=== PATIENT | male | born 1945 | race Caucasian/White ===

== ENCOUNTER 2016-09-08 17:02 | Inpatient (IN) ==
[2016-09-08] MEDS ORDERED: Ipratropium/Albuterol Neb 3 ML IH ONE (17:36)
[2016-09-08 17:53] LABS: Basophils # 0.1 K/mcL (0.0-0.2); Basophils % 0.6 %; Eosinophils # 0.9 K/mcL (0.0-0.6); Hematocrit 50.1 % (37.5-50.1); Hemoglobin 16.5 g/dL (12.9-16.9); Immature Granulocytes % 0.3 % (0-4); Lymphocytes # 1.6 K/mcL (0.6-4.6); Lymphocytes % 18.1 %; Mean Corpuscular HGB Conc 32.9 g/dL (31.6-35.5); Mean Corpuscular Hemoglobin 29.1 pg (28.0-33.3); Mean Corpuscular Volume 88.4 fL (83.0-100.0); Mean Platelet Volume 8.8 fL (9.4-12.4); Monocytes # 0.7 K/mcL (0.0-1.3); Monocytes % 8.3 %; Neutrophils # 5.6 K/mcL (1.6-8.9); Platelet Count 279 K/mcL (140-400); Red Blood Count 5.67 M/mcL (4.19-5.50); Red Cell Distribution Width 13.8 % (11.5-14.5); Segmented Neutrophils % 62.7 %
[2016-09-08 18:07] LABS: BUN/Creatinine Ratio 14 (6-26); Blood Urea Nitrogen 15 mg/dL (8-26); Calcium 9.8 mg/dL (8.6-10.8); Carbon Dioxide 28 mEq/L (19-29); Chloride 102 mEq/L (98-109); Glucose 92 mg/dL (70-99); Osmolality,Calculated 288 (280-300); Potassium 4.5 mEq/L (3.5-4.5); Sodium 139 mEq/L (136-145); eGFR For African Americans > 60 (> 60); eGFR For Non-African Americans > 60 (> 60)
--- NOTE | 2016-09-08 18:11 | Emergency Department Note ---
Disposition Clinical Impression: Lung disease, SOB (shortness of breath), Abnormal chest x-ray, Necrotizing pneumonia, Elevated blood pressure reading Disposition: Admitted As Inpatient Condition: Fair SOB HPI - General Chief Complaint: ED Shortness of Breath/Dyspnea Stated Complaint: ROSA Time Seen by Provider: 09/08/16 17:35 Source: patient Limitations: no limitations - History of Present Illness 71 mL male comes in with chief complaint of shortness of breath. Patient states he has had shortness of breath for the last 3-4 years. However in the last week this has worsened to the point where he cannot go from point a to point b. patient says he has a chronic productive clear sputum. Patient says he uses cigarettes but has recently quit. Patient does not have any past medical history, does not follow up with PCP. At presentation he is hypertensive with systolic of 200. Patient says he uses antiallergy medication for sinusitis. He denies fevers, chills. He denies chest pain, abdominal pain. He denies syncope. - Related Data Allergies Allergy/AdvReac Type Severity Reaction Status Date / Time Penicillins [PCN] AdvReac Hives Verified 09/08/16 17:11 Review of Systems: Constitutional: Denies fever, chills HEENT: Denies headache, vision changes, neck pain, sore throat, rhinorrhea, reports sinusitis Heart: Denies chest pain palpitations Lungs: Reports shortness of breath and productive cough Abdomen: Denies abdominal pain nausea vomiting diarrhea Extremities: Denies swelling, pain Neuro: Denies numbness, and tingling Past Medical History - Past Medical History Medical history: Reports: no medical history Psychiatric history: Reports: no psych history - Social History Smoking Status: Former smoker Smokeless Tobacco Status: No Alcohol use: Reports: rarely Drug use: Reports: none Physical Exam General: Alert and oriented to place time and situation. Without distress HEENT: Head atraumatic, normocephalic, EOMI, PERRLA, neck nontender to palpation , absent Lymphadenopathy, Moist Mucous Membranes, Heart: Regular rate and rhythm with no murmur Lungs: Diffuse wheezing upper and lower lobes bilaterally Abdomen: Soft nontender, nondistended positive bowel sounds Extremities: Absent pedal edema, Neuro: Cranial nerves II through XII intact, sensation equal bilaterally, strength upper and lower extremity 5/5, alert oriented 3 Vascular: Pedal and radialpulses 2 out of 4 - General Limitations: no limitations General appearance: alert Course Course Narrative: CBC, BMP, troponin, EKG, chest x-ray were done. - Reevaluation(s) Reevaluation #1: CBC and BMP did not show any abnormalities. Troponin was within normal limits. Chest showed right upper lobe consolidation however this was unclear if it was mass, pneumonia. Patient denies any previous surgeries to the chest area. QuantiFERON cold was ordered. CT chest with contrast ordered. Time: 18:47 Reevaluation #2: Patient was trasferred to Dr. Kohli. Time: 19:03 Vital Signs Temperature 98.2 F 09/08/16 17:07 Pulse Rate 90 09/08/16 17:07 Respiratory Rate 22 09/08/16 17:07 Blood Pressure 200/103 09/08/16 17:07 O2 Sat by Pulse Oximetry 94 09/08/16 17:07 Temperature 98.2 F 09/08/16 17:07 Pulse Rate 79 09/08/16 20:00 Respiratory Rate 18 09/08/16 21:20 Blood Pressure 168/99 09/08/16 21:20 O2 Sat by Pulse Oximetry 93 09/08/16 20:00 Oxygen Delivery Oxygen Delivery Room Air Shortness of Breath/Dyspnea - Medical Records Medical records reviewed: Yes I reviewed the patient's medical records. - Lab Data Lab results reviewed: Yes I reviewed the patient's lab results. Result diagrams: 09/08/16 17:46 09/08/16 17:46 Lab Results 09/08/16 09/08/16 09/08/16 Range/Units 17:46 17:46 17:46 WBC 9.0 (4.3-11.1) K/mcL RBC 5.67 H (4.19-5.50) M/mcL Hgb 16.5 (12.9-16.9) g/dL Hct 50.1 (37.5-50.1) % MCV 88.4 (83.0-100.0) fL MCH 29.1 (28.0-33.3) pg MCHC 32.9 (31.6-35.5) g/dL RDW 13.8 (11.5-14.5) % Plt Count 279 (140-400) K/mcL MPV 8.8 L (9.4-12.4) fL Immature Gran % 0.3 (0-4) % Seg Neutrophils % 62.7 % Lymphocytes % 18.1 % Monocytes % 8.3 % Eosinophils % 10.0 % Basophils % 0.6 % Neutrophils # 5.6 (1.6-8.9) K/mcL Lymphocytes # 1.6 (0.6-4.6) K/mcL Monocytes # 0.7 (0.0-1.3) K/mcL Eosinophils # 0.9 H (0.0-0.6) K/mcL Basophils # 0.1 (0.0-0.2) K/mcL Sodium 139 (136-145) mEq/L Potassium 4.5 (3.5-4.5) mEq/L Chloride 102 (98-109) mEq/L Carbon Dioxide 28 (19-29) mEq/L BUN 15 (8-26) mg/dL Creatinine 1.07 (0.72-1.25) mg/dL Est GFR ( Amer) > 60 (> 60) Est GFR (Non-Af Amer) > 60 (> 60) BUN/Creatinine Ratio 14 (6-26) Glucose 92 (70-99) mg/dL Calculated Osmolality 288 (280-300) Lactic Acid (0.5-2.2) mmol/L Calcium 9.8 (8.6-10.8) mg/dL Troponin I 0.01 (0-0.03) ng/mL B-Natriuretic Peptide (0-100) pg/mL 09/08/16 09/08/16 Range/Units 17:46 20:53 WBC (4.3-11.1) K/mcL RBC (4.19-5.50) M/mcL Hgb (12.9-16.9) g/dL Hct (37.5-50.1) % MCV (83.0-100.0) fL MCH (28.0-33.3) pg MCHC (31.6-35.5) g/dL RDW (11.5-14.5) % Plt Count (140-400) K/mcL MPV (9.4-12.4) fL Immature Gran % (0-4) % Seg Neutrophils % % Lymphocytes % % Monocytes % % Eosinophils % % Basophils % % Neutrophils # (1.6-8.9) K/mcL Lymphocytes # (0.6-4.6) K/mcL Monocytes # (0.0-1.3) K/mcL Eosinophils # (0.0-0.6) K/mcL Basophils # (0.0-0.2) K/mcL Sodium (136-145) mEq/L Potassium (3.5-4.5) mEq/L Chloride (98-109) mEq/L Carbon Dioxide (19-29) mEq/L BUN (8-26) mg/dL Creatinine (0.72-1.25) mg/dL Est GFR ( Amer) (> 60) Est GFR (Non-Af Amer) (> 60) BUN/Creatinine Ratio (6-26) Glucose (70-99) mg/dL Calculated Osmolality (280-300) Lactic Acid 0.9 (0.5-2.2) mmol/L Calcium (8.6-10.8) mg/dL Troponin I (0-0.03) ng/mL B-Natriuretic Peptide 45 (0-100) pg/mL - Radiology Data Radiology results reviewed: Yes I reviewed the patient's radiology results. - EKG Data EKG attestation: Yes I reviewed and interpreted this EKG. EKG results narrative: Sinus rate 88, with no st-twave changes, poor r-wave progression, Qwaves in leas V2-6. Normal sinus rhythm. Attestation Statement - Attestation Attestation: I examined this patient and my medical decision-making was reviewed with the PROCESS ENGINEER/PA/Advanced Practice Nurse/Resident Physician. I agree with the documented findings, disposition and treatment plan as described except to the extent set forth below.
--- NOTE | 2016-09-08 19:11 | Emergency Department Note ---
Disposition Clinical Impression: Lung disease, SOB (shortness of breath), Abnormal chest x-ray, Necrotizing pneumonia, Elevated blood pressure reading Disposition: Transfer Other Condition: Fair General Adult HPI - General Chief complaint: ED Shortness of Breath/Dyspnea Stated complaint: ROSA Time Seen by Provider: 09/08/16 17:35 Source: patient Limitations: no limitations - History of Present Illness HPI Narrative: Please see prior providers notes for complete history and physical. This is a continuation of prior providers documentation. Pain Scale: 0 - Related Data Allergies Allergy/AdvReac Type Severity Reaction Status Date / Time Penicillins [PCN] AdvReac Hives Verified 09/08/16 17:11 Past Medical History - Past Medical History Medical history: Reports: no medical history Psychiatric history: Reports: no psych history - Social History Smoking Status: Former smoker Smokeless Tobacco Status: No Alcohol use: Reports: rarely Drug use: Reports: none Physical Exam - General Limitations: no limitations General appearance: alert, in no apparent distress - Head Head exam: atraumatic, normal inspection - Eye Eye exam: Present: normal appearance, EOMI - ENT ENT exam: normal exam, mucous membranes moist - Neck Neck exam: Present: normal inspection, trachea midline - Chest Chest inspection: Present: normal inspection, symmetric chest wall rise - Respiratory Respiratory exam: Present: wheezes (faint expiratory wheeze), prolonged expiratory phase. Absent: respiratory distress - Cardiovascular Cardiovascular exam: Present: regular rate, normal rhythm - Abdominal Exam Abdominal exam: Present: soft, Non-Tender - Extremities Exam Extremities exam: Present: normal inspection. Absent: pedal edema - Neurological Exam Neurological exam: Present: alert - Skin Skin exam: Present: warm, dry, intact, normal color Course Course Narrative: Patient seen and examined. History confirmed by the patient bedside. Dyspnea at rest and with exertion over the past 4-5 days. Baseline cough. No fevers. No chest pain. Patient states he does not see a provider on a regular basis. Patient does have a smoking history. Awaiting CT of the chest. - Reevaluation(s) Reevaluation #1: No further needs at this time for the patient. Time: 19:13 Reevaluation #2: Patient was updated on plan of care. All questions were asked. Time: 20:18 Vital Signs Temperature 98.2 F 09/08/16 17:07 Pulse Rate 90 09/08/16 17:07 Respiratory Rate 22 09/08/16 17:07 Blood Pressure 200/103 09/08/16 17:07 O2 Sat by Pulse Oximetry 94 09/08/16 17:07 Temperature 98.2 F 09/08/16 17:07 Pulse Rate 79 09/08/16 20:00 Respiratory Rate 16 09/08/16 20:00 Blood Pressure 153/111 09/08/16 20:00 O2 Sat by Pulse Oximetry 93 09/08/16 20:00 Oxygen Delivery Oxygen Delivery Room Air Medical Decision Making - MDM Narrative Medical decision making narrative: 71-year-old male with a significant smoking history presents for evaluation of dyspnea. Noticed dyspnea over the past 1-2 years that is worsened acutely in the past 5 days. Dyspnea at rest as well as exertion. Patient states he is not able to perform his activities of daily living without stopping to catch his breath. Denies any chest pain. Notes a clear productive sputum which is unchanged from his baseline. Denies any fevers. Denies being immunocompromise. Periods of an incarceration. No night sweats. No recent travel. Patient was evaluated with labs and initial chest x-rays as well as aerosols. Patient's aerosols seem to improve his breathing. Patient's chest x- ray was suggestive of possible right upper lobe infiltrate or cavitary lesion. In order to further characterize the lesion the patient had a CT of the chest with contrast. Shows abscess versus necrotizing pneumonia. Patient started on triple antibiotics. Blood cultures. We will discussed with the hospitalist for admission and further disposition. Patient was accepted by the hospitalist. Patient was started on Levaquin, vancomycin as well as clindamycin due to concerns of possible abscess necrotizing pneumonia. - Lab Data Lab results reviewed: Yes I reviewed the patient's lab results. Result diagrams: 09/08/16 17:46 09/08/16 17:46 Lab Results 09/08/16 09/08/16 09/08/16 Range/Units 17:46 17:46 17:46 WBC 9.0 (4.3-11.1) K/mcL RBC 5.67 H (4.19-5.50) M/mcL Hgb 16.5 (12.9-16.9) g/dL Hct 50.1 (37.5-50.1) % MCV 88.4 (83.0-100.0) fL MCH 29.1 (28.0-33.3) pg MCHC 32.9 (31.6-35.5) g/dL RDW 13.8 (11.5-14.5) % Plt Count 279 (140-400) K/mcL MPV 8.8 L (9.4-12.4) fL Immature Gran % 0.3 (0-4) % Seg Neutrophils % 62.7 % Lymphocytes % 18.1 % Monocytes % 8.3 % Eosinophils % 10.0 % Basophils % 0.6 % Neutrophils # 5.6 (1.6-8.9) K/mcL Lymphocytes # 1.6 (0.6-4.6) K/mcL Monocytes # 0.7 (0.0-1.3) K/mcL Eosinophils # 0.9 H (0.0-0.6) K/mcL Basophils # 0.1 (0.0-0.2) K/mcL Sodium 139 (136-145) mEq/L Potassium 4.5 (3.5-4.5) mEq/L Chloride 102 (98-109) mEq/L Carbon Dioxide 28 (19-29) mEq/L BUN 15 (8-26) mg/dL Creatinine 1.07 (0.72-1.25) mg/dL Est GFR ( Amer) > 60 (> 60) Est GFR (Non-Af Amer) > 60 (> 60) BUN/Creatinine Ratio 14 (6-26) Glucose 92 (70-99) mg/dL Calculated Osmolality 288 (280-300) Lactic Acid (0.5-2.2) mmol/L Calcium 9.8 (8.6-10.8) mg/dL Troponin I 0.01 (0-0.03) ng/mL B-Natriuretic Peptide (0-100) pg/mL 09/08/16 09/08/16 Range/Units 17:46 20:53 WBC (4.3-11.1) K/mcL RBC (4.19-5.50) M/mcL Hgb (12.9-16.9) g/dL Hct (37.5-50.1) % MCV (83.0-100.0) fL MCH (28.0-33.3) pg MCHC (31.6-35.5) g/dL RDW (11.5-14.5) % Plt Count (140-400) K/mcL MPV (9.4-12.4) fL Immature Gran % (0-4) % Seg Neutrophils % % Lymphocytes % % Monocytes % % Eosinophils % % Basophils % % Neutrophils # (1.6-8.9) K/mcL Lymphocytes # (0.6-4.6) K/mcL Monocytes # (0.0-1.3) K/mcL Eosinophils # (0.0-0.6) K/mcL Basophils # (0.0-0.2) K/mcL Sodium (136-145) mEq/L Potassium (3.5-4.5) mEq/L Chloride (98-109) mEq/L Carbon Dioxide (19-29) mEq/L BUN (8-26) mg/dL Creatinine (0.72-1.25) mg/dL Est GFR ( Amer) (> 60) Est GFR (Non-Af Amer) (> 60) BUN/Creatinine Ratio (6-26) Glucose (70-99) mg/dL Calculated Osmolality (280-300) Lactic Acid 0.9 (0.5-2.2) mmol/L Calcium (8.6-10.8) mg/dL Troponin I (0-0.03) ng/mL B-Natriuretic Peptide 45 (0-100) pg/mL - Radiology Data Radiology results reviewed: Yes I reviewed the patient's radiology results. Chest X-Ray 09/08/16 17:35 IMPRESSION: Volume loss to right lung to include superior deviation of right hilum along with opacities to right upper lung zone as well as rightward deviation of trachea. Findings are suggestive for prior intervention such as partial pneumonectomy. Correlate clinically. It would be difficult to exclude superimposed acute process such as right upper lobe pneumonia. Other underlying pathology, to include neoplastic pathology, cannot be excluded. No priors to assess for change. If there are any outside prior studies these would be of use. D/ / 09/08/2016 18:20:59 Piter Wang MD / andrew Interpreting Provider: Piter Wang MD Chest CT 09/08/16 18:40 IMPRESSION: 1. Severe bilateral emphysematous changes with consolidative changes within the posterior aspect of the right upper lobe with central region of low attenuation measuring 2.1 x 3.3 x 2.1 cm concerning central necrosis/abscess and necrotizing pneumonia. Follow-up to resolution recommended after appropriate clinical therapy. D/ / Nghia Schwartz MD / Nghia Schwartz MD Interpreting Provider: Nghia Schwartz MD aleesa - [facility] Situation: Demographics Background: Presenting Complaint, Relevant PMH, Meds, & Allergies Assessment: Vital Signs, Course and respsone to treatment, Patient/Family Expectation, Pertinant Lab Results Recommendation: Barrier(s) to disposition, Recommendation based on pending studies, treatments, or consults [facility] Report Given to: Dr. John Bey Repor Time: 20:47 Attestation Statement - Attestation Attestation: I examined this patient and my medical decision-making was reviewed with the [employer] SUPERINTENDENT/PA/Advanced Practice Nurse/Resident Physician. I agree with the documented findings, disposition and treatment plan as described except to the extent set forth below. 71-year-old male presents ED because of cough and dyspnea. Symptoms have been evolving for the past week and escalated today. Low-grade fever. No chills or rigors. No focal chest pain. No vomiting or diarrhea. No joint pain. No known ill exposures. No recent long distance travel. Elderly male slight slightly tachypneic. On arrival wheezes noted. Chest is with focal rhonchi on the right lateral lung josé with biphasic wheezes throughout the right lung. Left lung is fairly clear. Cardiac exam regular abdomen soft nondistended nontender. Extremity is warm and dry without rash or asymmetric edema. Chest x-ray with marketed changes in the right upper lung field she just above infiltrate. CT of the chest suggest necrotizing pneumonia. He did improve with sequential aerosols but will require aggressive IV antibiotics and further workup. He is given IV Levaquin, vancomycin and clindamycin. He is admitted to the hospitalist service. The high probability of a clinically significant, sudden or life threatening deterioration of the [cardiopulmonary] system(s) required my full and direct attention, intervention and personal management. The aggregate critical care time was [35] minutes. This time is in addition to time spent performing reported procedures but includes the following: [x] Data Review and interpretation [x] Patient assessment and monitoring of vital signs [x] Documentation [x] Medication orders and management
[2016-09-08] MEDS ORDERED: Levofloxacin 750 MG/150 ML 750 MG/150 ML BAG IVPB ONE (19:29)
[2016-09-08] MEDS ORDERED: Piperacillin/Tazobactam 4.5 GM in D5% in Water (Mini-Bag+) 100 ML IVPB ONE (19:42)
[2016-09-08] MEDS ORDERED: Vancomycin 1,250 MG in D5% in Water 250 ML IVPB ONE (19:43)
[2016-09-08] MEDS ORDERED: 0.9 % Sodium Chloride 1,000 ML IVC ONE (19:44)
[2016-09-08] MEDS ORDERED: Clindamycin 600 MG/50 ML 600 MG/50 ML IV.SOLN IVPB ONE (20:46)
[2016-09-08] MEDS ORDERED: Naloxone 0.4 MG/ML INJ IVP PRN (21:58)
[2016-09-08] MEDS ORDERED: methylPREDNISolone 125 MG/2 ML VIAL IVP ONE (22:00)
[2016-09-08] MEDS ORDERED: Ipratropium/Albuterol Neb 3 ML IH PRN (22:00)
--- NOTE | 2016-09-08 22:09 | Internal Med History&Physical ---
Date of Encounter: 09/08/16 Time of Encounter: 22:05 Assessment and Plan (1) Acute exacerbation of chronic obstructive airways disease Current visit: Yes Status: Acute Acute exacerbation of COPD: Treat with Solu-Medrol, levofloxacin, duo-nebs and mucinex. (2) Abnormal chest x-ray Current visit: Yes Status: Acute Abnormal chest x-ray and CT scan of the chest. CT chest reported: Severe bilateral emphysematous changes with consolidative changes within the posterior aspect of the right upper lobe with central region of low attenuation. Clinically he does not seem to have pneumonia. His clinical presentation seem to be related to acute exacerbation of COPD. Will request pulmonary consult for further workup and management. (3) Hypertension Current visit: Yes Status: Acute Started on amlodipine. Monitor BP. Qualifiers: Hypertension type: essential hypertension Qualified Code(s): I10 - Essential (primary) hypertension (4) DVT prophylaxis Current visit: Yes Status: Acute subq heparin Internal Medicine - H&P: HPI Chief complaint: Shortness of breath Admitted From: Emergency Dept Plans for Post Hospital Care: Home History of present illness: Mr. Hidalgo is a 71 year old male, who denies significant past medical history presents with 4-5 day history of acute worsening of shortness of breath. He noticed some shortness of breath for about 1-2 years, with acute worsening in the last 4-5 days. He reports shortness of breath at rest and on minimal exertion. He has cough with some white sputum. He denies chest pain, fever, chills, nausea, vomiting, palpitations, abdominal pain, dysuria, hematuria, bowel problems. He was evaluated in the emergency department and was treated with the bronchodilators. Chest x-ray was abnormal and hence a CT scan of the chest was done which reported Severe bilateral emphysematous changes with consolidative changes within the posterior aspect of the right upper lobe with central region of low attenuation. He was given clindamycin, vancomycin, Zosyn and levofloxacin in the ER. He is admitted to the hospitalist service for further management. Pt has 40 year h/o smoking. He denies occupation exposure to dust Past Med Surg Social Fam HX - Past Medical History Medical history: no medical history Psychiatric history: no psych history - Past Surgical History Surgical History: no surgical history - Social History Smoking Status: Former smoker Smokeless Tobacco Status: No Alcohol use: rarely Drug use: none - Family History Father History Unknown: Yes Age at : 69 Cause of : heart Hx Family Cardiac Disorders: Yes Hx Family Respiratory Disorders: Yes Hx Family Cancer: No Hx Family GI Disorders: No Hx Family Genitourinary Disorders: No Hx Family Endocrine Disorder: Yes Hx Family Musculoskeletal Disorders: No Hx Family Neuromuscular Disorders: No Internal Medicine - H&P: Meds Allergies Penicillins [PCN] Adverse Reaction (Verified 09/08/16 17:11) Hives All Systems PM: A 10-system review of systems was performed and is negative for pertinent findings except as documented above in the HPI. - Constitutional Vitals: Temp Pulse Resp BP Pulse Ox 98.2 F 79 18 168/99 93 09/08/16 17:07 09/08/16 20:00 09/08/16 21:20 09/08/16 21:20 09/08/16 20:00 Exam: General: Short of breath at rest at the time of my evaluation. Using pursed lips HEENT: Oral mucosa is moist. No conjunctival palor or scleral icterus Neck: No obvious neck swellings Lungs: B/L extensive wheezing present Cardiac: Regular rate and rhythm. No significant murmurs Abdomen: Soft, non tender. Bowel sounds present Genitourinary: No benavides catheter Neurological: Alert and oriented. No gross localizing deficits Psych: Not aggressive or agitated Extremities: no significant leg edema Skin: No generalized rash Internal Med - H&P Results - Labs CBC & Chem 7: 09/08/16 17:46 09/08/16 17:46 - EKG Data -: EKG Interpreted by Myself EKG shows normal: sinus rhythm - EKG Data EKG comments: 09/08/16 23:06 ?RBBB - Impressions ITS Impressions Chest X-Ray 09/08/16 17:35 IMPRESSION: Volume loss to right lung to include superior deviation of right hilum along with opacities to right upper lung zone as well as rightward deviation of trachea. Findings are suggestive for prior intervention such as partial pneumonectomy. Correlate clinically. It would be difficult to exclude superimposed acute process such as right upper lobe pneumonia. Other underlying pathology, to include neoplastic pathology, cannot be excluded. No priors to assess for change. If there are any outside prior studies these would be of use. D/ / 09/08/2016 18:20:59 Piter Wang MD / andrew Interpreting Provider: Piter Wang MD Chest CT 09/08/16 18:40 IMPRESSION: 1. Severe bilateral emphysematous changes with consolidative changes within the posterior aspect of the right upper lobe with central region of low attenuation measuring 2.1 x 3.3 x 2.1 cm concerning central necrosis/abscess and necrotizing pneumonia. Follow-up to resolution recommended after appropriate clinical therapy. D/ / Nghia Schwartz MD / Nghia Schwartz MD Interpreting Provider: Nghia Schwartz MD
[2016-09-08] MEDS: Ipratropium/Albuterol Neb 3 ML IH SCH (22:16)
[2016-09-08] MEDS: Levofloxacin 500 MG/100 ML 500 MG/100 ML BAG IVPB SCH (22:59)
[2016-09-09] MEDS: amLODIPine 5 MG TABLET PO SCH ×2 (01:30→09:14)
[2016-09-09] MEDS: Ipratropium/Albuterol Neb 3 ML IH SCH ×4 (04:49→22:15)
[2016-09-09] MEDS: MethylPREDNISolone 40 MG/ML VIAL IVP SCH ×4 (06:28→23:05)
[2016-09-09] MEDS: *HR* Heparin 5,000 UNIT/ML VIAL SQ SCH ×3 (06:30→23:05)
--- NOTE | 2016-09-09 08:20 | Internal Med Progress Note ---
Date of Encounter: 09/09/16 Time of Encounter: 08:20 - Assessment and plan (1) Acute exacerbation of chronic obstructive airways disease Current Visit: Yes Status: Acute Assessment and plan: 71/male No PCP Retired [address] [facility] [employer]. Started smoking at the age of 16, 1 pack a day, stopped smoking 3 weeks back. Worsening shortness of breath for 4-5 days. Associated with wheezing and cough. Came to the emergency room for evaluation as patient could not walk from bed to bathroom. He Has a daughter who lives in [place]. Evaluated by emergency room and concern was raised regarding possible lung abscess. Patient is afebrile, saturation on room air 98%, is not tachypneic/tachycardic. White blood cell count normal, no band cells, renal function normal. Patient has a bilateral polyphonic wheeze. Assessment: Likely COPD exacerbation unlikely lung abscess Plan: We will continue IV levofloxacin 750 mg once a day We will continue IV steroids 40 mg every 8 hours We will continue bronchodilators every 4 hours Close observation. Will discuss case with pulmonary. (2) Hypertension Current Visit: Yes Status: Acute Assessment and plan: Patient was started on amlodipine. We will continue to observe the blood pressure. Qualifiers: Hypertension type: essential hypertension Qualified Code(s): I10 - Essential (primary) hypertension (3) DVT prophylaxis Current Visit: Yes Status: Acute Assessment and plan: Heparin. Medical decision making: This patient has a [id number]-[id number] risk of worsening in spite of being on appropriate antibiotics in view of underlying lung disease. - Subjective Interval history: Seen and examined. Chart is reviewed. Patient is comfortably lying in the bed. Patient stood up and sat on the chair next to the bed. Patient denies any chest pain, shortness of breath, abdominal pain, vomiting and diarrhea. - Constitutional Vitals: Temp Pulse Resp BP Pulse Ox 98.2 F 85 16 141/84 98 09/09/16 06:57 09/09/16 06:57 09/09/16 06:57 09/09/16 06:57 09/09/16 06:57 General appearance: Present: A&O X 3, pleasant, no acute distress, answers questions appropriately - Head Head exam: Present: atraumatic, normocephalic - Eye Eye exam: Present: PERRL, conjuntiva pink, sclera anicteric Pupils: Present: PERRL - Neck Neck exam general surgery: Present: supple, trachea midline. Absent: lymphadenopathy - Respiratory Respiratory exam: Present: CTAB. Absent: accessory muscle use, rales, rhonchi, wheezes - Cardiovascular Cardiovascular exam: Present: RRR, +S1, +S2. Absent: diastolic murmur, gallop, rubs, systolic murmur - GI/Abdominal GI/Abdominal exam: Present: normal bowel sounds, soft, no peritoneal signs. Absent: distended, tenderness - Extremities Exam Extremities exam: Present: warm, radial pulses palpable and symetrical. Absent : calf tenderness, cyanotic, pedal edema - Neurological Exam Neurological exam: Present: CN II-XII intact, oriented X3, no focal deficits. Absent: pronater drift, facial droop, speech deficit - Skin Skin exam: Present: dry, intact Internal Medicine: Result - Labs CBC & Chem 7: 09/08/16 17:46 09/08/16 17:46 Consult Discharge Plan - Plan Referrals: NO,PCP [Primary Care Provider] -
[2016-09-09] MEDS: Famotidine 20 MG TABLET PO SCH ×2 (09:13→20:56)
[2016-09-09] MEDS: Lactobacillus 1 EACH CAP.SPRINK PO SCH ×2 (09:13→20:56)
--- NOTE | 2016-09-09 15:01 | Pulmonology Consult Note ---
Date of Encounter: 09/09/16 Time of Encounter: 14:59 Assessment and Plan (1) Abnormal chest CT Current Visit: Yes Status: Acute As previously noted, the abnormal CT scan findings of the chest are likely due to fibrocystic disease of the lung which given the findings of calcified lymph nodes may be the stigmata of prior histoplasmosis. The patient may also have focal bronchiectasis accompanying fibrocystic disease changes and given the area of low attenuation within the parenchymal infiltrate within the right upper lobe, this suggests necrosis. This finding may be due to infection ( although the patient does not have any specific symptoms highly suggestive of infection) or less likely malignancy. Nonetheless, the patient is an active smoker and does have other findings suggestive of emphysema/COPD and thus I think it prudent that he undergo bronchoscopy with attention to the right upper lobe for further evaluation. I think it would be prudent to provide antibiotic therapy however Levaquin should be sufficient pending results of bronchoscopy. The patient obviously does have emphysema/COPD I believe he is symptomatic from the same and therefore he would benefit from use of bronchodilator therapy for short-term long-term management and perhaps would also benefit from a short course of systemic steroids. I reviewed the situation with the patient and the primary service. He has agreed to bronchoscopy which can be performed at the discretion of the pulmonary rounding service next week. Mekhi Claudia [phone] Code(s): R93.8 - Abnormal findings on diagnostic imaging of other specified body structures SNOMED Code(s): 291611122 History of Present Illness Consult date: 09/09/16 Chief complaint: Abnormal chest CT scan History of present illness: This is a pleasant 71-year-old male active cigarette smoker of at least 40-pack- year intensive who undoubtedly has underlying COPD who was admitted to the hospital with complaints of rather abrupt worsening of mild chronic breathlessness. He denied concurrent difficulty with chest pain, purulent sputum expectoration, hemoptysis. Given his complaints, imaging study of the chest was obtained which revealed several abnormalities and hence pulmonary consultation requested. 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 He does not recall prior respiratory infections he has either a child or young adult. Retrospectively, he does admit to rather progressive mild breathlessness and mild activity limitation over the past several years. Past Med Surg Social Fam HX - Past Medical History Medical history: no medical history Psychiatric history: no psych history - Past Surgical History Surgical History: no surgical history - Social History Smoking Status: Former smoker Smokeless Tobacco Status: No Alcohol use: rarely Drug use: none - Family History Father History Unknown: Yes Age at : 69 Cause of : heart Hx Family Cardiac Disorders: Yes Hx Family Respiratory Disorders: Yes Hx Family Cancer: No Hx Family GI Disorders: No Hx Family Genitourinary Disorders: No Hx Family Endocrine Disorder: Yes Hx Family Musculoskeletal Disorders: No Hx Family Neuromuscular Disorders: No Medications and Allergies Allergies Penicillins [PCN] Adverse Reaction (Verified 09/08/16 17:11) Hives All Systems: A 10-system review of systems was performed and is negative for pertinent findings except as documented above in the HPI. - Constitutional Constitutional: other (Patient denies weight loss, night sweats, fevers or chills furthermore, he denies anorexia) - Respiratory Respiratory: as per HPI Physical Examination Vital Signs: Vital Signs, Last 4 Hours Temp Pulse Resp BP Pulse Ox 09/09/16 11:32 98.3 F 91 16 154/90 97 General appearance: no acute distress, other (Patient appears his stated age) Eyes: nonicteric ENT: oropharynx moist Neck: supple Inspection: other (Mild kyphosis) Auscultation: bilateral: diminished breath sounds (Clear lung josé to auscultation) Cardiovascular: regular rate and rhythm Gastrointestinal: normoactive bowel sounds, non-distended Extremities: no cyanosis, no edema, no clubbing normal mental status, non-focal exam mood appropriate Results - Laboratory Findings CBC and BMP: 09/08/16 17:46 09/08/16 17:46 Abnormal lab findings: Abnormal lab results RBC 5.67 M/mcL (4.19-5.50) H 09/08/16 17:46 MPV 8.8 fL (9.4-12.4) L 09/08/16 17:46 Eosinophils # 0.9 K/mcL (0.0-0.6) H 09/08/16 17:46 - Diagnostic Findings CT scan - chest: other (Chest CT scan reviewed notable for fibrocystic disease with hilar retraction within the right upper lung zone calcified pretracheal lymph nodes and right hilar lymph nodes emphysematous changes within the left lung particularly left upper lung zone. In addition, within the posterior segment of the right upper lobe, there is parenchymal infiltrate and suggestion within the parenchyma of low attenuation area suggestive of necrosis.) - Clinical Findings Intake & Output: Intake & Output 09/08/16 09/09/16 09/09/16 23:59 07:59 15:59 Intake Total 100 / 100 480 / 480 Balance 100 / 100 480 / 480 Weight 81.1 kg Consult Discharge Plan - Plan Referrals: NO,PCP [Primary Care Provider] -
--- NOTE | 2016-09-09 17:55 | Electrocardiograph Report ---
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
[2016-09-09] MEDS: Levofloxacin 500 MG/100 ML 500 MG/100 ML BAG IVPB SCH (23:05)
[2016-09-10] MEDS: Ipratropium/Albuterol Neb 3 ML IH SCH ×4 (03:32→22:35)
[2016-09-10] MEDS: *HR* Heparin 5,000 UNIT/ML VIAL SQ SCH ×3 (05:14→22:29)
--- NOTE | 2016-09-10 06:55 | Pulmonology Progress Note ---
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 Patient will benefit from maintenance inhaler regimien such as LAMA at time of discharge. He can be transitioned to enteral steroids to complete a 5 Day burst (e.g prednisone 40mg daily) (3) DVT prophylaxis Current Visit: Yes Status: Acute cont chemical DVT prophylaxis. Unlikely that RLE pain is VTE related given patient has been recieiving prophylaxis. Will defer to primary to for further evaluation including RLE u/s if felt indicated. (4) Necrotizing pneumonia Current Visit: Yes Status: Acute I suspect that given physical exam findings this is not truly "necrotizing" PNA as much as chronic infection superimposed on chronic lung disease. -Plan for bronch today. -Patient to remain NPO -Cont Levaquin. -Cultures pending Subjective Principal diagnosis: Pneumonia Interval history: From a respiratory standpoint, patient denies any changes. He does report that his right leg "buckled" while he was walking precipitated by intense pain. It has been sore since. Objective PUL Vital signs: Last Vital Signs Temp 97.7 F 09/10/16 06:43 Pulse 93 09/10/16 06:43 Resp 15 09/10/16 06:43 BP 135/82 09/10/16 06:43 Pulse Ox 95 09/10/16 06:43 General appearance: no acute distress Auscultation: right: diminished breath sounds (right upper lung field), bilateral: clear (no wheezes) Cardiovascular: regular rate and rhythm Extremities: no edema, no clubbing Musculoskeletal: other (right leg without swelling or erythema mild tenderness to palpation over gastronemius ) Results - Laboratory Findings CBC and BMP: 09/08/16 17:46 09/08/16 17:46 Abnormal lab findings: Abnormal lab results RBC 5.67 M/mcL (4.19-5.50) H 09/08/16 17:46 MPV 8.8 fL (9.4-12.4) L 09/08/16 17:46 Eosinophils # 0.9 K/mcL (0.0-0.6) H 09/08/16 17:46 - Diagnostic Findings Chest x-ray: report reviewed, image reviewed CT scan - chest: report reviewed, image reviewed - Clinical Findings Intake & Output: Intake & Output 09/09/16 09/09/16 09/10/16 15:59 23:59 07:59 Intake Total 720 / 720 0 / 0 Output Total 0 / 0 Balance 720 / 720 0 / 0 Weight 82.1 kg Consult Discharge Plan - Plan Referrals: NO,PCP [Primary Care Provider] -
[2016-09-10] MEDS: MethylPREDNISolone 40 MG/ML VIAL IVP SCH ×2 (09:22→18:12)
[2016-09-10] MEDS: amLODIPine 5 MG TABLET PO SCH (09:22)
[2016-09-10] MEDS: Lactobacillus 1 EACH CAP.SPRINK PO SCH ×2 (09:22→22:24)
[2016-09-10] MEDS: Famotidine 20 MG TABLET PO SCH ×2 (09:22→22:24)
[2016-09-10] MEDS ORDERED: Tetracaine/Benzocaine/Butamben 200MG/SPRAY (100SPY/BOT) MM ONE (15:25)
[2016-09-10] MEDS ORDERED: *HR* EPINEPHrine 1 MG/10 ML SYRINGE INTRATRACH PRN (15:25)
--- NOTE | 2016-09-10 15:27 | Pre-Sedation Evaluation ---
Pre-sedation evaluation - Pre-sedation checklist Date of procedure: 09/10/16 Procedure: Bronchoscopy Recent Vitals: Last Vital Signs Temp 97.7 F 09/10/16 11:49 Pulse 94 09/10/16 11:49 Resp 15 09/10/16 11:49 BP 146/87 09/10/16 11:49 Pulse Ox 94 09/10/16 11:49 H&P (including ROS) documented in medical record: Yes Previous reaction to sedatives/anesthetics: No Dietary Status: NPO after Midnight Airway Assessment: Patient can open mouth completely, TMJ function normal Dentition: No loose teeth or bridges Possible difficult airway: No ASA Classification *see protocol: CLASS III-Severe systemic disease Plan of Care: Pt appropriate candidate for procedure/moderate/conscious sedation , Risks/benefits of procedure/sedation discussed w/ patient/family
[2016-09-10] MEDS ORDERED: 0.9 % Sodium Chloride 1,000 ML IVC SCH (15:30)
[2016-09-10] MEDS ORDERED: *HR* Midazolam HCl 5 MG/5 ML VIAL IVP ONE (15:31)
[2016-09-10] MEDS ORDERED: *HR* FentaNYL (PF) 100 MCG/2 ML VIAL ONE (15:32)
[2016-09-10] MEDS ORDERED: Lidocaine Viscous Oral Soln 15 ML SOLUTION ONE (15:35)
[2016-09-10] MEDS: *HR* Midazolam HCl 5 MG/5 ML VIAL IVP PRN ×4 (16:13→16:19)
--- NOTE | 2016-09-10 16:13 | Internal Med Progress Note ---
Date of Encounter: 09/10/16 Time of Encounter: 16:11 - Assessment and plan (1) Acute exacerbation of chronic obstructive airways disease Current Visit: Yes Status: Acute Assessment and plan: 71/male No PCP Retired [address] [facility] [employer]. Started smoking at the age of 16, 1 pack a day, stopped smoking 3 weeks back. Worsening shortness of breath for 4-5 days. Associated with wheezing and cough. Came to the emergency room for evaluation as patient could not walk from bed to bathroom. He Has a daughter who lives in [place]. Evaluated by emergency room and concern was raised regarding possible lung abscess. Patient is afebrile, saturation on room air 98%, is not tachypneic/tachycardic. White blood cell count normal, no band cells, renal function normal. Patient has a bilateral polyphonic wheeze. Assessment: Likely COPD exacerbation unlikely lung abscess Plan: We will continue IV levofloxacin 750 mg once a day We will continue IV steroids 40 mg every 8 hours We will continue bronchodilators every 4 hours Close observation. Will discuss case with pulmonary. 05/17/2016 Day 2: Levofloxacin. Noted that patient is scheduled for bronchoscopy today. We will wait for pulmonary recommendation. (2) Hypertension Current Visit: Yes Status: Acute Assessment and plan: Patient was started on amlodipine. We will continue to observe the blood pressure. Qualifiers: Hypertension type: essential hypertension Qualified Code(s): I10 - Essential (primary) hypertension (3) DVT prophylaxis Current Visit: Yes Status: Acute Assessment and plan: Heparin. Medical decision making: This patient has a [id number]-oy-vebkqyog risk of worsening in spite of being on appropriate antibiotics in view of underlying lung disease. - Subjective Interval history: Seen and examined. Chart is reviewed. Patient is comfortably lying in the bed. Patient stood up and sat on the chair next to the bed. Patient denies any chest pain, shortness of breath, abdominal pain, vomiting and diarrhea. 05/17/2016 Seen and examined. Chart reviewed. Patient comfortably lying in bed. Patient is scheduled for bronchoscopy today. She denies shortness of breath, hemoptysis, dizziness or diarrhea. - Constitutional Vitals: Temp Pulse Resp BP Pulse Ox 98.0 F 101 20 150/87 97 09/10/16 15:50 09/10/16 16:10 09/10/16 16:10 09/10/16 16:10 09/10/16 16:10 General appearance: Present: A&O X 3, pleasant, no acute distress, answers questions appropriately - Head Head exam: Present: atraumatic, normocephalic - Eye Eye exam: Present: PERRL, conjuntiva pink, sclera anicteric Pupils: Present: PERRL - Neck Neck exam general surgery: Present: supple, trachea midline. Absent: lymphadenopathy - Respiratory Respiratory exam: Present: CTAB. Absent: accessory muscle use, rales, rhonchi, wheezes - Cardiovascular Cardiovascular exam: Present: RRR, +S1, +S2. Absent: diastolic murmur, gallop, rubs, systolic murmur - GI/Abdominal GI/Abdominal exam: Present: normal bowel sounds, soft, no peritoneal signs. Absent: distended, tenderness - Extremities Exam Extremities exam: Present: warm, radial pulses palpable and symetrical. Absent : calf tenderness, cyanotic, pedal edema - Neurological Exam Neurological exam: Present: CN II-XII intact, oriented X3, no focal deficits. Absent: pronater drift, facial droop, speech deficit - Skin Skin exam: Present: dry, intact Internal Medicine: Result - Labs CBC & Chem 7: 09/08/16 17:46 09/08/16 17:46 Consult Discharge Plan - Plan Referrals: NO,PCP [Primary Care Provider] -
[2016-09-10] MEDS: *HR* FentaNYL (PF) 100 MCG/2 ML VIAL IVP PRN ×3 (16:14→16:19)
[2016-09-10 19:48] LABS: Appearance of Body Fluid Clear (Clear); Source of Body Fluid RUL BAL; Volume of Body Fluid 25 mL
[2016-09-10] MEDS: Levofloxacin 750 MG/150 ML 750 MG/150 ML BAG IVPB SCH (22:29)
[2016-09-11] MEDS: MethylPREDNISolone 40 MG/ML VIAL IVP SCH ×2 (01:13→08:10)
[2016-09-11] MEDS: Ipratropium/Albuterol Neb 3 ML IH SCH ×3 (04:40→15:59)
[2016-09-11] MEDS: *HR* Heparin 5,000 UNIT/ML VIAL SQ SCH (04:57)
[2016-09-11 07:26] VITALS: BP 154/91
[2016-09-11] MEDS: amLODIPine 5 MG TABLET PO SCH (08:11)
[2016-09-11] MEDS: Levofloxacin 750 MG/150 ML 750 MG/150 ML BAG IVPB SCH (08:11)
[2016-09-11] MEDS: Lactobacillus 1 EACH CAP.SPRINK PO SCH (08:11)
[2016-09-11] MEDS: Famotidine 20 MG TABLET PO SCH (08:11)
--- NOTE | 2016-09-11 08:38 | Pulmonology Progress Note ---
Date of Encounter: 09/11/16 Time of Encounter: 08:38 Assessment and Plan (1) Abnormal chest CT Status: Acute Patient has is evidence of fibrocavitary disease with likely acute/chronic infection. And COPD exacerbation underwent bronchoscopy with BAL and protected brushings along with cytological brushings preliminary results are nondiagnostic we will wait on final microbiological sensitivities. Would treat for 7 days for a commute acquired pneumonia with Levaquin Would consider discharging patient on at least short acting beta agonist and likely more appropriately long acting muscarinic agent such as Spiriva 18 g daily I will follow-up on the patient's cultures to see if there is any evidence of atypical/fungal infection He should also follow-up in the pulmonary clinic within a month with repeat CT scan at that time> (2) Acute exacerbation of chronic obstructive airways disease Status: Acute He can be transitioned to enteral steroids to complete a 5 Day burst (e.g prednisone 40mg daily) (3) DVT prophylaxis Status: Acute cont chemical DVT prophylaxis. Unlikely that RLE pain is VTE related given patient has been recieiving prophylaxis. Will defer to primary to for further evaluation including RLE u/s if felt indicated. (4) Necrotizing pneumonia Status: Acute I suspect that given physical exam findings this is not truly "necrotizing" PNA as much as chronic infection superimposed on chronic lung disease. Subjective Principal diagnosis: Pneumonia Interval history: Patient did well overnight no untoward effects post bronchoscopy says he is feeling fine breathing has improved markedly Objective PUL Vital signs: Last Vital Signs Temp 97.8 F 09/11/16 07:23 Pulse 96 09/11/16 07:23 Resp 17 09/11/16 07:23 BP 154/91 09/11/16 07:23 Pulse Ox 5 09/11/16 07:23 General appearance: no acute distress ENT: oropharynx moist Auscultation: bilateral: diminished breath sounds Cardiovascular: regular rate and rhythm Gastrointestinal: normoactive bowel sounds normal mental status, non-focal exam Results - Laboratory Findings CBC and BMP: 09/08/16 17:46 09/08/16 17:46 Abnormal lab findings: Abnormal lab results RBC 5.67 M/mcL (4.19-5.50) H 09/08/16 17:46 MPV 8.8 fL (9.4-12.4) L 09/08/16 17:46 Eosinophils # 0.9 K/mcL (0.0-0.6) H 09/08/16 17:46 - Microbiology Findings Microbiology Findings: Microbiology, Last 48 Hours 09/10/16 17:23 Respiratory Culture - Preliminary Right Upper Lobe Lung No growth. 09/10/16 17:23 Respiratory Culture - Preliminary Right Upper Lobe Lung No growth. 09/10/16 17:23 Gram Stain - Preliminary Right Upper Lobe Lung - Clinical Findings Intake & Output: Intake & Output 09/10/16 09/11/16 09/11/16 23:59 07:59 15:59 Intake Total 150 / 150 0 / 0 Output Total 0 / 0 Balance 150 / 150 0 / 0 Weight 81.1 kg Consult Discharge Plan - Plan Instructions: Prednisone (By mouth), Amlodipine (By mouth), Levofloxacin (By mouth), Tiotropium (By breathing), Chronic Obstructive Pulmonary Disease (DC), Chronic Hypertension (DC), Pneumonia (DC) Referrals: Terry Botello MD [Partnered Physician] - Marce Andres CNP [Advanced Practice Nurse] - 09/14/16 9:00 am (please bring your ID, insurance card, med list and if you can not make this appointment please give a 24 hour notice. ) Prescriptions: Amlodipine [Norvasc] 5 mg PO DAILY #30 tablet Levofloxacin 500 mg PO DAILY #2 tablet PredniSONE [Prednisone] 40 mg PO DAILY #2 tablet Tiotropium [Spiriva] 18 mcg IH 0700 #30 capsule
--- NOTE | 2016-09-11 16:25 | Discharge Summary ---
Date of Encounter: 09/11/16 Time of Encounter: 16:20 - Discharge Diagnosis (1) Acute exacerbation of chronic obstructive airways disease Priority: Primary Status: Acute (2) Hypertension Priority: Secondary Status: Acute Qualifiers: Hypertension type: essential hypertension Qualified Code(s): I10 - Essential (primary) hypertension (3) DVT prophylaxis Priority: Secondary Status: Acute - Discharge Medications Prescriptions: Amlodipine [Norvasc] 5 mg PO DAILY #30 tablet Levofloxacin 500 mg PO DAILY #2 tablet PredniSONE [Prednisone] 40 mg PO DAILY #2 tablet Tiotropium [Spiriva] 18 mcg IH 0700 #30 capsule Home Medications: Amlodipine [Norvasc] 5 mg PO DAILY #30 tablet 09/11/16 [Rx] Aspirin 325 mg PO DAILY 09/11/16 [History] Levofloxacin 500 mg PO DAILY #2 tablet 09/11/16 [Rx] Multivit,Th Iron,Other Min [Thera-M] 1 tab PO DAILY 09/11/16 [History] PredniSONE [Prednisone] 40 mg PO DAILY #2 tablet 09/11/16 [Rx] Tiotropium [Spiriva] 18 mcg IH 0700 #30 capsule 09/11/16 [Rx] Allergies/Adverse Reactions: Allergies Penicillins [PCN] Allergy (Verified 09/09/16 16:33) Hives Procedures/tests Complete & Pending: Procedures Performed prior 72 hours Category Date Time Status Venous Doppler [EV venous imaging LE RT] Routine Y 09/11/16 09:53 Ordered Date of admission: 09/08/16 21:38 Primary care physician: PCP NO Consults: 09/08/16 22:03 Consult to Pulmonology [CONS] Routine Consulting Provider: [facility] Reason for Consult: Ab niormal CT chest - ?mass versus necrotizing pneumonia Call Completed: No Discharging clinician: Javier Rubio - Patient Status Disposition: Home, Self-Care Condition: Fair Functional capacity at discharge: independent ambulation Overall status at discharge: patient is progressing back to baseline - Discharge Instructions Instructions: Chronic Obstructive Pulmonary Disease (DC), Chronic Hypertension (DC), Pneumonia (DC) Follow Up With: Marce Andres DEMOGRAPHIC ANALYST [Advanced Practice Nurse] - 09/14/16 9:00 am (please bring your ID, insurance card, med list and if you can not make this appointment please give a 24 hour notice. ) Terry Botello MD [Partnered Physician] - - Diet and Activity Activity: increase activity as tolerated Diet: low fat, low cholesterol, low salt diet Interval History: Mr. Hidalgo is a 71 year old male, who denies significant past medical history presents with 4-5 day history of acute worsening of shortness of breath. He noticed some shortness of breath for about 1-2 years, with acute worsening in the last 4-5 days. He reports shortness of breath at rest and on minimal exertion. He has cough with some white sputum. He denies chest pain, fever, chills, nausea, vomiting, palpitations, abdominal pain, dysuria, hematuria, bowel problems. He was evaluated in the emergency department and was treated with the bronchodilators. Chest x-ray was abnormal and hence a CT scan of the chest was done which reported Severe bilateral emphysematous changes with consolidative changes within the posterior aspect of the right upper lobe with central region of low attenuation. He was given clindamycin, vancomycin, Zosyn and levofloxacin in the ER. He is admitted to the hospitalist service for further management. Pt has 40 year h/o smoking. He denies occupation exposure to dust Hospital course: Patient was hospitalized. Pulmonology was consulted. Pulmonary recommended bronchoscopy. Patient does not have any necrotizing pneumonia/lung abscess/ piogenic pneumonia. Patient was treated as a exacerbation of COPD. Patient underwent bronchoscopy. Patient will follow with pulmonology for further treatment plan. Plan Patient is keen to go home today. Patient can go home today. Patient will follow-up with the primary care provider. Patient will follow-up with the pulmonology. At the time of discharge all QUESTIONS were answered - Time Spent with Patient Total time spent providing and/or coordinating discharge services: - Constitutional Vitals: Temp Pulse Resp BP Pulse Ox 97.8 F 96 14 154/91 99 09/11/16 07:23 09/11/16 07:23 09/11/16 15:59 09/11/16 07:23 09/11/16 15:59 General appearance: Present: A&O X 3, pleasant, no acute distress, answers questions appropriately - Head Head exam: Present: atraumatic, normocephalic - Eye Eye exam: Present: PERRL, conjuntiva pink, sclera anicteric Pupils: Present: PERRL - Neck Neck exam general surgery: Present: supple, trachea midline. Absent: lymphadenopathy - Respiratory Respiratory exam: Present: CTAB. Absent: accessory muscle use, rales, rhonchi, wheezes - Cardiovascular Cardiovascular exam: Present: RRR, +S1, +S2. Absent: diastolic murmur, gallop, rubs, systolic murmur - GI/Abdominal GI/Abdominal exam: Present: normal bowel sounds, soft, no peritoneal signs. Absent: distended, tenderness - Extremities Exam Extremities exam: Present: warm, radial pulses palpable and symetrical. Absent : calf tenderness, cyanotic, pedal edema - Neurological Exam Neurological exam: Present: CN II-XII intact, oriented X3, no focal deficits. Absent: pronater drift, facial droop, speech deficit - Skin Skin exam: Present: dry, intact
[2016-09-11 17:28] LABS: QuantiFERON Mitogen minus NIL >10.00 IU/mL; QuantiFERON-TB minus NIL 0.01 IU/mL (0.00-0.34)
[2016-09-12 14:28] LABS: QuantiFERON NIL 0.16 IU/mL; QuantiFERON-TB Gold In-Tube NEGATIVE (Negative)
--- NOTE | 2016-09-13 17:01 | Venous Imaging Report ---
LE Venous Duplex Patient Name:Isaac Hidalgo Order Number:[id number] Procedure Date:09/11/2016 Date:8Age:71 yrs Gender:Male Location:[facility] Room #: 2NE21 Front Desk Officer:Joy Fernandez RDCS Referring MD:Javier Rubio MD market sales manager:None Reading MD:Jin Garcia MD Primary Indications:Swelling of limb Secondary Indications: Risk Factors Yes/No Anticoagulants Yes Impressions: Right lower extremity: normal superficial and deep exam. Recommendations: Preliminary given to Sampson RAYMUNDO. Findings Venous Duplex Results: Right: Venous imaging of the lower extremity reveals full patency and normal vessel compressibility of the right distal iliac, right common femoral, right superficial femoral, right popliteal, right posterior tibial, right peroneal, right great saphenous and right lesser saphenous. Doppler signals in the evaluated veins were normal. Prior Study: No prior study available for comparison. Lower Extremity Venous Duplex Side Vein Compress Spontaneous Flow Augment Diameter (cm) Depth (cm) Right Distal Iliac Normal Yes Phasic Yes Right Common Femoral Normal Yes Phasic Yes Right Superficial Femoral Normal Yes Phasic Yes Right Popliteal Normal Yes Phasic Yes Right Posterior Tibial Normal Yes Phasic Yes Right Peroneal Normal Yes Phasic Yes Right Great Saphenous Normal Yes Phasic Yes Right Lesser Saphenous Normal Yes Phasic Yes Updated by Jin Garcia MD on 09/13/2016 4:57:57 PM electronically signed on 09/13/2016 4:58:10 PM with status of Final
[2016-09-14 07:48] LABS: Aspergillus Ab by CF <1:8 (<1:8); Blastomyces Ab by CF <1:8 (<1:8); Coccidioides Ab by CF <1:2 (<1:2)
== END 2016-09-11 17:06 | disposition home or self-care (01) | DRG 191 ==
LOC: EMEROO 17:02 → 2NENU 17:02
PROVIDERS: ADMIT Internal Medicine; ATTEND Internal Medicine

== ENCOUNTER 2017-04-10 19:21 | Observation (INO) ==
[2017-04-10 21:23] LABS: Basophils # 0.1 K/mcL (0.0-0.2); Basophils % 0.9 %; Eosinophils # 0.7 K/mcL (0.0-0.6); Eosinophils % 9.3 %; Hematocrit 45.4 % (37.5-50.1); Hemoglobin 15.4 g/dL (12.9-16.9); Immature Granulocytes % 0.3 % (0-4); Lymphocytes # 1.9 K/mcL (0.6-4.6); Lymphocytes % 24.6 %; Mean Corpuscular HGB Conc 33.9 g/dL (31.6-35.5); Mean Corpuscular Hemoglobin 31.4 pg (28.0-33.3); Mean Corpuscular Volume 92.5 fL (83.0-100.0); Mean Platelet Volume 8.4 fL (9.4-12.4); Monocytes # 0.6 K/mcL (0.0-1.3); Monocytes % 7.4 %; Neutrophils # 4.5 K/mcL (1.6-8.9); Platelet Count 297 K/mcL (140-400); Red Blood Count 4.91 M/mcL (4.19-5.50); Red Cell Distribution Width 13.8 % (11.5-14.5); Segmented Neutrophils % 57.5 %
[2017-04-10] MEDS ORDERED: Ipratropium/Albuterol Neb 3 ML IH ONE (21:39)
[2017-04-10] MEDS ORDERED: predniSONE 20 MG TABLET PO ONE (21:50)
--- NOTE | 2017-04-10 21:53 | Emergency Department Note ---
Disposition Clinical Impression: Acute exacerbation of chronic obstructive airways disease Disposition: Admitted As Inpatient Condition: Undetermined Time of Disposition: 23:35 SOB HPI - General Chief Complaint: ED Shortness of Breath/Dyspnea Stated Complaint: states yesi and has copd Time Seen by Provider: 04/10/17 21:15 Source: patient, family Mode of arrival: ambulatory Limitations: no limitations Nursing Notes Reviewed: Yes Vital Signs Reviewed: Yes - History of Present Illness 71-year-old male with history of COPD on no oxygen at home arrives [facility] emergency department with increasing need for albuterol inhaler and shortness of breath over the course the past 8 days with acutely worsening over the past 3. The patient states that he has had multiple workups in the past for what is being worried as a lung cancer. The patient denies any other complaints at this time including unilateral leg swelling, fevers, chills. The patient's significant other does know to have an upper respiratory infection he thinks he may be getting that. The patient denies any other complaints at this time is resting comfortably in the room with an O2 saturation of 97% on room air. No tachycardia or hypotension noted as well. Patient is resting comfortably in bed at this time. Pt Subjective Complaint: shortness of breath Onset (ago): day(s) (3) Context: recent illness Severity: mild Consistency/Duration: constant Improves with: nothing Worsens with: nothing Known history of: COPD Associated symptoms: Reports: wheezing Treatment prior to arrival: bronchodilator Cough present: No Sputum production: No - Related Data Home oxygen amount: none Home Medications Medication Instructions Recorded Confirmed Aspirin 325 mg PO DAILY 09/11/16 04/11/17 Multivit,Th Iron,Other Min 1 tab PO DAILY 09/11/16 04/11/17 [Thera-M] Hydrochlorothiazide [Microzide] 12.5 mg PO DAILY 04/11/17 04/11/17 Previous Rx's Medication Instructions Recorded predniSONE [Prednisone] 40 mg PO DAILY #2 tablet 09/11/16 Allergies Allergy/AdvReac Type Severity Reaction Status Date / Time Penicillins [PCN] Allergy Hives Verified 04/10/17 19:26 All systems ED: reviewed and negative except as stated. Constitutional: Denies: fever, chills, weakness ENT ED: Reports: congestion Cardiovascular: Denies: chest pain Respiratory: Reports: dyspnea, wheezes Gastrointestinal: Denies: abdominal pain Genitourinary: Denies: urgency, dysuria Musculoskeletal: Denies: back pain, neck pain, arthralgia, myalgia Integumentary: Denies: rash Neurological: Denies: headache, numbness Past Medical History - Past Medical History Attestation: Yes The following information was validated with the patient. Source: patient Medical history: Reports: COPD, hypertension Surgical history: Reports: no surgical history Psychiatric history: Reports: no psych history - Social History Smoking Status: Former smoker Smokeless Tobacco Status: No Alcohol use: Reports: rarely Drug use: Reports: none Physical Exam - General Limitations: no limitations General appearance: alert, in no apparent distress - Head Head exam: atraumatic, normocephalic, normal inspection - Eye Eye exam: Present: normal appearance, PERRL, EOMI - ENT ENT exam: normal exam, normal oropharynx, mucous membranes moist - Neck Neck exam: Present: normal inspection, full ROM, trachea midline - Chest Chest inspection: Present: normal inspection, symmetric chest wall rise - Respiratory Respiratory exam: Present: wheezes. Absent: respiratory distress, accessory muscle use, prolonged expiratory phase - Cardiovascular Cardiovascular exam: Present: regular rate, normal rhythm, normal heart sounds - Abdominal Exam Abdominal exam: Present: soft, Non-Tender. Absent: tenderness, distention, guarding, rebound, rigidity - Extremities Exam Extremities exam: Present: normal inspection, full ROM. Absent: tenderness, pedal edema Course Vital Signs Temperature 97.9 F 04/10/17 19:23 Pulse Rate 91 04/10/17 19:23 Respiratory Rate 18 04/10/17 19:23 Blood Pressure 166/85 04/10/17 19:23 O2 Sat by Pulse Oximetry 95 04/10/17 19:23 Temperature 98.6 F 04/11/17 02:45 Pulse Rate 64 04/11/17 02:45 Respiratory Rate 15 04/11/17 03:59 Blood Pressure 176/82 04/11/17 02:45 O2 Sat by Pulse Oximetry 92 04/11/17 03:59 Oxygen Delivery Oxygen Delivery Room Air Shortness of Breath/Dyspnea - MDM Narrative Medical decision making narrative: Patient's workup here in the emergency department to mistreats findings consistent with COPD exacerbation. After reanalysis the patient stated he was feeling much better but he ambulated in the room and became very short of breath. It was at that time we decided to perform a ambulation test here in the emergency department. On portable pulse oximetry the patient desaturated to 86% and was very short of breath and symptomatic. The patient ambulated back to the room and continued to remain very short of breath in the room. At this time I do not feel comfortable discharging the patient home as well as the patient in the patient's did not feel comfortable with this as well. We will admit the patient to the hospitalist for further aerosols and workup. The patient made aware and agrees to plan. Accepted by Dr. Key. - Lab Data Lab results reviewed: Yes I reviewed the patient's lab results. Result diagrams: 04/10/17 21:11 04/10/17 21:11 Lab Results 04/10/17 04/10/17 04/10/17 Range/Units 21:11 21:11 21:11 WBC 7.9 (4.3-11.1) K/mcL RBC 4.91 (4.19-5.50) M/mcL Hgb 15.4 (12.9-16.9) g/dL Hct 45.4 (37.5-50.1) % MCV 92.5 (83.0-100.0) fL MCH 31.4 (28.0-33.3) pg MCHC 33.9 (31.6-35.5) g/dL RDW 13.8 (11.5-14.5) % Plt Count 297 (140-400) K/mcL MPV 8.4 L (9.4-12.4) fL Immature Gran % 0.3 (0-4) % Seg Neutrophils % 57.5 % Lymphocytes % 24.6 % Monocytes % 7.4 % Eosinophils % 9.3 % Basophils % 0.9 % Neutrophils # 4.5 (1.6-8.9) K/mcL Lymphocytes # 1.9 (0.6-4.6) K/mcL Monocytes # 0.6 (0.0-1.3) K/mcL Eosinophils # 0.7 H (0.0-0.6) K/mcL Basophils # 0.1 (0.0-0.2) K/mcL Sodium 137 (136-145) mEq/L Potassium 3.7 (3.5-4.5) mEq/L Chloride 97 L (98-109) mEq/L Carbon Dioxide 28 (19-29) mEq/L BUN 17 (8-26) mg/dL Creatinine 1.38 H (0.72-1.25) mg/dL Est GFR ( Amer) > 60 (> 60) Est GFR (Non-Af Amer) 51 L (> 60) BUN/Creatinine Ratio 12 (6-26) Glucose 99 (70-99) mg/dL Calculated Osmolality 286 (280-300) Calcium 10.2 (8.6-10.8) mg/dL Troponin I 0.01 (0-0.03) ng/mL TSH 16.391 H (0.350-4.840) mcIU/mL - Radiology Data Radiology results reviewed: Yes I reviewed the patient's radiology results. Attestation Statement - Attestation Attestation: Dr. Campos note: Patient was seen in conjunction with resident Dr. Atkinson; please see his charting for complete documentation. I spent [id number] time with the patient and agree with the patient's treatment and disposition. Patient has symptomatic improvement in the ER but is significantly hypoxic and symptomatic on minimal exertion. No chest pain no fever no vomiting. Imaging is unremarkable. He will be admitted for hypoxia ; blood work and imaging results have been reviewed
[2017-04-10 22:27] LABS: BUN/Creatinine Ratio 12 (6-26); Blood Urea Nitrogen 17 mg/dL (8-26); Calcium 10.2 mg/dL (8.6-10.8); Carbon Dioxide 28 mEq/L (19-29); Chloride 97 mEq/L (98-109); Glucose 99 mg/dL (70-99); Osmolality,Calculated 286 (280-300); Potassium 3.7 mEq/L (3.5-4.5); Sodium 137 mEq/L (136-145); eGFR For African Americans > 60 (> 60); eGFR For Non-African Americans 51 (> 60)
[2017-04-10 23:22] LABS: Thyroid Stimulating Hormone 16.391 mcIU/mL (0.350-4.840)
[2017-04-11] MEDS ORDERED: Naloxone 0.4 MG/ML INJ IVP PRN (03:40)
[2017-04-11] MEDS ORDERED: Acetaminophen 325 MG TABLET PO PRN (03:40)
[2017-04-11] MEDS ORDERED: Albuterol 2.5 MG/3 ML NEBULIZER IH PRN (03:40)
[2017-04-11] MEDS: Ipratropium/Albuterol Neb 3 ML IH SCH ×6 (03:59→23:56)
--- NOTE | 2017-04-11 04:08 | Internal Med History&Physical ---
Date of Encounter: 04/11/17 Time of Encounter: 03:25 Assessment and Plan (1) Acute exacerbation of chronic obstructive airways disease Current visit: Yes Status: Acute 1. Will start patient on IV steroids, scheduled and PRN aerosols. 2. Will start on empiric antibiotics to cover both COPD and sinusitis concerns. 3. Oxygen as needed for support. (2) Sinusitis Current visit: Yes Status: Acute 1. Levaquin as above. 2. May need decongestants. Qualifiers: Sinusitis location: unspecified location Chronicity: subacute Qualified Code(s): J01.90 - Acute sinusitis, unspecified (3) DVT prophylaxis Current visit: No Status: Acute 1. Heparin SQ. Internal Medicine - H&P: HPI Chief complaint: SOB; cough Admitted From: Emergency Dept Plans for Post Hospital Care: Home History of present illness: Mr. Hidalgo is a 71 year old male who presented to the ER with 3 day history of profound coughing, wheezing, worsening shortness of breath, weakness, and appetite loss. Patient has steroid-dependent COPD and was feeling well until about 3 days ago. Because of his persistence and worsening of symptoms, he came to the ER for evaluation. He denies any fevers, vomiting, or diarrhea. He denies any chest pain. He felt better in the ER after some aerosols. However, he was unable to tolerate ambulating without shortness of breath and hypoxemia. He was therefore admitted to the hospitalist service. Presently, he has minimal shortness of breath, but he is audibly wheezing and coughing throughout our conversation. He has had ill contact with his sister lately who has URI symptoms. Additionally, patient has had sinusitis symptoms for the last several weeks which have been resistant to OTC medications. Past Med Surg Social Fam HX - Past Medical History Attestation: Yes The following information was validated with the patient. Source: patient, old records reviewed Medical history: COPD, hypertension Psychiatric history: no psych history - Past Surgical History Surgical History: no surgical history - Social History Smoking Status: Former smoker Smokeless Tobacco Status: No Alcohol use: rarely Drug use: none Current living situation: Home - Independent Activity Level: Independent ambulation Recent Out of Country Travel Within the Last 8 Weeks: No - Family History Father Living Status: Age at : 68 Cause of : CHF Hx Family Cardiac Disorders: Yes Hx Family Respiratory Disorders: Yes Hx Family Cancer: No Hx Family GI Disorders: No Hx Family Endocrine Disorder: Yes (DM) Hx Family Neuromuscular Disorders: No Mother Living Status: Age at : 70 Hx Family Cardiac Disorders: Yes (HTN) Hx Family Endocrine Disorder: Yes (DM) Internal Medicine - H&P: Meds Aspirin 325 mg PO DAILY 09/11/16 [History] Multivit,Th Iron,Other Min [Thera-M] 1 tab PO DAILY 09/11/16 [History] predniSONE [Prednisone] 40 mg PO DAILY #2 tablet 09/11/16 [Rx] Hydrochlorothiazide [Microzide] 12.5 mg PO DAILY 04/11/17 [History] 3 Allergy/AdvReac Type Severity Reaction Status Date / Time Penicillins [PCN] Allergy Hives Verified 04/10/17 19:26 - Constitutional Constitutional: no chills, no fever(s), no night sweats - EENT Eyes: no blurry vision, no change in vision Ears: no ear pain, no tinnitus Nose, mouth and throat: nasal congestion, nasal discharge, post-nasal drip, sinus pain, sinus pressure, no sore throat - Cardiovascular Cardiovascular ROS IM: no chest pain, no diaphoresis, no edema, no palpitations , no paroxysmal nocturnal dyspnea - Respiratory Respiratory: cough, dyspnea, wheezing, chest congestion, excessive phlegm production, change in phlegm color, no hemoptysis, no pain with cough - Gastrointestinal Gastrointestinal: no abdominal pain, no diarrhea, no hematemesis, no hematochezia, no melena, no vomiting - Genitourinary Genitourinary ROS male: no dysuria, no flank pain, no hematuria - Musculoskeletal Musculoskeletal ROS IM: no arthralgias, no back pain - Integumentary Integumentary IM: no rash, no jaundice - Neurological Neurological ROS: no dizziness, no focal weakness, no frequent falls, no headache(s) - Psychiatric Psychiatric: no anxiety, no depression - Endocrine Endocrine IM: no polydipsia, no polyuria - Hematologic/Lymphatic Hematologic/Lymphatic: no easy bruising, no lymphadenopathy - Allergic/Immunologic Allergic/Immunologic: wheezing, no GI upset with certain foods - Constitutional Vitals: Temp Pulse Resp BP Pulse Ox 98.6 F 64 16 176/82 90 04/11/17 02:45 04/11/17 02:45 04/11/17 02:45 04/11/17 02:45 04/11/17 02:45 General appearance: Present: cooperative, A&O X 3, pleasant, no acute distress, answers questions appropriately - Head Head exam: Present: atraumatic - Eye Eye exam: Present: EOMI, normal appearance, PERRL. Absent: scleral icterus Pupils: Present: normal accommodation - ENT ENT exam: Present: mucous membranes dry, normal exam - Neck Neck exam general surgery: Present: full ROM, supple. Absent: tenderness - Respiratory Respiratory exam: Present: accessory muscle use, decreased breath sounds, prolonged expiratory phase (markedy prolonged), respiratory distress (mild), rhonchi, wheezes. Absent: chest wall tenderness, rales - Cardiovascular Cardiovascular exam: Present: RRR, +S1, +S2. Absent: diastolic murmur, systolic murmur - GI/Abdominal GI/Abdominal exam: Present: normal bowel sounds, soft. Absent: hepatomegaly, mass, splenomegaly - Extremities Exam Extremities exam: Present: full ROM, warm, radial pulses palpable and symmetrical. Absent: cyanotic - Back Exam Back exam: Absent: CVA tenderness (L), CVA tenderness (R) - Neurological Exam Neurological exam: Present: alert, CN II-XII intact, oriented X3, no focal deficits - Psychiatric Psychiatric exam: Present: normal affect, normal mood - Skin Skin exam: Present: dry, warm. Absent: rash Internal Med - H&P Results - Labs CBC & Chem 7: 04/10/17 21:11 04/10/17 21:11 - Diagnostic Studies Chest x-ray Status: image reviewed by me (negative)
[2017-04-11] MEDS: Levofloxacin 500 MG/100 ML 500 MG/100 ML BAG IVPB SCH (05:12)
[2017-04-11] MEDS: *HR* Heparin 5,000 UNIT/ML VIAL SQ SCH ×2 (05:12→17:09)
[2017-04-11 06:22] LABS: Alanine Aminotransferase 22 Units/L (0-55); Albumin 3.9 g/dL (3.5-5.0); Albumin/Globulin Ratio 0.7 (1.1-2.2); Alkaline Phosphatase 80 Units/L (38-126); Aspartate Amino Transferase 34 Units/L (5-34); BUN/Creatinine Ratio 11 (6-26); Bilirubin,Total 0.4 mg/dL (0.2-1.2); Blood Urea Nitrogen 15 mg/dL (8-26); Calcium 10.1 mg/dL (8.6-10.8); Carbon Dioxide 28 mEq/L (19-29); Chloride 95 mEq/L (98-109); Globulin 5.8 g/dL (2.4-3.5); Glucose 191 mg/dL (70-99); Magnesium 2.1 mg/dL (1.6-2.6); Osmolality,Calculated 288 (280-300); Potassium 3.8 mEq/L (3.5-4.5); Sodium 136 mEq/L (136-145); Total Protein 9.7 g/dL (6.0-8.3); eGFR For African Americans > 60 (> 60); eGFR For Non-African Americans 50 (> 60)
--- NOTE | 2017-04-11 08:17 | Internal Med Progress Note ---
Date of Encounter: 04/11/17 Time of Encounter: 08:14 - Assessment and plan (1) Acute exacerbation of chronic obstructive airways disease Current Visit: No Status: Acute Assessment and plan: gary hx COPD, former smoker. Presented with worsening shortness of breath and wheezing. CXR with extensive scarring, no definite infiltrate seen. Symptoms significantly improved with IV steroids and breathing treatments. Continue IV Levaquin, steroids and breathing treatments. (2) Hypothyroidism Current Visit: Yes Status: Acute Assessment and plan: new diagnosis. TSH 16, T4 0.4. Start levothyroxine. Will need repeat TSH in 6 -8 weeks with PCP. Qualifiers: Hypothyroidism type: acquired Qualified Code(s): E03.9 - Hypothyroidism, unspecified (3) CLYDE (acute kidney injury) Current Visit: Yes Status: Acute Assessment and plan: Cr 1.4; baseline normal. Likely prerenal with poor PO intake prior to admission. IV fluids, avoid nephrotoxic agents as possible. Monitor repeat renal function. (4) Hypertension Current Visit: No Status: Acute Assessment and plan: Per history. BP elevated, holding home diuretic with CLYDE. Start amlodipine. Qualifiers: Hypertension type: essential hypertension Qualified Code(s): I10 - Essential (primary) hypertension (5) DVT prophylaxis Current Visit: No Status: Acute Assessment and plan: Heparin - Subjective Interval history: Seen and examined at bedside. Patient is new to me. Information obtained from chart review and patient report. Patient says he feels much better from when he first presented. Shortness of breath with activity/exertion but overall significantly improved. No previous history of hypothyroidism or kidney disease. Denies CP - Constitutional Vitals: Temp Pulse Resp BP Pulse Ox 98.3 F 65 17 164/74 98 04/11/17 07:26 04/11/17 07:26 04/11/17 07:26 04/11/17 07:26 04/11/17 07:26 General appearance: Present: cooperative, A&O X 3, pleasant, no acute distress, answers questions appropriately - Head Head exam: Present: atraumatic, normocephalic - Eye Eye exam: Present: PERRL, conjuntiva pink, sclera anicteric Pupils: Present: PERRL - Neck Neck exam general surgery: Present: supple, trachea midline. Absent: lymphadenopathy - Respiratory Respiratory exam: Present: CTAB. Absent: accessory muscle use, rales, rhonchi, wheezes - Cardiovascular Cardiovascular exam: Present: RRR, +S1, +S2. Absent: diastolic murmur, gallop, rubs, systolic murmur - GI/Abdominal GI/Abdominal exam: Present: distended, firm, normal bowel sounds, soft, no peritoneal signs. Absent: tenderness - Extremities Exam Extremities exam: Present: warm, radial pulses palpable and symmetrical. Absent : calf tenderness, cyanotic, pedal edema - Neurological Exam Neurological exam: Present: CN II-XII intact, oriented X3, no focal deficits. Absent: pronater drift, facial droop, speech deficit - Skin Skin exam: Present: dry, intact Internal Medicine: Result - Labs CBC & Chem 7: 04/10/17 21:11 04/11/17 05:16 Labs: BMP 04/11/17 05:16 Sodium 136 Potassium 3.8 Chloride 95 L Carbon Dioxide 28 BUN 15 Creatinine 1.41 H Glucose 191 H Calcium 10.1 Liver Function 04/11/17 Range/Units 05:16 Total Bilirubin 0.4 (0.2-1.2) mg/dL AST 34 (5-34) Units/L ALT 22 (0-55) Units/L Alkaline Phosphatase 80 (38-126) Units/L Albumin 3.9 (3.5-5.0) g/dL Consult Discharge Plan - Plan Referrals: Marce Andres, HERMANN [Primary Care Provider] -
[2017-04-11] MEDS: 0.9 % Sodium Chloride 1,000 ML IVC SCH ×2 (09:46→23:10)
[2017-04-11] MEDS: Aspirin 325 MG TABLET PO SCH (09:47)
[2017-04-11] MEDS: amLODIPine 5 MG TABLET PO SCH (09:47)
[2017-04-11] MEDS: methylPREDNISolone 125 MG/2 ML VIAL IVP SCH ×3 (09:47→23:10)
[2017-04-12] MEDS: Ipratropium/Albuterol Neb 3 ML IH SCH ×6 (03:39→23:09)
[2017-04-12] MEDS: Levofloxacin 500 MG/100 ML 500 MG/100 ML BAG IVPB SCH (05:09)
[2017-04-12] MEDS: *HR* Heparin 5,000 UNIT/ML VIAL SQ SCH ×2 (05:09→18:17)
[2017-04-12 05:31] LABS: Hematocrit 43.5 % (37.5-50.1); Hemoglobin 14.8 g/dL (12.9-16.9); Mean Corpuscular Hemoglobin 30.7 pg (28.0-33.3); Mean Corpuscular Volume 90.2 fL (83.0-100.0); Mean Platelet Volume 8.7 fL (9.4-12.4); Platelet Count 320 K/mcL (140-400); Red Blood Count 4.82 M/mcL (4.19-5.50); Red Cell Distribution Width 13.7 % (11.5-14.5)
[2017-04-12 06:13] LABS: Calcium 9.6 mg/dL (8.6-10.8)
[2017-04-12 06:14] LABS: Potassium 4.6 mEq/L (3.5-4.5)
[2017-04-12] MEDS: methylPREDNISolone 125 MG/2 ML VIAL IVP SCH (08:15)
[2017-04-12] MEDS: Aspirin 325 MG TABLET PO SCH (08:16)
[2017-04-12] MEDS: amLODIPine 5 MG TABLET PO SCH (08:16)
[2017-04-12] MEDS ORDERED: methylPREDNISolone 125 MG/2 ML VIAL IVP SCH (10:03)
--- NOTE | 2017-04-12 10:23 | Internal Med Progress Note ---
Date of Encounter: 04/12/17 Time of Encounter: 10:21 - Assessment and plan (1) Acute exacerbation of chronic obstructive airways disease Current Visit: Yes Status: Acute Assessment and plan: Improved respiratory status. We will change steroids to oral prednisone as patient complains of agitation. Continue bronchodilators and supplemental oxygen as needed. (2) Hypertension Current Visit: Yes Status: Chronic Qualifiers: Hypertension type: essential hypertension Qualified Code(s): I10 - Essential (primary) hypertension (3) CLYDE (acute kidney injury) Current Visit: Yes Status: Acute Assessment and plan: Patient has no history of chronic kidney disease, serum creatinine noted to be increasing, 1.43 today. We will check urine dipstick, urine protein creatinine ratio and urine sodium. Continue IV hydration for now. Nonoliguric. (4) Hypothyroidism Current Visit: Yes Status: Acute Assessment and plan: Newly diagnosed during this admission. TSH was noted to be 16.5, free T4 0.5. Started on by mouth levothyroxin. Qualifiers: Hypothyroidism type: acquired Qualified Code(s): E03.9 - Hypothyroidism, unspecified - Subjective Interval history: Reports feeling well; improved shortness of breath; no chest pain, palpitations ; no urinary complaints; no fever/chills; has some leg swelling; - Constitutional Vitals: Temp Pulse Resp BP Pulse Ox 97.8 F 81 18 128/74 95 04/12/17 07:21 04/12/17 07:21 04/12/17 07:52 04/12/17 07:21 04/12/17 07:52 General appearance: Present: cooperative, A&O X 3, pleasant, answers questions appropriately - Respiratory Respiratory exam: Present: decreased breath sounds (improving air entry B/L), CTAB. Absent: accessory muscle use, rales, rhonchi, wheezes - Cardiovascular Cardiovascular exam: Present: RRR, +S1, +S2, tachycardia. Absent: diastolic murmur, gallop, rubs, systolic murmur - GI/Abdominal GI/Abdominal exam: Present: normal bowel sounds, soft, no peritoneal signs. Absent: distended, tenderness - Extremities Exam Extremities exam: Present: full ROM, pedal edema, warm, radial pulses palpable and symmetrical. Absent: calf tenderness, cyanotic - Neurological Exam Neurological exam: Present: CN II-XII intact, oriented X3, no focal deficits. Absent: pronater drift, facial droop, speech deficit Internal Medicine: Result - Labs CBC & Chem 7: 04/12/17 04:51 04/12/17 04:51 Labs: Short CBC 04/12/17 Range/Units 04:51 WBC 13.2 H D (4.3-11.1) K/mcL Hgb 14.8 (12.9-16.9) g/dL Hct 43.5 (37.5-50.1) % Plt Count 320 (140-400) K/mcL [facility] 04/12/17 04:51 Sodium 135 L Potassium 4.6 H Chloride 100 Carbon Dioxide 22 BUN 25 D Creatinine 1.43 H Glucose 142 H Calcium 9.6 Consult Discharge Plan - Plan Referrals: Marce Andres, HERMANN [Primary Care Provider] -
[2017-04-12 11:48] LABS: Bilirubin,Urine Negative (Negative); Blood,Urine Negative (Negative); Clarity,Urine Clear (Clear); Color,Urine Yellow (Yellow); Glucose,Urine (UA) Normal (Normal); Ketones,Urine Negative (Negative); Leukocyte Esterase,Urine Negative (Negative); Nitrite,Urine Negative (Negative); Protein,Urine Negative (Neg-Trace); Specific Gravity,Urine 1.019 (1.010-1.025); Urobilinogen,Urine Normal (Normal)
[2017-04-12 11:56] LABS: Creatinine,Urine 106 mg/dL; Protein/Creatinine Ratio,Urine 0.09 mg/mg (0-0.20); Sodium, Urine < 20.0 mEq/L
[2017-04-12] MEDS: 0.9 % Sodium Chloride 1,000 ML IVC SCH (15:44)
--- NOTE | 2017-04-12 16:30 | Electrocardiograph Report ---
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
[2017-04-13] MEDS: Ipratropium/Albuterol Neb 3 ML IH SCH ×6 (03:37→23:02)
[2017-04-13] MEDS: Levofloxacin 500 MG/100 ML 500 MG/100 ML BAG IVPB SCH (04:37)
[2017-04-13] MEDS: 0.9 % Sodium Chloride 1,000 ML IVC SCH ×2 (04:37→17:46)
[2017-04-13 05:54] LABS: Hematocrit 41.6 % (37.5-50.1); Mean Corpuscular HGB Conc 33.7 g/dL (31.6-35.5); Mean Corpuscular Hemoglobin 31.3 pg (28.0-33.3); Mean Corpuscular Volume 92.9 fL (83.0-100.0); Mean Platelet Volume 8.8 fL (9.4-12.4); Platelet Count 327 K/mcL (140-400); Red Blood Count 4.48 M/mcL (4.19-5.50)
[2017-04-13 06:00] LABS: Calcium 9.1 mg/dL (8.6-10.8); Potassium 4.2 mEq/L (3.5-4.5)
[2017-04-13] MEDS: *HR* Heparin 5,000 UNIT/ML VIAL SQ SCH ×2 (06:18→17:46)
[2017-04-13] MEDS: Aspirin 325 MG TABLET PO SCH (07:42)
[2017-04-13] MEDS: amLODIPine 5 MG TABLET PO SCH (07:43)
[2017-04-13] MEDS ORDERED: predniSONE 20 MG TABLET PO SCH (09:00)
--- NOTE | 2017-04-13 11:52 | Internal Med Progress Note ---
Date of Encounter: 04/13/17 Time of Encounter: 11:49 - Assessment and plan (1) SOB (shortness of breath) Current Visit: No Status: Acute Assessment and plan: due to copd clinically not in chf (2) Acute exacerbation of chronic obstructive airways disease Current Visit: Yes Status: Acute Assessment and plan: Patient clinically improved but still short of breath with minimal exertion and exams to have bilateral wheezing with resume Solu-Medrol IV and continue DuoNeb treatment and antibiotic Levaquin (3) Hypertension Current Visit: Yes Status: Chronic Assessment and plan: Chronic and well controlled Qualifiers: Hypertension type: essential hypertension Qualified Code(s): I10 - Essential (primary) hypertension (4) Sinusitis Current Visit: Yes Status: Acute Assessment and plan: Continue on Levaquin IV Qualifiers: Sinusitis location: unspecified location Chronicity: subacute Qualified Code(s): J01.90 - Acute sinusitis, unspecified (5) CLYDE (acute kidney injury) Current Visit: Yes Status: Acute Assessment and plan: Will continue IV hydration and increased to 100 mL per hour (6) Hypothyroidism Current Visit: Yes Status: Acute Assessment and plan: Patient was started on Synthroid supplement Qualifiers: Hypothyroidism type: acquired Qualified Code(s): E03.9 - Hypothyroidism, unspecified - Subjective Interval history: Patient admitted with COPD exacerbation due to bronchitis. Today says still short of breath with minimal exertion exams he had bilateral expiratory wheezing denies any chest pain - Constitutional Vitals: Temp Pulse Resp BP Pulse Ox 97.1 F L 84 16 114/63 100 04/13/17 11:41 04/13/17 11:41 04/13/17 11:41 04/13/17 11:41 04/13/17 11:41 General appearance: Present: cooperative, A&O X 3, pleasant, answers questions appropriately - Eye Eye exam: Present: PERRL, conjuntiva pink, sclera anicteric Pupils: Present: PERRL - Neck Neck exam general surgery: Present: supple, trachea midline. Absent: lymphadenopathy - Respiratory Respiratory exam: Present: rhonchi, wheezes - Cardiovascular Cardiovascular exam: Present: RRR, +S1, +S2. Absent: diastolic murmur, gallop, rubs, systolic murmur - GI/Abdominal GI/Abdominal exam: Present: normal bowel sounds, soft, no peritoneal signs. Absent: distended, tenderness - Extremities Exam Extremities exam: Present: warm, radial pulses palpable and symmetrical. Absent : calf tenderness, cyanotic, pedal edema Internal Medicine: Result - Labs CBC & Chem 7: 04/13/17 04:50 04/13/17 04:50 Labs: Short CBC 04/13/17 Range/Units 04:50 WBC 15.2 H (4.3-11.1) K/mcL Hgb 14.0 (12.9-16.9) g/dL Hct 41.6 (37.5-50.1) % Plt Count 327 (140-400) K/mcL BMP 04/13/17 04:50 Sodium 137 Potassium 4.2 Chloride 104 Carbon Dioxide 22 BUN 36 H D Creatinine 1.42 H Glucose 119 H Calcium 9.1 Urine 04/12/17 Range/Units 11:30 Urine Color Yellow (Yellow) Urine Clarity Clear (Clear) Urine pH 6.0 (5.0-8.0) pH Units Ur Specific [place] 1.019 (1.010-1.025) Urine Protein Negative (Neg-Trace) mg/dL Urine Glucose (UA) Normal (Normal) mg/dL Consult Discharge Plan - Plan Referrals: Marce Andres, HERMANN [Primary Care Provider] -
[2017-04-13] MEDS: MethylPREDNISolone 40 MG/ML VIAL IVP SCH (17:46)
[2017-04-14] MEDS: MethylPREDNISolone 40 MG/ML VIAL IVP SCH ×3 (00:11→19:47)
[2017-04-14] MEDS: Ipratropium/Albuterol Neb 3 ML IH SCH ×6 (03:37→22:56)
[2017-04-14] MEDS: 0.9 % Sodium Chloride 1,000 ML IVC SCH (03:53)
[2017-04-14] MEDS: Levofloxacin 500 MG/100 ML 500 MG/100 ML BAG IVPB SCH (03:56)
[2017-04-14] MEDS: *HR* Heparin 5,000 UNIT/ML VIAL SQ SCH ×2 (05:46→19:47)
[2017-04-14] MEDS: amLODIPine 5 MG TABLET PO SCH (07:36)
[2017-04-14] MEDS: Aspirin 325 MG TABLET PO SCH (07:36)
[2017-04-14 08:06] LABS: BUN/Creatinine Ratio 30 (6-26); Blood Urea Nitrogen 33 mg/dL (8-26); Calcium 8.3 mg/dL (8.6-10.8); Carbon Dioxide 25 mEq/L (19-29); Chloride 109 mEq/L (98-109); Glucose 136 mg/dL (70-99); Osmolality,Calculated 301 (280-300); Potassium 4.1 mEq/L (3.5-4.5); Sodium 141 mEq/L (136-145); eGFR For African Americans > 60 (> 60); eGFR For Non-African Americans > 60 (> 60)
[2017-04-14 08:41] LABS: Hematocrit 41.3 % (37.5-50.1); Hemoglobin 13.6 g/dL (12.9-16.9); Mean Corpuscular HGB Conc 32.9 g/dL (31.6-35.5); Mean Corpuscular Hemoglobin 31.1 pg (28.0-33.3); Mean Corpuscular Volume 94.3 fL (83.0-100.0); Mean Platelet Volume 8.9 fL (9.4-12.4); Platelet Count 297 K/mcL (140-400); Red Blood Count 4.38 M/mcL (4.19-5.50); Red Cell Distribution Width 14.2 % (11.5-14.5)
--- NOTE | 2017-04-14 13:27 | Internal Med Progress Note ---
Date of Encounter: 04/14/17 Time of Encounter: 13:24 - Assessment and plan (1) Acute exacerbation of chronic obstructive airways disease Current Visit: Yes Status: Acute Assessment and plan: Initially improved, currently complains of persistent exertional dyspnea. Has been restarted on IV steroids. Improving leukocytosis. Continue bronchodilators and supplemental oxygen. Home oxygen evaluation prior to discharge. 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 Will consult pulmonology for further management. (2) Hypertension Current Visit: Yes Status: Chronic Assessment and plan: Blood pressure noted to be well controlled. Continue to hold DAMIAN inhibitor/ diuretic. Qualifiers: Hypertension type: essential hypertension Qualified Code(s): I10 - Essential (primary) hypertension (3) CLYDE (acute kidney injury) Current Visit: Yes Status: Acute Assessment and plan: Serum creatinine noted to be improving. We will hold IV hydration to avoid volume overload. Continue to hold DAMIAN inhibitor/diuretics. (4) Hypothyroidism Current Visit: Yes Status: Acute Assessment and plan: Continue levothyroxine. Qualifiers: Hypothyroidism type: acquired Qualified Code(s): E03.9 - Hypothyroidism, unspecified - Subjective Interval history: Reports shortness of breath on walking a few steps and after speaking long sentences; tolerates diet, no distress at rest; not on O2 at rest; no chest pain , fever/chills, cough; - Constitutional Vitals: Temp Pulse Resp BP Pulse Ox 97.4 F L 77 16 130/66 98 04/14/17 11:11 04/14/17 11:11 04/14/17 11:20 04/14/17 11:11 04/14/17 11:20 General appearance: Present: cooperative, A&O X 3, pleasant, answers questions appropriately - Respiratory Respiratory exam: Present: decreased breath sounds (decreased air entry B/L). Absent: accessory muscle use, rales, rhonchi, wheezes - Cardiovascular Cardiovascular exam: Present: RRR, +S1, +S2. Absent: diastolic murmur, gallop, rubs, systolic murmur - GI/Abdominal GI/Abdominal exam: Present: normal bowel sounds, soft, no peritoneal signs. Absent: distended, tenderness - Extremities Exam Extremities exam: Present: full ROM, pedal edema, warm, radial pulses palpable and symmetrical. Absent: calf tenderness, cyanotic Internal Medicine: Result - Labs CBC & Chem 7: 04/14/17 06:33 04/14/17 06:33 Labs: Short CBC 04/14/17 Range/Units 06:33 WBC 9.5 (4.3-11.1) K/mcL Hgb 13.6 (12.9-16.9) g/dL Hct 41.3 (37.5-50.1) % Plt Count 297 (140-400) K/mcL [facility] 04/14/17 06:33 Sodium 141 Potassium 4.1 Chloride 109 Carbon Dioxide 25 BUN 33 H Creatinine 1.11 Glucose 136 H Calcium 8.3 L Consult Discharge Plan - Plan Referrals: Marce Andres, LAND MANAGEMENT SUPERVISOR [Primary Care Provider] -
[2017-04-15] MEDS: Ipratropium/Albuterol Neb 3 ML IH SCH ×4 (03:50→16:23)
[2017-04-15] MEDS: MethylPREDNISolone 40 MG/ML VIAL IVP SCH ×2 (04:04→11:18)
[2017-04-15] MEDS: Levofloxacin 500 MG/100 ML 500 MG/100 ML BAG IVPB SCH (04:04)
[2017-04-15] MEDS: *HR* Heparin 5,000 UNIT/ML VIAL SQ SCH ×2 (05:35→16:27)
[2017-04-15 05:41] LABS: Basophils % 0.4 %; Hematocrit 41.2 % (37.5-50.1); Hematocrit 41.5 % (37.5-50.1); Hemoglobin 13.8 g/dL (12.9-16.9); Lymphocytes # 0.7 K/mcL (0.6-4.6); Lymphocytes % 6.5 %; Mean Corpuscular HGB Conc 33.3 g/dL (31.6-35.5); Mean Corpuscular Hemoglobin 31.2 pg (28.0-33.3); Mean Corpuscular Hemoglobin 31.7 pg (28.0-33.3); Mean Corpuscular Volume 93.4 fL (83.0-100.0); Mean Corpuscular Volume 93.7 fL (83.0-100.0); Mean Platelet Volume 8.5 fL (9.4-12.4); Mean Platelet Volume 8.6 fL (9.4-12.4); Monocytes # 0.5 K/mcL (0.0-1.3); Monocytes % 4.4 %; Neutrophils # 9.3 K/mcL (1.6-8.9); Platelet Count 305 K/mcL (140-400); Platelet Count 317 K/mcL (140-400); Red Blood Count 4.41 M/mcL (4.19-5.50); Red Blood Count 4.43 M/mcL (4.19-5.50); Red Cell Distribution Width 14.3 % (11.5-14.5); Red Cell Distribution Width 14.5 % (11.5-14.5); Segmented Neutrophils % 86.7 %
[2017-04-15 05:55] LABS: BUN/Creatinine Ratio 27 (6-26); Blood Urea Nitrogen 33 mg/dL (8-26); Calcium 8.6 mg/dL (8.6-10.8); Carbon Dioxide 23 mEq/L (19-29); Chloride 107 mEq/L (98-109); Glucose 139 mg/dL (70-99); Osmolality,Calculated 302 (280-300); Potassium 4.2 mEq/L (3.5-4.5); Sodium 141 mEq/L (136-145); eGFR For African Americans > 60 (> 60); eGFR For Non-African Americans 59 (> 60)
--- NOTE | 2017-04-15 06:36 | Pulmonology Consult Note ---
Date of Encounter: 04/15/17 Time of Encounter: 06:36 Assessment and Plan (1) Acute exacerbation of chronic obstructive airways disease Current Visit: Yes Status: Acute This is a 71-year-old pleasan gentleman and former smoker with evidence of advanced COPD presented with acute exacerbation of COPD he also has known abnormalities on the CT scan including chronic consolidation with central necrotizing features. Also has prominent mediastinal lymph nodes. From standpoint of COPD appears his had acute exacerbation which appears to be resolving given that this is his second COPD exacerbation last year puts him at high risk features he will need close outpatient pulmonary follow-up for this in addition to further optimization of his inhaler regimen while inpatient. His tobacco abuse is in remission He has known chronic changes on the CT scan which are concerning for malignancy versus chronic infectious/scarring process he has had 2 [address] scans and PET/CT for evaluation of this. He underwent bronchoscopy with transbronchial brushings BAL which was unremarkable for malignancy or infection at that time he was offered repeat bronchoscopy with endobronchial ultrasound which he declined and has been followed radiographically since I still feel that there is a strong possibility this represents malignancy despite the chronic stability. He will need further outpatient pulmonary follow-up for this and could likely undergo endobronchial ultrasound and navigational bronchoscopy for biopsy Although he presented with mild acute kidney injury on admission it appears that he is volume overloaded currently and may benefit from gentle diuresis and possible further investigation of heart failure with preserved ejection fraction given the close relationship with COPD Recs: - Agree with continuation of respiratory fluoroquinolone to complete 7 day course -Transition to oral prednisone 40 mg with taper over 2 weeks -Continue long acting muscarinic antagonist and LANDY (PRN) at discharge -Start Symbicort 160/4.52 puffs twice a day patient should be instructed on its use with respiratory therapy and should be given this inhaler at discharge -Pulmonary rehabilitation as outpatient given recurrent exacerbations -Walking pulse oximetry prior to discharge for evaluation of home-going oxygen. Aim to keep his oxygen saturation around 89-92%. -Pulmonary follow-up in 1-2 weeks for ongoing discussion of chronic CT changes and possible bronchoscopy Thank you for allowing us to participate in the care of this patient please call with any questions (2) Leg edema Current Visit: Yes Status: Acute (3) Lung nodule Current Visit: Yes Status: Acute (4) Abnormal chest CT Current Visit: No Status: Acute History of Present Illness Consult date: 04/15/17 Requesting physician: Vera Coello Reason for consult: abnormal CXR/CT Chief complaint: Shortness of breath History of present illness: This is a very pleasant 71-year-old gentleman well-known to the pulmonary service with a history of severe emphysema and fibrotic cavitary lung nodule with mediastinal and hilar lymphadenopathy. He presented with worsening shortness of breath over a couple of days prior to admission was found to have obvious wheezing concerning for acute exacerbation of COPD. With treatment of steroids antimicrobials and bronchodilators patient has improved over the last several days and says that breathing is good as long as he is sitting still he still has some residual dyspnea when he is exerting himself. He denies weight loss fever chills hemoptysis. He continues on a regimen of a long-acting muscarinic antagonist (Anoro) and short acting beta agonist on an as-needed basis in general he has pretty good exercise tolerance and symptoms have been relatively well controlled over the last several months since his last exacerbation in September. He has been followed by pulmonary as an outpatient for ongoing radiographic surveillance of changes in his lung. Encouragingly he remains tobacco free. Past Med Surg Social Fam HX - Past Medical History Medical history: COPD, hypertension Psychiatric history: no psych history - Past Surgical History Surgical History: no surgical history - Social History Smoking Status: Former smoker Smokeless Tobacco Status: No Alcohol use: rarely Drug use: none - Family History Father Living Status: Age at : 68 Cause of : CHF Hx Family Cardiac Disorders: Yes Hx Family Respiratory Disorders: Yes Hx Family Cancer: No Hx Family GI Disorders: No Hx Family Endocrine Disorder: Yes (DM) Hx Family Neuromuscular Disorders: No Mother Living Status: Age at : 70 Hx Family Cardiac Disorders: Yes (HTN) Hx Family Endocrine Disorder: Yes (DM) Medications and Allergies Aspirin 325 mg PO DAILY 09/11/16 [History] Multivit,Th Iron,Other Min [Thera-M] 1 tab PO DAILY 09/11/16 [History] Albuterol Sulfate [Albuterol Inhaler] 2 puff IH Q4-6H PRN 04/11/17 [History] Hydrochlorothiazide [Microzide] 12.5 mg PO DAILY 04/11/17 [History] Umeclidinium Brm/Vilanterol Tr [Anoro Ellipta 62.5-25 Mcg INH] 1 puff IH DAILY 04/11/17 [History] 3 Allergy/AdvReac Type Severity Reaction Status Date / Time Penicillins [PCN] Allergy Hives Verified 04/10/17 19:26 All Systems: A 10-system review of systems was performed and is negative for pertinent findings except as documented above in the HPI. Physical Examination Vital Signs: Vital Signs, Last 4 Hours Temp Pulse Resp BP Pulse Ox 04/15/17 06:31 97.8 F 91 18 159/71 94 04/15/17 03:50 16 98 04/15/17 03:18 98.1 F 85 16 136/77 96 General appearance: no acute distress Eyes: nonicteric ENT: oropharynx moist Neck: no lymphadenopathy Effort: mildly labored Auscultation: bilateral: diminished breath sounds, wheezes (faint exp whe ) Cardiovascular: regular rate and rhythm Gastrointestinal: normoactive bowel sounds, soft, non-tender Integumentary: normal Extremities: no clubbing, edema (b/ 1+ le edema ) Musculoskeletal: no deformities normal mental status, non-focal exam Results - Laboratory Findings CBC and BMP: 04/15/17 05:20 04/15/17 05:20 Abnormal lab findings: Abnormal lab results MPV 8.5 fL (9.4-12.4) L 04/15/17 05:20 Neutrophils # 9.3 K/mcL (1.6-8.9) H 04/15/17 05:20 BUN 33 mg/dL (8-26) H 04/15/17 05:20 Est GFR (Non-Af Amer) 59 (> 60) L 04/15/17 05:20 BUN/Creatinine Ratio 27 (6-26) H 04/15/17 05:20 Glucose 139 mg/dL (70-99) H 04/15/17 05:20 Calculated Osmolality 302 (280-300) H 04/15/17 05:20 Serum Total Protein 9.7 g/dL (6.0-8.3) H 04/11/17 05:16 Globulin 5.8 g/dL (2.4-3.5) H 04/11/17 05:16 Albumin/Globulin Ratio 0.7 (1.1-2.2) L 04/11/17 05:16 TSH 16.391 mcIU/mL (0.350-4.840) H 04/10/17 21:11 Free T4 0.49 ng/dl (0.70-1.48) L 04/11/17 05:16 - Diagnostic Findings Chest x-ray: report reviewed, image reviewed CT scan - chest: report reviewed, image reviewed - Clinical Findings Intake & Output: Intake & Output 04/14/17 04/14/17 04/15/17 15:59 23:59 07:59 Intake Total 480 / 480 Balance 480 / 480 Weight 88 kg Consult Discharge Plan - Plan Referrals: Marce Andres, B[employer] STAP[employer]ER [Primary Care Provider] -
[2017-04-15] MEDS: amLODIPine 5 MG TABLET PO SCH (08:24)
[2017-04-15] MEDS: Aspirin 325 MG TABLET PO SCH (08:24)
[2017-04-15 14:27] VITALS: BP 170/66
--- NOTE | 2017-04-15 14:41 | Discharge Summary ---
Date of Encounter: 04/15/17 Time of Encounter: 14:37 - Discharge Diagnosis (1) Acute exacerbation of chronic obstructive airways disease Priority: Primary Status: Acute (2) Hypertension Priority: Secondary Status: Chronic Qualifiers: Hypertension type: essential hypertension Qualified Code(s): I10 - Essential (primary) hypertension (3) CLYDE (acute kidney injury) Priority: Primary Status: Acute (4) Hypothyroidism Priority: Primary Status: Acute Qualifiers: Hypothyroidism type: acquired Qualified Code(s): E03.9 - Hypothyroidism, unspecified - Discharge Medications Prescriptions: Budesonide/Formoterol 160/4.5 [Symbicort 160/4.5] 2 puff IH BIDR 30 Days hfa.aer.ad Levothyroxine [Synthroid] 125 mcg PO DAILY@0630 #30 tablet predniSONE [PredniSONE] 40 mg PO DAILY 12 Days tablet Home Medications: Aspirin 325 mg PO DAILY 09/11/16 [History] Multivit,Th Iron,Other Min [Thera-M] 1 tab PO DAILY 09/11/16 [History] Albuterol Sulfate [Albuterol Inhaler] 2 puff IH Q4-6H PRN 04/11/17 [History] Hydrochlorothiazide [Microzide] 12.5 mg PO DAILY 04/11/17 [History] Umeclidinium Brm/Vilanterol Tr [Anoro Ellipta 62.5-25 Mcg INH] 1 puff IH DAILY 04/11/17 [History] Budesonide/Formoterol 160/4.5 [Symbicort 160/4.5] 2 puff IH BIDR 30 Days hfa.aer.ad 04/15/17 [Rx] Levothyroxine [Synthroid] 125 mcg PO DAILY@0630 #30 tablet 04/15/17 [Rx] predniSONE [PredniSONE] 40 mg PO DAILY 12 Days tablet 04/15/17 [Rx] Allergies/Adverse Reactions: 3 Allergy/AdvReac Type Severity Reaction Status Date / Time Penicillins [PCN] Allergy Hives Verified 04/10/17 19:26 Date of admission: 04/10/17 23:48 Primary care physician: Marce Andres CNP Consults: 04/14/17 13:20 Consult to Pulmonology [CONS] Routine Consulting Provider: [facility] Reason for Consult: Severe COPD, not improving Call Completed: Yes Discharging clinician: Vera Coello Anticipated date of discharge: 04/15/17 - Patient Status Disposition: Home, Self-Care Condition: Fair Functional capacity at discharge: independent ambulation Overall status at discharge: patient is progressing back to baseline - Discharge Instructions Follow Up With: Marce Andres COPPER PLATE PRINTER [Primary Care Provider] - Additional Instructions: F/up with PCP in 1-2 weeks F/up with Pulmonology in 3-4 weeks - Diet and Activity Activity: resume usual activities as tolerated Diet: low fat, low cholesterol, low salt diet Hospital course: Mr. Hidalgo is a 71 year old male - Time Spent with Patient Total time spent providing and/or coordinating discharge services: Greater than 30 minutes (45 min) - Constitutional Vitals: Temp Pulse Resp BP Pulse Ox 97.8 F 97 16 170/66 97 04/15/17 14:26 04/15/17 14:26 04/15/17 14:26 04/15/17 14:26 04/15/17 14:26 General appearance: Present: cooperative, A&O X 3, pleasant, answers questions appropriately - Respiratory Respiratory exam: Present: CTAB. Absent: accessory muscle use, rales, rhonchi, wheezes
[2017-04-15] MEDS ORDERED: Furosemide 40 MG/4 ML VIAL IVP ONE (15:52)
== END 2017-04-15 18:45 | disposition home or self-care (01) ==
LOC: 3BNU 19:21 → EMEROO 19:21 → SUATTDRO 23:48 → 3BNU 23:54
PROVIDERS: ADMIT Pediatrics; ATTEND Internal Medicine

== ENCOUNTER 2017-10-07 18:08 | Inpatient (IN) ==
[2017-10-07] MEDS ORDERED: 0.9 % Sodium Chloride 1,000 ML IVC ONE (18:34)
--- NOTE | 2017-10-07 18:34 | Emergency Department Note ---
Disposition Clinical Impression: Acute cholecystitis, Perforated gallbladder, Intra-abdominal abscess, CLYDE ( acute kidney injury), Pneumoperitoneum Disposition: Admitted As Inpatient Condition: Fair Time of Disposition: 20:49 Abdominal Pain HPI - General Chief Complaint: ED Abdominal Pain Stated Complaint: Abd Pain Time Seen by Provider: 10/07/17 18:19 Source: patient - History of Present Illness HPI Narrative: 72 yo M c PMHx of COPD, HTN reports to the ED c/o achy, RLQ abdominal pain x 2 weeks. Patient reports has not had a bowel movement since last Saturday(so over a week), He reports lack of appetite and has had very little PO intake over this time. He denies N,V,D, Fever, Chills, Dysuria, increased frequency, sore throat , SOB, Chest Pain. He denies prior abdominal surgery. He reports he had to strain very hard his last bowel movement and has aching pain since. He has a very hoarse voice which he and family confirm is new, but reports his throat does not hurt. Pt Subjective Complaint: abdominal pain Onset (ago): week(s) Consistency: constant Location: LLQ, RLQ Pain Scale: 8 Quality: aching Improves with: nothing Worsens with: nothing Associated symptoms: Reports: constipation, anorexia. Denies: nausea, vomiting , diarrhea, fever, chills, dysuria, hematemesis, hematochezia, melena, hematuria - Related Data Home Medications Medication Instructions Recorded Confirmed Aspirin 325 mg PO DAILY 09/11/16 04/11/17 Multivit,Th Iron,Other Min 1 tab PO DAILY 09/11/16 04/11/17 [Thera-M] Albuterol Sulfate [Albuterol 2 puff IH Q4-6H PRN 04/11/17 04/11/17 Inhaler] Hydrochlorothiazide [Microzide] 12.5 mg PO DAILY 04/11/17 04/11/17 Umeclidinium Brm/Vilanterol Tr 1 puff IH DAILY 04/11/17 04/11/17 [Anoro Ellipta 62.5-25 Mcg INH] Previous Rx's Medication Instructions Recorded Budesonide/Formoterol 160/4.5 2 puff IH BIDR 30 Days hfa.aer.ad 04/15/17 [Symbicort 160/4.5] Levothyroxine [Synthroid] 125 mcg PO DAILY@0630 #30 tablet 04/15/17 predniSONE [PredniSONE] 40 mg PO DAILY 12 Days tablet 04/15/17 Allergies Allergy/AdvReac Type Severity Reaction Status Date / Time Penicillins [PCN] Allergy Hives Verified 04/10/17 19:26 All systems ED: reviewed and negative except as stated. Review of Systems: As Per HPI Abdominal Pain PMH - Past Medical History Medical history: Reports: COPD, hypertension Male Surgical History: Reports: no surgical history Psychiatric history: Reports: no psych history - Social History Smoking status: Former smoker Alcohol use: Reports: rarely Drug use: Reports: none Physical Exam - General Limitations: no limitations General appearance: alert - Head Head exam: atraumatic, normocephalic - Eye Eye exam: Present: PERRL, EOMI - ENT ENT exam: normal oropharynx, mucous membranes dry - Neck Neck exam: Present: full ROM, trachea midline - Chest Chest inspection: Present: symmetric chest wall rise. Absent: tenderness - Respiratory Respiratory exam: Present: other (very little air movement. ). Absent: respiratory distress - Cardiovascular Cardiovascular exam: Present: regular rate, normal rhythm - Abdominal Exam Abdominal exam: Present: soft, Non-Tender - Extremities Exam Extremities exam: Present: full ROM. Absent: pedal edema - Neurological Exam Neurological exam: Present: alert, oriented X3 - Psychiatric Psychiatric exam: Present: normal affect, normal mood - Skin Skin exam: Present: warm, dry Course Course Narrative: Patient with abdominal pain, Constipation, and Hoarseness. No prior abdominal surgeries, no other symptoms. Will check Abdominal labs and CT abd. Will give IV fluids. - Reevaluation(s) Reevaluation #1: Patient found to have perforated acute cholecystitis on CT scan WBC 22. - Consultations Consultation #1: Case was discussed with claims consultant surgeon. He stated to give IV abx and admit to hospitalist with likely surgery tomorrow. Consultation #2: Admitting hospitalist consulted and accepted the patient for admission. Vital Signs Temperature 98.6 F 10/07/17 18:12 Pulse Rate 91 10/07/17 18:12 Respiratory Rate 18 10/07/17 18:12 Blood Pressure 120/74 10/07/17 18:12 O2 Sat by Pulse Oximetry 95 10/07/17 18:12 Temperature 98.6 F 10/07/17 18:31 Pulse Rate 86 10/07/17 20:32 Respiratory Rate 18 10/07/17 20:32 Blood Pressure 144/86 10/07/17 20:32 O2 Sat by Pulse Oximetry 96 10/07/17 20:32 Oxygen Delivery Oxygen Delivery Room Air Abdominal Pain - MDM Narrative Medical decision making narrative: Patient with elevated WBC, Perforated acute cholecystitis on CT scan. Will admit to hospitalist with Surgery Consult. - Lab Data Lab results reviewed: Yes I reviewed the patient's lab results. Result diagrams: 10/07/17 18:45 10/07/17 18:45 Lab Results 10/07/17 10/07/17 10/07/17 Range/Units 18:45 18:45 19:58 WBC 22.1 H (4.3-11.1) K/mcL RBC 4.89 (4.19-5.50) M/mcL Hgb 13.8 (12.9-16.9) g/dL Hct 40.2 (37.5-50.1) % MCV 82.2 L (83.0-100.0) fL MCH 28.2 (28.0-33.3) pg MCHC 34.3 (31.6-35.5) g/dL RDW 14.6 H (11.5-14.5) % Plt Count 416 H (140-400) K/mcL MPV 9.0 L (9.4-12.4) fL Immature Gran % 1.9 (0-4) % Seg Neutrophils % 84.2 % Lymphocytes % 7.5 % Monocytes % 5.8 % Eosinophils % 0.2 % Basophils % 0.4 % Neutrophils # 18.7 H (1.6-8.9) K/mcL Lymphocytes # 1.7 (0.6-4.6) K/mcL Monocytes # 1.3 (0.0-1.3) K/mcL Eosinophils # 0.1 (0.0-0.6) K/mcL Basophils # 0.1 (0.0-0.2) K/mcL Sodium 127 L (136-145) mEq/L Potassium 2.8 L (3.5-5.1) mEq/L Chloride 88 L (98-107) mEq/L Carbon Dioxide 27 (23-29) mEq/L BUN 49 H (8-23) mg/dL Creatinine 1.81 H (0.70-1.30) mg/dL Est GFR ( Amer) 45 L (> 60) Est GFR (Non-Af Amer) 37 L (> 60) BUN/Creatinine Ratio 27 H (6-26) Glucose 178 H (70-105) mg/dL Calculated Osmolality 281 (280-300) Calcium 9.9 (8.6-10.3) mg/dL Total Bilirubin 1.2 H (0.3-1.0) mg/dL Direct Bilirubin 0.7 H (0.0-0.2) mg/dL Indirect Bilirubin 0.5 (0.0-1.2) mg/dL AST 44 H (13-39) Units/L ALT 30 (7-52) Units/L Alkaline Phosphatase 156 H (34-104) Units/L Serum Total Protein 8.2 (6.4-8.9) g/dL Albumin 3.2 L (3.5-5.7) g/dL Globulin 5.0 H (2.4-3.5) g/dL Albumin/Globulin Ratio 0.6 L (1.1-2.2) Amylase 37 (29-103) Units/L Lipase 30 (11-82) Units/L Urine Color Dark Yellow (Yellow) Urine Clarity Hazy (Clear) Urine pH 5.5 (5.0-8.0) pH Units Ur Specific [place] 1.027 H (1.010-1.025) Urine Protein 30 H (Neg-Trace) mg/dL Urine Glucose (UA) Normal (Normal) mg/dL Urine Ketones Negative (Negative) mg/dL Urine Blood Trace H (Negative) Urine Nitrite Negative (Negative) Urine Bilirubin Small H (Negative) Urine Urobilinogen Normal (Normal) mg/dL Ur Leukocyte Esterase Negative (Negative) Urine Microscopic RBC 3-5 H (0-3) per hpf Urine Microscopic WBC 0-3 (0-3) per hpf Ur Squamous Epith Cells Many H (None-Few) per lpf Ur Transition Epith Cell Few (None-Few) per hpf Ur Renal Epithelial Cell Few (None-Few) per hpf Amorphous Sediment Many H (Few) Urine Bacteria None Seen (None-Few) per hpf Hyaline Casts Moderate H (None-Few) per lpf Granular Casts Few H (None Seen) per lpf Ur Culture Indicated? NO (NO) - Radiology Data Radiology results reviewed: Yes I reviewed the patient's radiology results. Critical Care Time Critical Care Time: Yes Total Critical Care Time: 35 Attestation: Critical care time of 35 min spent med management of perforated gallbladder and consultation with gen surgery and hospitalist.
--- NOTE | 2017-10-07 18:48 | Emergency Department Note ---
START Narrative - START START: I examined this patient and my medical decision-making was reviewed with the Resident Physician. I agree with the documented findings, disposition and treatment plan as described except to the extent set forth below. 72-year-old male presents emergency room for lower abdominal pain. Patient states he has had right lower quadrant pain as well as some middle lower abdominal pain 2 weeks. No associated GI symptoms other than he feels slightly constipated. Has had a poor appetite. No documented fevers. No urinary complaints. No history of any abdominal surgeries. No other issues at this time. We will do lab work, urinalysis, CT scan abdomen and pelvis. Possible etiologies include diverticulitis versus appendicitis versus other bowel pathology.
[2017-10-07 18:55] LABS: Basophils # 0.1 K/mcL (0.0-0.2); Basophils % 0.4 %; Eosinophils # 0.1 K/mcL (0.0-0.6); Eosinophils % 0.2 %; Hematocrit 40.2 % (37.5-50.1); Hemoglobin 13.8 g/dL (12.9-16.9); Immature Granulocytes % 1.9 % (0-4); Lymphocytes # 1.7 K/mcL (0.6-4.6); Lymphocytes % 7.5 %; Mean Corpuscular HGB Conc 34.3 g/dL (31.6-35.5); Mean Corpuscular Hemoglobin 28.2 pg (28.0-33.3); Mean Corpuscular Volume 82.2 fL (83.0-100.0); Monocytes # 1.3 K/mcL (0.0-1.3); Monocytes % 5.8 %; Neutrophils # 18.7 K/mcL (1.6-8.9); Platelet Count 416 K/mcL (140-400); Red Blood Count 4.89 M/mcL (4.19-5.50); Red Cell Distribution Width 14.6 % (11.5-14.5); Segmented Neutrophils % 84.2 %
[2017-10-07 19:15] LABS: Albumin 3.2 g/dL (3.5-5.7); Albumin/Globulin Ratio 0.6 (1.1-2.2); Bilirubin,Direct 0.7 mg/dL (0.0-0.2); Bilirubin,Indirect 0.5 mg/dL (0.0-1.2); Bilirubin,Total 1.2 mg/dL (0.3-1.0); Calcium 9.9 mg/dL (8.6-10.3); Potassium 2.8 mEq/L (3.5-5.1); Total Protein 8.2 g/dL (6.4-8.9)
[2017-10-07 20:14] LABS: Bilirubin,Urine Small (Negative); Blood,Urine Trace (Negative); Color,Urine Dark Yellow (Yellow); Glucose,Urine (UA) Normal (Normal); Ketones,Urine Negative (Negative); Leukocyte Esterase,Urine Negative (Negative); Nitrite,Urine Negative (Negative); PH,Urine 5.5 pH Units (5.0-8.0); Protein,Urine 30 mg/dL (Neg-Trace); Specific Gravity,Urine 1.027 (1.010-1.025); Urobilinogen,Urine Normal (Normal)
[2017-10-07 20:19] LABS: Bacteria,Urine None Seen per hpf (None-Few); Squamous Epithelial Cell,Urine Many per lpf (None-Few); WBC,Urine 0-3 per hpf (0-3)
[2017-10-07] MEDS ORDERED: MetroNIDAZOLE 500 MG/100 ML 500 MG/100 ML BAG IVPB ONE (20:19)
[2017-10-07 20:21] LABS: Clarity,Urine Hazy (Clear)
[2017-10-07 20:43] LABS: Granular Casts,Urine Few per lpf (None Seen)
[2017-10-07 20:44] LABS: Hyaline Casts,Urine Moderate per lpf (None-Few)
[2017-10-07 20:45] LABS: Transitional Epi Cells,Urine Few per hpf (None-Few)
[2017-10-07 20:46] LABS: Amorphous Sediment,Urine Many (Few); Renal Epithelial Cells,Urine Few per hpf (None-Few)
[2017-10-07] MEDS ORDERED: Naloxone 0.4 MG/ML INJ IVP PRN (21:11)
[2017-10-07] MEDS ORDERED: Acetaminophen 325 MG TABLET PO PRN (21:11)
[2017-10-07] MEDS ORDERED: 0.9 % Sodium Chloride 1,000 ML IVC SCH (21:15)
--- NOTE | 2017-10-07 21:23 | Internal Med History&Physical ---
Date of Encounter: 10/07/17 Time of Encounter: 21:19 Internal Medicine - H&P: HPI Chief complaint: Abdominal pain Admitted From: Emergency Dept Plans for Post Hospital Care: Home History of present illness: Mr. Hidalgo is a 72 year old male with past medical history of COPD (wears 2 L oxygen at home PRN), hypothyroidism, hypertension. Patient arrived to the emergency department today with chief complaint of right upper quadrant pain has been going on for about a week and a half. He rates the pain as 7/10 and describes it as a dull ache located in his right upper quadrant. The pain is intermittent without any exacerbating or relieving factors. He denies nausea, vomiting, diarrhea, fever, chills. He does reports shortness of breath with exertion. He denies hematuria, hematochezia, melena. Patient does report anorexia for about 2 weeks and states that he has very little appetite and has not been eating much at all. Patient is a former smoker" about 3 years ago. He states he used to smoke one half pack per day. He reports occasional alcohol use, denies any illicit drug use. Past Med Surg Social Fam HX - Past Medical History Medical history: COPD, hypertension Psychiatric history: no psych history - Past Surgical History Surgical History: no surgical history - Social History Smoking Status: Former smoker Smokeless Tobacco Status: No Alcohol use: rarely Drug use: none - Family History Father Living Status: Hx Family Cardiac Disorders: Yes Hx Family Respiratory Disorders: Yes Hx Family Cancer: No Hx Family GI Disorders: No Hx Family Endocrine Disorder: Yes (DM) Hx Family Neuromuscular Disorders: No Mother Living Status: Hx Family Cardiac Disorders: Yes (HTN) Hx Family Endocrine Disorder: Yes (DM) Internal Medicine - H&P: Meds Aspirin 325 mg PO DAILY 09/11/16 [History] Multivit,Th Iron,Other Min [Thera-M] 1 tab PO DAILY 09/11/16 [History] Albuterol Sulfate [Albuterol Inhaler] 2 puff IH Q4-6H PRN 04/11/17 [History] Hydrochlorothiazide [Microzide] 12.5 mg PO DAILY 04/11/17 [History] Umeclidinium Brm/Vilanterol Tr [Anoro Ellipta 62.5-25 Mcg INH] 1 puff IH DAILY 04/11/17 [History] Budesonide/Formoterol 160/4.5 [Symbicort 160/4.5] 2 puff IH BIDR 30 Days hfa.aer.ad 04/15/17 [Rx] Levothyroxine [Synthroid] 125 mcg PO DAILY@0630 #30 tablet 04/15/17 [Rx] predniSONE [PredniSONE] 40 mg PO DAILY 12 Days tablet 04/15/17 [Rx] 3 Allergy/AdvReac Type Severity Reaction Status Date / Time Penicillins [PCN] Allergy Hives Verified 04/10/17 19:26 All Systems PM: A 10-system review of systems was performed and is negative for pertinent findings except as documented above in the HPI. - Constitutional Constitutional: as per HPI - EENT Eyes: as per HPI Ears: as per HPI Nose, mouth and throat: as per HPI - Breasts Breasts: as per HPI - Cardiovascular Cardiovascular ROS IM: as per HPI - Respiratory Respiratory: as per HPI - Gastrointestinal Gastrointestinal: as per HPI - Genitourinary Genitourinary ROS male: as per HPI - Musculoskeletal Musculoskeletal ROS IM: as per HPI - Integumentary Integumentary IM: as per HPI - Neurological Neurological ROS: as per HPI - Psychiatric Psychiatric: as per HPI - Endocrine Endocrine IM: as per HPI - Allergic/Immunologic Allergic/Immunologic: as per HPI - Constitutional Vitals: Temp Pulse Resp BP Pulse Ox 98.6 F 86 18 134/72 96 10/07/17 18:31 10/07/17 20:32 10/07/17 21:09 10/07/17 21:09 10/07/17 20:32 General appearance: Present: A&O X 3, pleasant, no acute distress, answers questions appropriately - Head Head exam: Present: atraumatic, normocephalic - Respiratory Respiratory exam: Present: CTAB - Cardiovascular Cardiovascular exam: Present: RRR, +S1, +S2 - GI/Abdominal Additional comments: Abdomen is firm, significantly distended, hypoactive bowel sounds present. Tenderness to palpation in the right upper quadrant without guarding present. - Extremities Exam Extremities exam: Absent: cyanotic, pedal edema - Neurological Exam Neurological exam: Present: alert, oriented X3, no focal deficits - Psychiatric Psychiatric exam: Present: normal affect, normal mood Internal Med - H&P Results - Labs CBC & Chem 7: 10/07/17 18:45 05/28/18 18:45 - Assessment and plan (1) Severe sepsis Current Visit: Yes Status: Acute Assessment and plan: HR>90, WBC 22.1, CLYDE of note, patient does take prednisone at home which likely contributes to elevated WBC suspected source of infection: abdominal. CT abdomen/pelvis showed acute cholecystitis with perihepatic abscess with trace pneumoperitoneum, cholelithiasis, diffuse gallbladder wall thickening, inflammatory changes along the descending colon, hepatic flexure, proximal transverse colon. Plan: clear liquid diet, NPO after midnight appreciate surgery recommendations pain control IV fluids continue Cipro and Flagyl (2) Acute cholecystitis Current Visit: Yes Status: Acute Assessment and plan: Plan as above (3) Perforated gallbladder Current Visit: Yes Status: Acute Assessment and plan: Plan as above (4) CLYDE (acute kidney injury) Current Visit: Yes Status: Acute Assessment and plan: Creatinine 1.81, prior creatinine 1.4 on 09/27 etiology likely prerenal secondary to dehydration and decreased oral intake. Plan: 1 L bolus given in the emergency department, continue maintenance fluids (5) Hyponatremia Current Visit: Yes Status: Acute Assessment and plan: Hypovolemic hyponatremia, likely secondary to decreased oral intake plan: fluid resuscitate, continue to monitor (6) Hypokalemia Current Visit: Yes Status: Acute Assessment and plan: Potassium 2.8, continue with replacement and recheck (7) Hypertension Current Visit: No Status: Chronic Assessment and plan: resume home meds once verified PRN hydralazine Qualifiers: Hypertension type: essential hypertension Qualified Code(s): I10 - Essential (primary) hypertension (8) Hypothyroidism Current Visit: No Status: Acute Assessment and plan: Continue home medication once verified Qualifiers: Hypothyroidism type: acquired Qualified Code(s): E03.9 - Hypothyroidism, unspecified (9) DVT prophylaxis Current Visit: No Status: Acute Assessment and plan: Heparin sq - Time Spent With Patient Total time spent is greater than 50% in coordination of care (as documented) at patient's floor/unit and/or counseling patient:
--- NOTE | 2017-10-07 21:38 | Event Note ---
Date of Encounter: 10/07/17 Time of Encounter: 21:30 Patient was seen and examined. I agree with the H&P as written by the Resident Physician. Briefly, 72 yo M with h/o COPD on as needed O2 at home, HTN, who comes in with 2 weeks of RUQ pain. Has decreased PO intake. Has been stubborn per family to get evaluated but finally came in where he was fount to have leukocytosis, Evelio, hypokalemia, hyponatremia, elevated Alk phos, mildly elevated AST. CT abd/ pelvis showed acute jessica with perforation with associated perihepatic abscess. Trace pneumoperitoneum. Dr. Menchaca contacted in the ED and didn't think he needed emergent surgery. He recommended admission to hospitalist and optimization of electrolytes and kidney function prior to taking him to the OR. Patient is hemodynamically stable in terms of vitals A/Ox3, NAD RRR. S1, S2, No m/r/g CTAB Abdomen is distended, RUQ tenderness, no rebound. +BS Nonfocal neuro exam No edema. 2+ DP Admit to hospitalist for acute jessica with perf/Sepsis IV cipro/flagyl NPO after midnight pain control IV fluids Anti-emetics Replace potassium Avoid nephrotoxins EKG for pre-op purposes DVT ppx
[2017-10-07] MEDS ORDERED: OXYCODONE Oral CONC 10 MG/0.5 ML ORAL.SYG SL PRN (21:41)
[2017-10-07] MEDS ORDERED: Ondansetron 4 MG/2 ML VIAL IVP PRN (21:48)
[2017-10-08] MEDS: MetroNIDAZOLE 500 MG/100 ML 500 MG/100 ML BAG IVPB SCH ×4 (01:26→15:16)
[2017-10-08 04:52] LABS: Basophils # 0.1 K/mcL (0.0-0.2); Basophils % 0.3 %; Eosinophils # 0.1 K/mcL (0.0-0.6); Eosinophils % 0.4 %; Hematocrit 39.1 % (37.5-50.1); Hemoglobin 13.4 g/dL (12.9-16.9); Immature Granulocytes % 1.7 % (0-4); Lymphocytes # 1.1 K/mcL (0.6-4.6); Lymphocytes % 5.3 %; Mean Corpuscular HGB Conc 34.3 g/dL (31.6-35.5); Mean Corpuscular Hemoglobin 28.9 pg (28.0-33.3); Mean Corpuscular Volume 84.4 fL (83.0-100.0); Mean Platelet Volume 9.3 fL (9.4-12.4); Monocytes # 1.1 K/mcL (0.0-1.3); Monocytes % 5.1 %; Neutrophils # 18.1 K/mcL (1.6-8.9); Platelet Count 391 K/mcL (140-400); Red Blood Count 4.63 M/mcL (4.19-5.50); Red Cell Distribution Width 14.8 % (11.5-14.5); Segmented Neutrophils % 87.2 %
[2017-10-08 05:14] LABS: Alanine Aminotransferase 28 Units/L (7-52); Albumin 2.9 g/dL (3.5-5.7); Albumin/Globulin Ratio 0.6 (1.1-2.2); Alkaline Phosphatase 151 Units/L (34-104); Aspartate Amino Transferase 42 Units/L (13-39); BUN/Creatinine Ratio 30 (6-26); Bilirubin,Total 1.1 mg/dL (0.3-1.0); Blood Urea Nitrogen 41 mg/dL (8-23); Calcium 9.2 mg/dL (8.6-10.3); Carbon Dioxide 27 mEq/L (23-29); Chloride 96 mEq/L (98-107); Globulin 4.5 g/dL (2.4-3.5); Glucose 101 mg/dL (70-105); Magnesium 1.9 mg/dL (1.6-2.6); Osmolality,Calculated 282 (280-300); Phosphorous 2.7 mg/dL (2.7-4.5); Potassium 3.6 mEq/L (3.5-5.1); Sodium 131 mEq/L (136-145); Total Protein 7.4 g/dL (6.4-8.9); eGFR For African Americans > 60 (> 60); eGFR For Non-African Americans 51 (> 60)
[2017-10-08] MEDS ORDERED: *HR* Heparin 5,000 UNIT/ML VIAL SQ SCH (06:00)
[2017-10-08] MEDS ORDERED: Ondansetron 4 MG/2 ML VIAL IVP PRN (11:33)
[2017-10-08] MEDS ORDERED: OXYCODONE Oral CONC 10 MG/0.5 ML ORAL.SYG SL PRN (11:33)
--- NOTE | 2017-10-08 11:37 | General Surgery Consult Note ---
Date of Encounter: 10/08/17 Time of Encounter: 11:34 History of Present Illness Reason for consult: abdominal pain (evidence perforated GB with perihepatic abscess) Requesting physician: Jaxon Flores History of present illness: 72-year-old male referred for surgical evaluation after presenting to [facility] Emergency Department with approximately a 2 week history progressive right upper quadrant abdominal pain. Patient denies nausea vomiting but "was just not hungry". The patient's sister indicates that he has not eaten properly in 2 weeks. The patient ultimately presented to the emergency department last evening for further evaluation and treatment of these complaints. He was found to be quite tender in the right upper quadrant with a leukocytosis of 22.1, 18.7 neutrophils. Sodium was markedly depressed at 127, potassium 2.8, BUN elevated at 49, creatinine 1.81. Bilirubin 1.2, AST 44, ALT 30, alkaline phosphatase 156. Amylase and lipase normal at [address] of the abdomen/ pelvis was reviewed with [facility] this Am. Pertinent findings include: Splenic calcifications consistent with old granulomatous disease; inflamed a sending colon, hepatic flexure, and transverse colon adjacent to a large pericholecystic abscess. The gallbladder is abnormal with markedly wall thickening, pericholecystic induration and fluid, gallstones, and they are both in side the fundus as well as outside the gallbladder wall. These findings are all consistent with an acute perforated gallbladder with subsequent pericholecystic abscess. The patient has been admitted, IV fluids administered, antibiotics initiated, and the electrolyte abnormalities addressed. My presentation to bedside this morning, the patient is feeling better. He has remained afebrile, hemodynamically stable, pulse 71-82, respirations 18-25, blood pressure 103/66 to 118/68. SPO2 on 2 L/m nasal cannula, 96-98%. 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 525 micrograms per inhalation; one puff daily budesonide/formoterol 160/4.5 2 puffs twice a day Levothyroxine 125 g by mouth daily Social history: The patient admits to smoking approximately 1 pack per day for greater than 50 years; the patient indicates he quit smoking approximately 3-5 years ago; he has smoked since the approximate age of 12; he admits to a rare alcoholic beverage; he denies any illicit drug use. On physical examination: This is a 72-year-old patient who appears older than his stated age. Most recent vital signs - temperature 98.6, pulse 74, respirations 25, blood pressure 117/69 Skin: Warm, no obvious jaundice Cardiac: Regular rate, no appreciable murmurs Lungs: Markedly diminished bibasilar breath sounds; no audible wheezes or rales. Abdomen: Protuberant with minimal tenderness in the right upper quadrant. Active bowel sounds. No peritoneal signs or rebound. Repeat labs this morning: White count has improved to 20.7; hemoglobin stable at 13.4, hematocrit 39.1. Platelet count 391,000; neutrophils 18.1. Sodium has improved to 131, potassium corrected to 3.6, BUN has improved to 41, creatinine 1.38. Bilirubin 1.1; AST 42, ALT 28, alkaline phosphatase 151. Impression: 72-year-old male admitted after presenting to [facility] ED with a 2 week history of progressive right upper quadrant abdominal pain. He has radiologic evidence of cholelithiasis with perforated cholecystitis and pericholecystic abscess. Hyponatremia- improved since admission from 127 to 131 Hyperkalemia - corrected Evidence of dehydration improved post admission secondary to IV fluids. Radiologic findings have been discussed in detail with the patient and his sister. I have also reviewed these findings with [facility]. Percutaneous drainage of the pericholecystic abscess will be completed by IR Open cholecystectomy will be planned once the patient's medical status has been stabilized. Diet is allowed once the patient's anorexia has been controlled/diminished. This is anticipated following percutaneous drainage of the pericholecystic abscess. Thank you for this consultation; I will follow along with you. Past Med Surg Social Fam HX - Past Medical History Medical history: COPD, hypertension Psychiatric history: anxiety, depression - Past Surgical History Surgical History: no surgical history - Social History Smoking Status: Former smoker Smokeless Tobacco Status: No Alcohol use: rarely Drug use: none - Family History Father Living Status: Hx Family Cardiac Disorders: Yes Hx Family Respiratory Disorders: Yes Hx Family Cancer: No Hx Family GI Disorders: No Hx Family Endocrine Disorder: Yes (DM) Hx Family Neuromuscular Disorders: No Mother Living Status: Hx Family Cardiac Disorders: Yes (HTN) Hx Family Endocrine Disorder: Yes (DM) Medications and Allergies Aspirin 325 mg PO DAILY 09/11/16 [History] Multivit,Th Iron,Other Min [Thera-M] 1 tab PO DAILY 09/11/16 [History] Albuterol Sulfate [Albuterol Inhaler] 2 puff IH Q4-6H PRN 04/11/17 [History] Hydrochlorothiazide [Microzide] 12.5 mg PO DAILY 04/11/17 [History] Budesonide/Formoterol 160/4.5 [Symbicort 160/4.5] 2 puff IH BIDR 30 Days hfa.aer.ad 04/15/17 [Rx] Levothyroxine [Synthroid] 125 mcg PO DAILY@0630 #30 tablet 04/15/17 [Rx] Cyclobenzaprine [Flexeril] 10 mg PO TID 10/08/17 [History] Umeclidinium [place] [Incruse Ellipta] 1 puff IH DAILY 10/08/17 [History] 3 Allergy/AdvReac Type Severity Reaction Status Date / Time Penicillins [PCN] Allergy Hives Verified 10/08/17 08:36 Review of Systems All systems PM: The remainder of the systems were reviewed and are negative General Surgery Exam Initial Vital Signs Temp Pulse Resp BP Pulse Ox 98.6 F 91 18 120/74 95 10/07/17 18:12 10/07/17 18:12 10/07/17 18:12 10/07/17 18:12 10/07/17 18:12 Exam Initial Vital Signs Temp Pulse Resp BP Pulse Ox 98.6 F 91 18 120/74 95 10/07/17 18:12 10/07/17 18:12 10/07/17 18:12 10/07/17 18:12 10/07/17 18:12 Results - Labs 10/08/17 03:37 10/08/17 03:37 Abnormal lab results WBC 20.7 K/mcL (4.3-11.1) H 10/08/17 03:37 RDW 14.8 % (11.5-14.5) H 10/08/17 03:37 MPV 9.3 fL (9.4-12.4) L 10/08/17 03:37 Neutrophils # 18.1 K/mcL (1.6-8.9) H 10/08/17 03:37 Sodium 131 mEq/L (136-145) L 10/08/17 03:37 Chloride 96 mEq/L (98-107) L 10/08/17 03:37 BUN 41 mg/dL (8-23) H 10/08/17 03:37 Creatinine 1.38 mg/dL (0.70-1.30) H 10/08/17 03:37 Est GFR (Non-Af Amer) 51 (> 60) L 10/08/17 03:37 BUN/Creatinine Ratio 30 (6-26) H 10/08/17 03:37 POC Glucose 109 mg/dL (70-99) H 10/08/17 06:03 Total Bilirubin 1.1 mg/dL (0.3-1.0) H 10/08/17 03:37 Direct Bilirubin 0.7 mg/dL (0.0-0.2) H 10/07/17 18:45 AST 42 Units/L (13-39) H 10/08/17 03:37 Alkaline Phosphatase 151 Units/L (34-104) H 10/08/17 03:37 Albumin 2.9 g/dL (3.5-5.7) L 10/08/17 03:37 Globulin 4.5 g/dL (2.4-3.5) H 10/08/17 03:37 Albumin/Globulin Ratio 0.6 (1.1-2.2) L 10/08/17 03:37 Ur Specific [place] 1.027 (1.010-1.025) H 10/07/17 19:58 Urine Protein 30 mg/dL (Neg-Trace) H 10/07/17 19:58 Urine Blood Trace (Negative) H 10/07/17 19:58 Urine Bilirubin Small (Negative) H 10/07/17 19:58 Urine Microscopic RBC 3-5 per hpf (0-3) H 10/07/17 19:58 Ur Squamous Epith Cells Many per lpf (None-Few) H 10/07/17 19:58 Amorphous Sediment Many (Few) H 10/07/17 19:58 Hyaline Casts Moderate per lpf (None-Few) H 10/07/17 19:58 Granular Casts Few per lpf (None Seen) H 10/07/17 19:58 Diabetes panel 10/08/17 Range/Units 03:37 Sodium 131 L (136-145) mEq/L Potassium 3.6 D (3.5-5.1) mEq/L Chloride 96 L (98-107) mEq/L Carbon Dioxide 27 (23-29) mEq/L BUN 41 H (8-23) mg/dL Creatinine 1.38 H (0.70-1.30) mg/dL Glucose 101 (70-105) mg/dL Calcium 9.2 (8.6-10.3) mg/dL AST 42 H (13-39) Units/L ALT 28 (7-52) Units/L Alkaline Phosphatase 151 H (34-104) Units/L Albumin 2.9 L (3.5-5.7) g/dL Calcium panel 10/08/17 Range/Units 03:37 Calcium 9.2 (8.6-10.3) mg/dL Phosphorus 2.7 (2.7-4.5) mg/dL Albumin 2.9 L (3.5-5.7) g/dL Pituitary panel 10/08/17 Range/Units 03:37 Sodium 131 L (136-145) mEq/L Potassium 3.6 D (3.5-5.1) mEq/L Chloride 96 L (98-107) mEq/L Carbon Dioxide 27 (23-29) mEq/L BUN 41 H (8-23) mg/dL Creatinine 1.38 H (0.70-1.30) mg/dL Glucose 101 (70-105) mg/dL Calcium 9.2 (8.6-10.3) mg/dL Adrenal panel 10/08/17 Range/Units 03:37 Sodium 131 L (136-145) mEq/L Potassium 3.6 D (3.5-5.1) mEq/L Chloride 96 L (98-107) mEq/L Carbon Dioxide 27 (23-29) mEq/L BUN 41 H (8-23) mg/dL Creatinine 1.38 H (0.70-1.30) mg/dL Glucose 101 (70-105) mg/dL Calcium 9.2 (8.6-10.3) mg/dL Total Bilirubin 1.1 H (0.3-1.0) mg/dL AST 42 H (13-39) Units/L ALT 28 (7-52) Units/L Alkaline Phosphatase 151 H (34-104) Units/L Albumin 2.9 L (3.5-5.7) g/dL All other labs normal. Consult Discharge Plan - Plan Referrals: Marce Andres, HERMANN [Primary Care Provider] - 10/16/17 1:00 pm
[2017-10-08] MEDS ORDERED: *HR* FentaNYL (PF) 100 MCG/2 ML VIAL IVP ONE (12:03)
[2017-10-08] MEDS ORDERED: *HR* Midazolam HCl 2 MG/2 ML VIAL IVP ONE (12:03)
--- NOTE | 2017-10-08 12:04 | Pre-Sedation Evaluation ---
Pre-sedation evaluation - Pre-sedation checklist Date of procedure: 10/08/17 Procedure: drain Recent Vitals: Last Vital Signs Temp 98.6 F 10/08/17 11:35 Pulse 78 10/08/17 11:35 Resp 18 10/08/17 11:35 BP 103/66 10/08/17 11:35 Pulse Ox 96 10/08/17 11:35 H&P (including ROS) documented in medical record: Yes Previous reaction to sedatives/anesthetics: No Dietary Status: NPO after Midnight Dentition: No loose teeth or bridges Possible difficult airway: No ASA Classification *see protocol: CLASS II-Mild systemic disease Plan of Care: Pt appropriate candidate for procedure/moderate/conscious sedation , Risks/benefits of procedure/sedation discussed w/ patient/family
[2017-10-08] MEDS ORDERED: 0.9 % Sodium Chloride 500 ML ONE (12:06)
--- NOTE | 2017-10-08 12:26 | IR Procedure Note ---
Date of procedure: 10/08/17 Consent Obtained: Verbal consent, Written consent Timeout: Correct patient and procedure verified, Correct site verified, Time out performed, Skin prep completed Local anesthetic: Lidocaine 1% Indications: Abdominal abscess Procedure Performed: CT guided drain placement Was there an operating room assistant present: No Site/Technique: 12 [place] abdominal drain placed in VIR Results/Findings: Purulent fluid Estimated blood loss (cc): 1 Complications: None; Tolerated procedure well Post Procedure Treatment Plan: Drain to [facility] drainage Specimen: 60 cc purulent fluid
[2017-10-08 13:46] LABS: Prothrombin Time 21.7 Seconds (9.4-12.1)
--- NOTE | 2017-10-08 17:46 | Internal Med Progress Note ---
Date of Encounter: 10/08/17 Time of Encounter: 17:44 - Assessment and plan (1) Liver abscess Current Visit: Yes Status: Acute Assessment and plan: Surgery consulted; appreciate input. S/P 12 [place]olese abdominal drain in VIR. Plan for cholecystectomy. CLD; advance as tolerated. Pain control. Continue IV cipro and IV flagyl. (2) Perforated gallbladder Current Visit: Yes Status: Acute Assessment and plan: Management as per above. (3) Acute cholecystitis Current Visit: Yes Status: Acute Assessment and plan: Management as per above. (4) Severe sepsis Current Visit: Yes Status: Acute Assessment and plan: Improving. WBC decreasing. Continue IVF, IV cipro, and IV flagyl. Recheck labwork in AM. Monitor vitals closely. (5) CLYDE (acute kidney injury) Current Visit: Yes Status: Acute Assessment and plan: Improving. Continue IVF. Started diet today. Recheck BMP in AM. (6) Hypertension Current Visit: Yes Status: Chronic Assessment and plan: Continue PRN hydralazine. Qualifiers: Hypertension type: essential hypertension Qualified Code(s): I10 - Essential (primary) hypertension (7) Hypothyroidism Current Visit: Yes Status: Acute Assessment and plan: Restart home levothyroxine. Qualifiers: Hypothyroidism type: acquired Qualified Code(s): E03.9 - Hypothyroidism, unspecified (8) Hypokalemia Current Visit: Yes Status: Resolved Assessment and plan: Resolved. Recheck BMP in AM. (9) Hyponatremia Current Visit: Yes Status: Acute Assessment and plan: Hypovolemic hyponatremia, likely secondary to decreased oral intake. Improved today. Continue gentle IVF. Now taking PO. Recheck BMP in AM. (10) DVT prophylaxis Current Visit: Yes Status: Acute Assessment and plan: Continue SQ heparin. - Time Spent With Patient Total time spent is greater than 50% in coordination of care (as documented) at patient's floor/unit and/or counseling patient: less than 15 minutes - Subjective Interval history: Patient had no acute events overnight. He is s/p 12 [place]ogolese abdominal drain placed in VIR today. Surgery plans for cholecystecomy after a few days of draining. He states that he is feeling "great." Abdominal pain is resolved. He denies nausea or vomiting. He denies fever, chills, chest pain, and SOB. He is eating diet in room today. He has no complaints at this time. - Constitutional Vitals: Temp Pulse Resp BP Pulse Ox 98.8 F 75 17 124/69 95 10/08/17 16:51 10/08/17 16:51 10/08/17 16:51 10/08/17 16:51 10/08/17 16:51 General appearance: Present: cooperative, A&O X 3, pleasant, no acute distress, answers questions appropriately - Respiratory Respiratory exam: Present: CTAB. Absent: accessory muscle use, rales, rhonchi, wheezes Additional comments: Normal WOB - Cardiovascular Cardiovascular exam: Present: RRR, +S1, +S2. Absent: diastolic murmur, gallop, rubs, systolic murmur Additional comments: No BLE edema - GI/Abdominal GI/Abdominal exam: Present: normal bowel sounds, soft. Absent: distended, hepatomegaly, mass, splenomegaly, tenderness - Psychiatric Psychiatric exam: Present: normal affect, normal mood. Absent: agitated, anxious, depressed - Skin Skin exam: Present: dry, warm. Absent: cyanosis, erythema, rash Internal Medicine: Result - Labs CBC & Chem 7: 10/08/17 03:37 10/08/17 03:37 Labs: Short CBC 10/08/17 Range/Units 03:37 WBC 20.7 H (4.3-11.1) K/mcL Hgb 13.4 (12.9-16.9) g/dL Hct 39.1 (37.5-50.1) % Plt Count 391 (140-400) K/mcL Neutrophils # 18.1 H (1.6-8.9) K/mcL BMP 10/08/17 03:37 Sodium 131 L Potassium 3.6 D Chloride 96 L Carbon Dioxide 27 BUN 41 H Creatinine 1.38 H Glucose 101 Calcium 9.2 Liver Function 10/08/17 Range/Units 03:37 Total Bilirubin 1.1 H (0.3-1.0) mg/dL AST 42 H (13-39) Units/L ALT 28 (7-52) Units/L Alkaline Phosphatase 151 H (34-104) Units/L Albumin 2.9 L (3.5-5.7) g/dL - ABG Interpretation ABG results: PT/INR, D-dimer PT 21.7 Seconds (9.4-12.1) H 10/08/17 13:27 - Impressions Impressions Liver Abscess Drainage CT 10/08/17 00:00 IMPRESSION: CT-guided abdominal drain placement as above. No immediate complications. Cultures are pending. D/ / 10/08/2017 13:35:54 Gelacio Topete MD / roverto Interpreting Provider: Gelacio Topete MD Consult Discharge Plan - Plan Referrals: Joel Menchaca MD [Non-Partnered Physician] - Marce Andres CNP [Primary Care Provider] - 10/16/17 1:00 pm
[2017-10-08] MEDS: 0.9 % Sodium Chloride 1,000 ML IVC SCH (18:07)
[2017-10-09] MEDS: MetroNIDAZOLE 500 MG/100 ML 500 MG/100 ML BAG IVPB SCH ×4 (00:02→23:24)
[2017-10-09 05:23] LABS: Basophils # 0.1 K/mcL (0.0-0.2); Basophils % 0.4 %; Eosinophils # 0.2 K/mcL (0.0-0.6); Eosinophils % 1.5 %; Hematocrit 36.1 % (37.5-50.1); Immature Granulocytes % 2.5 % (0-4); Lymphocytes # 1.3 K/mcL (0.6-4.6); Lymphocytes % 9.4 %; Mean Corpuscular HGB Conc 32.7 g/dL (31.6-35.5); Mean Corpuscular Hemoglobin 27.4 pg (28.0-33.3); Mean Corpuscular Volume 83.8 fL (83.0-100.0); Mean Platelet Volume 9.1 fL (9.4-12.4); Monocytes # 0.8 K/mcL (0.0-1.3); Monocytes % 5.8 %; Neutrophils # 10.9 K/mcL (1.6-8.9); Platelet Count 393 K/mcL (140-400); Red Blood Count 4.31 M/mcL (4.19-5.50); Segmented Neutrophils % 80.4 %
[2017-10-09 05:25] LABS: Hemoglobin 11.8 g/dL (12.9-16.9)
[2017-10-09 05:41] LABS: BUN/Creatinine Ratio 26 (6-26); Blood Urea Nitrogen 32 mg/dL (8-23); Calcium 8.3 mg/dL (8.6-10.3); Carbon Dioxide 28 mEq/L (23-29); Chloride 98 mEq/L (98-107); Glucose 97 mg/dL (70-105); Osmolality,Calculated 281 (280-300); Potassium 3.2 mEq/L (3.5-5.1); Sodium 132 mEq/L (136-145); eGFR For African Americans > 60 (> 60); eGFR For Non-African Americans 59 (> 60)
[2017-10-09] MEDS: 0.9 % Sodium Chloride 1,000 ML IVC SCH (11:11)
[2017-10-09] MEDS: Multivit/Ca/Min/Fe/FA 1 TAB TABLET PO SCH (15:00)
[2017-10-09] MEDS: Aspirin 325 MG TABLET PO SCH (15:00)
[2017-10-09] MEDS: Patient Taking Own Medication 1 EACH IH SCH (15:01)
[2017-10-09] MEDS: Budesonide/Formoterol 160/4.5 MDI IH SCH ×2 (15:22→20:05)
[2017-10-09] MEDS ORDERED: Isovue-370 500 ML INFUS..BTL IV ONE (15:47)
--- NOTE | 2017-10-09 15:54 | General Surgery Progress Note ---
Date of Encounter: 10/09/17 Time of Encounter: 15:48 Subjective Patient reports: feels better, still having pain Narrative: General Surgey - patient feeling better; able to consume regular diet; no N/V Remains afebrile, most recently 98.2, hemodynamically stable with pulse 68, respirations 17, blood pressure 102/62 - 22/64. Patient remains tender in the right upper quadrant. Percutaneously placed drai - approximately 120 mL yellow semisolid fluid. Laboratories: White count improved to 13.5; hemoglobin 11.8, hematocrit 36.1- likely diminished due to IV fluids Neutrophilia has also diminished to 10.9. Electrolytes notable for sodium of 132; potassium 3.2, BUN has improved to 32 , creatinine has corrected to 1.22; eGFR imrpoved to 59 Impression: 72-year-old male with likely perforated gallbladder Improved post-percutaneous drainage of the pericholecystic abscess\ Oxygen dependent COPD appears to be stable as do hypertension and hypothyroidism Hypokalemia - supplementation ordered Plan: Repeat CT in a.m. Surgery likely 10/11/17, dependent on CT findings to be repeated in AM Objective Vital Signs - Last 8 Hours Temp Pulse Resp BP Pulse Ox 10/09/17 15:22 18 92 10/09/17 11:45 98.2 F 68 17 102/62 90 10/09/17 07:54 98.1 F 65 17 121/71 Intake and Output 10/08/17 10/09/17 10/09/17 23:59 07:59 15:59 Intake Total 420 / 420 1100 / 1100 840 / 840 Output Total 320 / 320 50 / 50 20 / 20 Balance 100 / 100 1050 / 1050 820 / 820 Intake: IV Fluids 300 / 300 1100 / 1100 100 / 100 0.9 % Sodium Chloride 1,000 ML 1000 / 1000 @ 75 mls/hr IVC .[id number] [facility] Rx #:[id number] Cipro Premix 400 MG/200 ML 400 200 / 200 mg In 200 ml @ 200 mls/hr IVPB Q12H [facility] Rx#:[id number] Flagyl Premix 500 MG/100 ML 500 100 / 100 100 / 100 100 / 100 mg In 100 ml @ 100 mls/hr IVPB Q8H [facility] Rx#:[id number] Oral 120 / 120 740 / 740 Output: Urine 300 / 300 Wound Drainage 20 / 20 50 / 50 20 / 20 Right Upper Abdomen / 20 50 / 50 20 / 20 Other: Meal Dinner Lunch Percent of Meal Consumed 10% 30% - Labs 10/09/17 05:00 10/09/17 05:00 Diabetes panel 10/09/17 Range/Units 05:00 Sodium 132 L (136-145) mEq/L Potassium 3.2 L (3.5-5.1) mEq/L Chloride 98 (98-107) mEq/L Carbon Dioxide 28 (23-29) mEq/L BUN 32 H (8-23) mg/dL Creatinine 1.22 (0.70-1.30) mg/dL Glucose 97 (70-105) mg/dL Calcium 8.3 L (8.6-10.3) mg/dL Calcium panel 10/09/17 Range/Units 05:00 Calcium 8.3 L (8.6-10.3) mg/dL Pituitary panel 10/09/17 Range/Units 05:00 Sodium 132 L (136-145) mEq/L Potassium 3.2 L (3.5-5.1) mEq/L Chloride 98 (98-107) mEq/L Carbon Dioxide 28 (23-29) mEq/L BUN 32 H (8-23) mg/dL Creatinine 1.22 (0.70-1.30) mg/dL Glucose 97 (70-105) mg/dL Calcium 8.3 L (8.6-10.3) mg/dL Adrenal panel 10/09/17 Range/Units 05:00 Sodium 132 L (136-145) mEq/L Potassium 3.2 L (3.5-5.1) mEq/L Chloride 98 (98-107) mEq/L Carbon Dioxide 28 (23-29) mEq/L BUN 32 H (8-23) mg/dL Creatinine 1.22 (0.70-1.30) mg/dL Glucose 97 (70-105) mg/dL Calcium 8.3 L (8.6-10.3) mg/dL Consult Discharge Plan - Plan Referrals: Joel Menchaca MD [Non-Partnered Physician] - Marce Andres CNP [Primary Care Provider] - 10/16/17 1:00 pm
--- NOTE | 2017-10-09 18:34 | Internal Med Progress Note ---
Date of Encounter: 10/09/17 Time of Encounter: 17:27 - Assessment and plan (1) Liver abscess Current Visit: Yes Status: Acute Assessment and plan: Surgery consulted; appreciate input. S/P 12 Brazilian abdominal drain in VIR. Plan for cholecystectomy Saturday. Regular diet. Pain control. Continue IV cipro and IV flagyl. WBC trending down. (2) Perforated gallbladder Current Visit: Yes Status: Acute Assessment and plan: Management as per above. (3) Acute cholecystitis Current Visit: Yes Status: Acute Assessment and plan: Management as per above. (4) Severe sepsis Current Visit: Yes Status: Acute Assessment and plan: Improving. WBC decreasing. Continue IVF, IV cipro, and IV flagyl. Recheck labwork in AM. Monitor vitals closely. (5) CLYDE (acute kidney injury) Current Visit: Yes Status: Resolved Assessment and plan: Resolved. Continue IVF until good PO intake. Regular diet. Recheck BMP in AM. (6) Hypertension Current Visit: Yes Status: Chronic Assessment and plan: Continue PRN hydralazine. Qualifiers: Hypertension type: essential hypertension Qualified Code(s): I10 - Essential (primary) hypertension (7) Hypothyroidism Current Visit: Yes Status: Acute Assessment and plan: Continue home levothyroxine. Qualifiers: Hypothyroidism type: acquired Qualified Code(s): E03.9 - Hypothyroidism, unspecified (8) Hypokalemia Current Visit: Yes Status: Acute Assessment and plan: Give KCl 40 mEq PO once. Recheck BMP in AM. (9) Hyponatremia Current Visit: Yes Status: Acute Assessment and plan: Hypovolemic hyponatremia, likely secondary to decreased oral intake. Stable today. Continue gentle IVF. Now taking PO. Recheck BMP in AM. (10) DVT prophylaxis Current Visit: Yes Status: Acute Assessment and plan: Continue SQ heparin. - Time Spent With Patient Total time spent is greater than 50% in coordination of care (as documented) at patient's floor/unit and/or counseling patient: less than 15 minutes - Subjective Interval history: Patient had no acute events overnight. He is s/p 12 Brazilian abdominal drain placed in VIR yesterday; good drainage today. Surgery plans for cholecystecomy on Saturday. I personally discussed case with surgeon Dr. Menchaca today. He plans to obtain repeat CT abdomen/pelvis in AM and consider surgery on Saturday. Patient states that he is feeling "good." He is eating dinner in room today. He reports no abdominal pain. He denies nausea or vomiting. He denies fever, chills, chest pain, and SOB. He has no complaints at this time. - Constitutional Vitals: Temp Pulse Resp BP Pulse Ox 98.2 F 61 18 120/69 100 10/09/17 16:47 10/09/17 16:47 10/09/17 16:47 10/09/17 16:47 10/09/17 16:47 General appearance: Present: cooperative, A&O X 3, pleasant, no acute distress, answers questions appropriately - Respiratory Respiratory exam: Present: CTAB. Absent: accessory muscle use, rales, rhonchi, wheezes Additional comments: Normal WOB - Cardiovascular Cardiovascular exam: Present: RRR, +S1, +S2. Absent: diastolic murmur, gallop, rubs, systolic murmur Additional comments: No BLE edema - GI/Abdominal GI/Abdominal exam: Present: normal bowel sounds, soft. Absent: distended, hepatomegaly, mass, splenomegaly, tenderness - Psychiatric Psychiatric exam: Present: normal affect, normal mood. Absent: agitated, anxious, depressed - Skin Skin exam: Present: dry, warm. Absent: cyanosis, erythema, rash Internal Medicine: Result - Labs CBC & Chem 7: 10/09/17 05:00 10/09/17 05:00 Labs: Short CBC 10/09/17 Range/Units 05:00 WBC 13.5 H (4.3-11.1) K/mcL Hgb 11.8 L D (12.9-16.9) g/dL Hct 36.1 L (37.5-50.1) % Plt Count 393 (140-400) K/mcL Neutrophils # 10.9 H (1.6-8.9) K/mcL BMP 10/09/17 05:00 Sodium 132 L Potassium 3.2 L Chloride 98 Carbon Dioxide 28 BUN 32 H Creatinine 1.22 Glucose 97 Calcium 8.3 L - ABG Interpretation ABG results: PT/INR, D-dimer PT 21.7 Seconds (9.4-12.1) H 10/08/17 13:27 - VTE Documentation of Mechanical Device: Intermittent pneumatic compression device Consult Discharge Plan - Plan Referrals: Joel Menchaca MD [Non-Partnered Physician] - Marce Andres CNP [Primary Care Provider] - 10/16/17 1:00 pm
[2017-10-09] MEDS: Ipratropium/Albuterol Neb 3 ML AER PRN (20:05)
[2017-10-10] MEDS: 0.9 % Sodium Chloride 1,000 ML IVC SCH ×2 (02:47→16:51)
[2017-10-10 05:10] LABS: Basophils % 0.3 %; Eosinophils # 0.2 K/mcL (0.0-0.6); Eosinophils % 1.6 %; Hematocrit 38.1 % (37.5-50.1); Hemoglobin 12.3 g/dL (12.9-16.9); Immature Granulocytes % 2.2 % (0-4); Lymphocytes # 1.4 K/mcL (0.6-4.6); Lymphocytes % 11.4 %; Mean Corpuscular HGB Conc 32.3 g/dL (31.6-35.5); Mean Corpuscular Hemoglobin 27.4 pg (28.0-33.3); Mean Corpuscular Volume 84.9 fL (83.0-100.0); Mean Platelet Volume 9.1 fL (9.4-12.4); Monocytes # 0.6 K/mcL (0.0-1.3); Monocytes % 5.2 %; Neutrophils # 9.7 K/mcL (1.6-8.9); Platelet Count 449 K/mcL (140-400); Red Blood Count 4.49 M/mcL (4.19-5.50); Red Cell Distribution Width 15.2 % (11.5-14.5); Segmented Neutrophils % 79.3 %
[2017-10-10 05:32] LABS: BUN/Creatinine Ratio 24 (6-26); Blood Urea Nitrogen 23 mg/dL (8-23); Calcium 7.8 mg/dL (8.6-10.3); Carbon Dioxide 24 mEq/L (23-29); Chloride 101 mEq/L (98-107); Glucose 84 mg/dL (70-105); Osmolality,Calculated 281 (280-300); Potassium 3.8 mEq/L (3.5-5.1); Sodium 134 mEq/L (136-145); eGFR For African Americans > 60 (> 60); eGFR For Non-African Americans > 60 (> 60)
[2017-10-10] MEDS: Ipratropium/Albuterol Neb 3 ML AER PRN (07:38)
[2017-10-10] MEDS: Budesonide/Formoterol 160/4.5 MDI IH SCH ×2 (07:38→20:30)
[2017-10-10] MEDS: Multivit/Ca/Min/Fe/FA 1 TAB TABLET PO SCH (08:09)
[2017-10-10] MEDS: Patient Taking Own Medication 1 EACH IH SCH (08:09)
[2017-10-10] MEDS: MetroNIDAZOLE 500 MG/100 ML 500 MG/100 ML BAG IVPB SCH ×2 (08:09→16:48)
[2017-10-10] MEDS: Aspirin 325 MG TABLET PO SCH (08:09)
--- NOTE | 2017-10-10 13:27 | General Surgery Progress Note ---
Date of Encounter: 10/10/17 Time of Encounter: 13:00 Subjective Patient reports: feels better, still having pain Narrative: General Surgery - Repeat CT abdomen/pelvis reviewed with [facility]. This shows significant improvement. Findings include no pleural effusion; interval placement of drainage catheter into the gallbladder fossa with effective evacuation of perihepatic fluid. Mild pericholecystic fluid persist with gallbladder wall thickening. Multiple gallstones are evident. No further extraluminal air or intraperitoneal air identified. The bowel pattern previously described involving the ascending, hepatic, and proximal transverse colon appears improved as well. The patient remains afebrile and hemodynamically stable. Temperature 98.0, pulse 64, respirations 18, blood pressure 116/69 Lungs: Clear bilaterally Abdomen: Persistent right upper quadrant tenderness though no discernible masses. There is sufficient guarding to limits the examination of the abdomen Laboratories: White count continues to improve, 12.3; hemoglobin 12.3 with hematocrit 38.1; platelet count 449,000. Neutrophilia also continues to improve at 9.7. Sodium 134, hypokalemia resolved, 3.8; BUN 23, creatinine 0.96 with estimated GFR greater than 60. Impression: Acute perforated cholecystitis, cholelithiasis with pericholecystic/ perihepatic abscess. Effective percutaneous drainage Renal status has returned to normal Patient tolerating a regular diet Sufficient recovery to proceed with open cholecystectomy in a.m. The surgery planned for tomorrow was extensively discussed with the patient and his family in attendance. Risks of surgery include hemorrhage, infection, intra- abdominal abscess, injury to adjacent ducts, vessels, organs, bowel; risk of respiratory complications such as pneumonia or acute respiratory failure/hypoxia ; cardiac risks including dysrhythmia and TN. Should the patient demonstrate any hemodynamic instability during surgery, respiratory failure/hypoxia, cardiac dysrhythmia then postoperative transferred to ICU will be considered. The patient and his extended family expressed understanding. Surgical consent has been obtained from the patient. Objective Vital Signs - Last 8 Hours Temp Pulse Resp BP Pulse Ox 10/10/17 11:55 98.0 F 64 18 116/69 99 10/10/17 11:15 62 10/10/17 08:14 64 96 10/10/17 07:38 16 96 10/10/17 07:13 97.8 F 71 18 126/84 100 Intake and Output 10/09/17 10/10/17 10/10/17 23:59 07:59 15:59 Intake Total 300 / 300 1100 / 1100 1180 / 1180 Output Total 40 / 40 20 / 20 30 / 30 Balance 260 / 260 1080 / 1080 1150 / 1150 Intake: IV Fluids 300 / 300 1100 / 1100 100 / 100 0.9 % Sodium Chloride 1,000 ML 1000 / 1000 @ 75 mls/hr IVC .[id number] [facility] Rx #:[id number] Cipro Premix 400 MG/200 ML 400 200 / 200 mg In 200 ml @ 200 mls/hr IVPB Q12H [facility] Rx#:[id number] Flagyl Premix 500 MG/100 ML 500 100 / 100 100 / 100 100 / 100 mg In 100 ml @ 100 mls/hr IVPB Q8H [facility] Rx#:[id number] Oral 1080 / 1080 Output: Wound Drainage 40 / 40 / 20 30 / 30 Right Upper Abdomen 40 / 40 / 20 30 / 30 Other: Meal Dinner Breakfast Percent of Meal Consumed 100% 50% # Voids 2 Weight 87.6 kg Patient Weight 10/10/17 23:59 Weight 87.6 kg - Labs 10/10/17 04:16 10/10/17 04:16 Diabetes panel 10/10/17 Range/Units 04:16 Sodium 134 L (136-145) mEq/L Potassium 3.8 (3.5-5.1) mEq/L Chloride 101 (98-107) mEq/L Carbon Dioxide 24 (23-29) mEq/L BUN 23 (8-23) mg/dL Creatinine 0.96 (0.70-1.30) mg/dL Glucose 84 (70-105) mg/dL Calcium 7.8 L (8.6-10.3) mg/dL Calcium panel 10/10/17 Range/Units 04:16 Calcium 7.8 L (8.6-10.3) mg/dL Pituitary panel 10/10/17 Range/Units 04:16 Sodium 134 L (136-145) mEq/L Potassium 3.8 (3.5-5.1) mEq/L Chloride 101 (98-107) mEq/L Carbon Dioxide 24 (23-29) mEq/L BUN 23 (8-23) mg/dL Creatinine 0.96 (0.70-1.30) mg/dL Glucose 84 (70-105) mg/dL Calcium 7.8 L (8.6-10.3) mg/dL Adrenal panel 10/10/17 Range/Units 04:16 Sodium 134 L (136-145) mEq/L Potassium 3.8 (3.5-5.1) mEq/L Chloride 101 (98-107) mEq/L Carbon Dioxide 24 (23-29) mEq/L BUN 23 (8-23) mg/dL Creatinine 0.96 (0.70-1.30) mg/dL Glucose 84 (70-105) mg/dL Calcium 7.8 L (8.6-10.3) mg/dL - VTE Documentation of Mechanical Device: Intermittent pneumatic compression device Consult Discharge Plan - Plan Referrals: Joel Menchaca MD [Non-Partnered Physician] - Marce Andres CNP [Primary Care Provider] - 10/16/17 1:00 pm
--- NOTE | 2017-10-10 16:53 | Internal Med Progress Note ---
Date of Encounter: 10/10/17 Time of Encounter: 16:51 - Assessment and plan (1) Liver abscess Current Visit: Yes Status: Acute Assessment and plan: Surgery consulted; appreciate input. S/P 12 [place] abdominal drain in VIR. Plan for cholecystectomy tomorrow. Regular diet; NPO after midnight. Pain control. Continue IV cipro and IV flagyl. WBC trending down. (2) Perforated gallbladder Current Visit: Yes Status: Acute Assessment and plan: Management as per above. (3) Acute cholecystitis Current Visit: Yes Status: Acute Assessment and plan: Management as per above. (4) Severe sepsis Current Visit: Yes Status: Resolved Assessment and plan: Resolved. WBC decreasing. Continue IVF, IV cipro, and IV flagyl. Recheck labwork in AM. Monitor vitals closely. (5) CLYDE (acute kidney injury) Current Visit: Yes Status: Resolved Assessment and plan: Resolved. Continue IVF until good PO intake. Regular diet; NPO after midnight. Recheck BMP in AM. (6) Hypertension Current Visit: Yes Status: Chronic Assessment and plan: Continue PRN hydralazine. Qualifiers: Hypertension type: essential hypertension Qualified Code(s): I10 - Essential (primary) hypertension (7) Hypothyroidism Current Visit: Yes Status: Chronic Assessment and plan: Continue home levothyroxine. Qualifiers: Hypothyroidism type: acquired Qualified Code(s): E03.9 - Hypothyroidism, unspecified (8) Hypokalemia Current Visit: Yes Status: Resolved Assessment and plan: Resolved. Recheck BMP in AM. (9) Hyponatremia Current Visit: Yes Status: Acute Assessment and plan: Hypovolemic hyponatremia, likely secondary to decreased oral intake. Improved today. Continue gentle IVF. Now taking PO. Recheck BMP in AM. (10) DVT prophylaxis Current Visit: Yes Status: Acute Assessment and plan: Discontinued SQ heparin in preparation for surgery tomorrow. Continue SCDs. - Time Spent With Patient Total time spent is greater than 50% in coordination of care (as documented) at patient's floor/unit and/or counseling patient: less than 15 minutes - Subjective Interval history: Patient had no acute events overnight. Patient states that he is feeling "great." He reports no abdominal pain. He denies nausea or vomiting. He denies fever, chills, chest pain, and SOB. He has no complaints at this time. - Constitutional Vitals: Temp Pulse Resp BP Pulse Ox 98.2 F 68 18 120/69 98 10/10/17 16:18 10/10/17 16:18 10/10/17 16:18 10/10/17 16:18 10/10/17 16:18 General appearance: Present: cooperative, A&O X 3, pleasant, no acute distress, answers questions appropriately - Respiratory Respiratory exam: Present: CTAB. Absent: accessory muscle use, rales, rhonchi, wheezes Additional comments: Normal WOB - Cardiovascular Cardiovascular exam: Present: RRR, +S1, +S2. Absent: diastolic murmur, gallop, rubs, systolic murmur Additional comments: No BLE edema - GI/Abdominal GI/Abdominal exam: Present: normal bowel sounds, soft. Absent: distended, hepatomegaly, mass, splenomegaly, tenderness - Psychiatric Psychiatric exam: Present: normal affect, normal mood. Absent: agitated, anxious, depressed - Skin Skin exam: Present: dry, warm. Absent: cyanosis, erythema, rash Internal Medicine: Result - Labs CBC & Chem 7: 10/10/17 04:16 10/10/17 04:16 Labs: Short CBC 10/10/17 Range/Units 04:16 WBC 12.3 H (4.3-11.1) K/mcL Hgb 12.3 L (12.9-16.9) g/dL Hct 38.1 (37.5-50.1) % Plt Count 449 H (140-400) K/mcL Neutrophils # 9.7 H (1.6-8.9) K/mcL BMP 10/10/17 04:16 Sodium 134 L Potassium 3.8 Chloride 101 Carbon Dioxide 24 BUN 23 Creatinine 0.96 Glucose 84 Calcium 7.8 L - ABG Interpretation ABG results: PT/INR, D-dimer PT 21.7 Seconds (9.4-12.1) H 10/08/17 13:27 - Impressions Impressions Abdomen/Pelvis CT 10/10/17 09:30 IMPRESSION: 1. Interval placement of drainage catheter in perihepatic fluid collection/abscess. The previously seen fluid collection has resolved. 2. Persistent gallbladder wall thickening and pericholecystic fluid, slightly improved compared to the CT of October 07, 2017. Multiple stones are seen in the gallbladder lumen. 3. Fatty hypertrophy of the colonic submucosa noted in the ascending colon. Although nondiagnostic, this can be seen in the setting of chronic inflammation. D/ / 10/10/2017 11:22:42 Sami Alba MD / [email or web address] Interpreting Provider: Sami Alba MD - VTE Documentation of Mechanical Device: Intermittent pneumatic compression device Consult Discharge Plan - Plan Referrals: Joel Menchaca MD [Non-Partnered Physician] - Marce Andres CNP [Primary Care Provider] - 10/16/17 1:00 pm
[2017-10-11] MEDS: MetroNIDAZOLE 500 MG/100 ML 500 MG/100 ML BAG IVPB SCH ×3 (00:50→23:30)
[2017-10-11 04:47] LABS: Basophils # 0.1 K/mcL (0.0-0.2); Basophils % 0.7 %; Eosinophils # 0.3 K/mcL (0.0-0.6); Eosinophils % 3.3 %; Hematocrit 38.6 % (37.5-50.1); Hemoglobin 12.5 g/dL (12.9-16.9); Immature Granulocytes % 2.4 % (0-4); Lymphocytes # 1.3 K/mcL (0.6-4.6); Lymphocytes % 12.9 %; Mean Corpuscular HGB Conc 32.4 g/dL (31.6-35.5); Mean Corpuscular Hemoglobin 27.5 pg (28.0-33.3); Mean Platelet Volume 8.8 fL (9.4-12.4); Monocytes # 0.7 K/mcL (0.0-1.3); Monocytes % 6.9 %; Neutrophils # 7.2 K/mcL (1.6-8.9); Platelet Count 456 K/mcL (140-400); Red Blood Count 4.54 M/mcL (4.19-5.50); Red Cell Distribution Width 15.6 % (11.5-14.5); Segmented Neutrophils % 73.8 %
[2017-10-11 05:08] LABS: BUN/Creatinine Ratio 15 (6-26); Blood Urea Nitrogen 14 mg/dL (8-23); Calcium 7.3 mg/dL (8.6-10.3); Carbon Dioxide 26 mEq/L (23-29); Chloride 105 mEq/L (98-107); Glucose 86 mg/dL (70-105); Osmolality,Calculated 282 (280-300); Potassium 3.8 mEq/L (3.5-5.1); Sodium 136 mEq/L (136-145); eGFR For African Americans > 60 (> 60); eGFR For Non-African Americans > 60 (> 60)
[2017-10-11] MEDS ORDERED: *HR* FentaNYL (PF) 100 MCG/2 ML VIAL ONE (07:05)
[2017-10-11] MEDS ORDERED: Lidocaine -MPF 2% 2 ML VIAL ONE (07:05)
[2017-10-11] MEDS ORDERED: Ondansetron 4 MG/2 ML VIAL ONE (07:05)
[2017-10-11] MEDS ORDERED: *HR* Rocuronium Bromide 50 MG/5 ML VIAL ONE (07:05)
[2017-10-11] MEDS ORDERED: Lidocaine -MPF 4% 5 ML AMPUL ONE (07:05)
[2017-10-11] MEDS ORDERED: *HR* Propofol 200 MG/20 ML VIAL IVP ONE (07:05)
[2017-10-11] MEDS ORDERED: Dexamethasone 4 MG/ML VIAL ONE (07:05)
[2017-10-11] MEDS ORDERED: Bupivacaine/EPI 1:200k 0.25%PF 30 ML VIAL ONE (07:14)
[2017-10-11] MEDS ORDERED: Isovue-300 50 ML VIAL IVP ONE (07:14)
[2017-10-11] MEDS ORDERED: Albuterol 2.5 MG/3 ML NEBULIZER IH ONE (07:20)
--- NOTE | 2017-10-11 07:24 | Anesthesia Evaluation PreOp ---
Date of Encounter: 10/11/17 Time of Encounter: 07:10 - Past History Planned Operation: Lap Cholecystectomy Cardiac History: HTN, Hyperlipidemia Pulmonary History: COPD (on oxygen at night) SALES APPOINTMENT COORDINATOR History: Denies Any Significant HX Other Medical History: Hepatic (Liver Abscess), Thyroid Anesthesia History: No Prior Anesthetic Complications Alcohol Use: rarely Drug use: none Medications and Allergies Aspirin 325 mg PO DAILY 09/11/16 [History] Multivit,Th Iron,Other Min [Thera-M] 1 tab PO DAILY 09/11/16 [History] Albuterol Sulfate [Albuterol Inhaler] 2 puff IH Q4-6H PRN 04/11/17 [History] Hydrochlorothiazide [Microzide] 12.5 mg PO DAILY 04/11/17 [History] Budesonide/Formoterol 160/4.5 [Symbicort 160/4.5] 2 puff IH BIDR 30 Days hfa.aer.ad 04/15/17 [Rx] Levothyroxine [Synthroid] 125 mcg PO DAILY@0630 #30 tablet 04/15/17 [Rx] Cyclobenzaprine [Flexeril] 10 mg PO TID 10/08/17 [History] Umeclidinium [place] [Incruse Ellipta] 1 puff IH DAILY 10/08/17 [History] 3 Allergy/AdvReac Type Severity Reaction Status Date / Time Penicillins [PCN] Allergy Hives Verified 10/08/17 08:36 - Meds/Allergy Pre-op Review Medications Reviewed: Yes Allergies Reviewed: Yes Beta Blockers on Current Med List: No Anesthesia Results - Labs 10/11/17 04:32 10/11/17 04:32 - Imaging EKG: report reviewed (SR) Anesthesia Exam Vital Signs/O2 Sat/Glucose, Most Current Temp Pulse Resp BP Pulse Ox 10/11/17 06:54 98.3 F 69 18 104/55 99 10/11/17 04:00 62 10/11/17 03:39 97.8 F 65 17 120/75 99 - HEENT Pupil (Motor): Pupils equal Mallampati: III Teeth: Missing Oral Opening: Less than or equal to 3 - SALES APPOINTMENT COORDINATOR LOC: Oriented SALES APPOINTMENT COORDINATOR Motor: Normal RUE, Normal LUE, Normal RLE, Normal LLE, Normal Face SALES APPOINTMENT COORDINATOR Sensory: Normal: RUE, LUE, RLE, LLE, Face - Cardiac Rhythm: Regular Murmur: None JVD: No Carotid Bruit: No - Pulmonary Breath Sounds: bilateral Clear Respiratory Effort: Symmetrical Anesthesia Assess/Plan ASA Score: 3 Modified [place] Scale for Level of Consciousness: Cooperative, oriented, and tranquil Anesthetic Plan: General Monitoring Plan: Standard Monitors Recovery Plan: PACU (Discussed GA, agrees to proceed)
[2017-10-11] MEDS: Budesonide/Formoterol 160/4.5 MDI IH SCH ×2 (07:28→22:52)
[2017-10-11] MEDS ORDERED: *HR* Morphine 10 MG/ML VIAL ONE (07:45)
[2017-10-11] MEDS ORDERED: Neostigmine Methylsulfate 3 MG/3 ML SYRINGE ONE (08:36)
[2017-10-11] MEDS ORDERED: Bupivacaine-MPF 0.25% 10 ML VIAL ONE (08:45)
[2017-10-11] MEDS ORDERED: Ringers Solution, Lactated 500 ML IVC ONE (09:11)
--- NOTE | 2017-10-11 09:13 | Operative Note ---
Date of procedure: 10/11/17 Pre-op diagnosis: acute cholecystitis with perforation, cholelithiasis Post-op diagnosis: same Procedure: open cholecystectomy Complications: none apparent Anesthesia: GETA Local Anesthetics: 0.25% Sensorcaine HCL with Epinephrine 1:200,000 SubQ (cc) ( 40 mL) Surgeon: Joel Menchaca Was there an production assistant present: No Food And Nutrition Professor Other: DOREEN Bustillos Estimated blood loss (cc): 200 IV fluids (cc): 800 Specimen: gallbladder; aerobic and anaerobic cultures Condition: stable Disposition: PACU
[2017-10-11] MEDS ORDERED: *HR* Morphine 2 MG/ML SYRINGE IVP PRN (09:23)
[2017-10-11] MEDS ORDERED: Ondansetron 4 MG/2 ML VIAL IVP ONE (09:23)
[2017-10-11] MEDS ORDERED: Ringers Solution, Lactated 1,000 ML ONE (09:31)
[2017-10-11] MEDS: Aspirin 325 MG TABLET PO SCH (10:20)
[2017-10-11] MEDS: Multivit/Ca/Min/Fe/FA 1 TAB TABLET PO SCH (10:20)
[2017-10-11] MEDS ORDERED: Acetaminophen 325 MG TABLET PO PRN (10:23)
[2017-10-11] MEDS ORDERED: Naloxone 0.4 MG/ML INJ IVP PRN (10:23)
[2017-10-11] MEDS ORDERED: *HR* OxyCODONE Immed Rel 5 MG TABLET PO PRN (10:23)
[2017-10-11] MEDS ORDERED: Ondansetron 4 MG/2 ML VIAL IVP PRN (10:23)
[2017-10-11] MEDS: Ipratropium/Albuterol Neb 3 ML AER SCH ×4 (11:04→22:52)
--- NOTE | 2017-10-11 15:32 | Anesthesia Evaluation Post Op ---
Date of Encounter: 10/11/17 Time of Encounter: 10:00 - Vital Signs Vital Signs: Vital Signs Vital Signs Temp Pulse Resp BP Pulse Ox 10/11/17 09:57 97.5 F L 69 20 131/74 100 10/11/17 09:47 97.6 F 68 20 137/77 100 10/11/17 09:37 70 22 139/78 100 10/11/17 09:27 70 22 159/74 100 10/11/17 09:17 97.3 F L 60 22 126/66 100 Intake and Output - Lungs Lungs: Clear Ascult./Percussion - Airway Airway: Non-obstructed - Cardiovascular Regular Rate - Mental Status Mental Status: Alert & Oriented, Answers Appropriately - Pain Pain Scale: 1 Pain Scale used: Jones-Banks (Faces) - Nausea Vomiting Nausea Vomiting: Not Present - Hydration Hydration: Tolerates oral liquids - Discharge PostOp Status: Transfer Patient to floor Anes Supervising Prov Stmt: Pt seen/evaluated, VSS And pt has met criteria for discharge to floor. - MD Rich
[2017-10-11] MEDS ORDERED: *HR* OxyCODONE Immed Rel 5 MG TABLET PO SCH (16:00)
[2017-10-11] MEDS ORDERED: *HR* FentaNYL (PF) 100 MCG/2 ML VIAL IVP STA (17:18)
[2017-10-11] MEDS ORDERED: *HR* FentaNYL (PF) 100 MCG/2 ML VIAL IVP PRN (17:18)
--- NOTE | 2017-10-11 17:23 | Internal Med Progress Note ---
Date of Encounter: 10/11/17 Time of Encounter: 17:20 - Assessment and plan (1) Liver abscess Current Visit: Yes Status: Acute Assessment and plan: Surgery consulted; appreciate input. He is POD #0 s/p open cholecystecomy. S/ P 12 [place] abdominal drain in VIR. Restart regular diet. Pain control; will add IV fentanyl for breakthrough pain. Continue IV cipro and IV flagyl. WBC trending down. (2) Perforated gallbladder Current Visit: Yes Status: Acute Assessment and plan: Management as per above. (3) Acute cholecystitis Current Visit: Yes Status: Acute Assessment and plan: Management as per above. (4) Severe sepsis Current Visit: Yes Status: Resolved Assessment and plan: Resolved. WBC decreasing. Continue IV cipro and IV flagyl. Recheck labwork in AM. Monitor vitals closely. (5) CLYDE (acute kidney injury) Current Visit: Yes Status: Resolved Assessment and plan: Resolved. Restart regular diet. Recheck BMP in AM. (6) Hypertension Current Visit: Yes Status: Chronic Assessment and plan: Continue PRN hydralazine. Qualifiers: Hypertension type: essential hypertension Qualified Code(s): I10 - Essential (primary) hypertension (7) Hypothyroidism Current Visit: Yes Status: Chronic Assessment and plan: Continue home levothyroxine. Qualifiers: Hypothyroidism type: acquired Qualified Code(s): E03.9 - Hypothyroidism, unspecified (8) Hypokalemia Current Visit: Yes Status: Resolved Assessment and plan: Resolved. Recheck BMP in AM. (9) Hyponatremia Current Visit: Yes Status: Resolved Assessment and plan: Resolved. Restart regular diet. Recheck BMP in AM. (10) DVT prophylaxis Current Visit: Yes Status: Acute Assessment and plan: Restart SQ heparin and continue SCDs. - Time Spent With Patient Total time spent is greater than 50% in coordination of care (as documented) at patient's floor/unit and/or counseling patient: less than 15 minutes - Subjective Interval history: Patient had no acute events overnight. He is POD #0 s/p open cholecystecomy. He reports significant abdominal pain with movement. He denies nausea or vomiting. He denies fever, chills, chest pain, and SOB. He has no other complaints at this time. - Constitutional Vitals: Temp Pulse Resp BP Pulse Ox 97.9 F 72 18 135/78 100 10/11/17 16:31 10/11/17 16:31 10/11/17 16:31 10/11/17 16:31 10/11/17 16:31 General appearance: Present: cooperative, A&O X 3, pleasant, no acute distress, answers questions appropriately - Respiratory Respiratory exam: Present: CTAB. Absent: accessory muscle use, rales, rhonchi, wheezes Additional comments: Normal WOB - Cardiovascular Cardiovascular exam: Present: RRR, +S1, +S2. Absent: diastolic murmur, gallop, rubs, systolic murmur Additional comments: No BLE edema - GI/Abdominal GI/Abdominal exam: Present: hypoactive bowel sounds, soft. Absent: distended, hepatomegaly, mass, splenomegaly Additional comments: Moderate TTP diffusely across abdomen, surgical scars with bandaging present on abdomen, drain in place with bloody output - Psychiatric Psychiatric exam: Present: normal affect, normal mood. Absent: agitated, anxious, depressed - Skin Skin exam: Present: dry, intact, warm. Absent: cyanosis, rash Internal Medicine: Result - Labs CBC & Chem 7: 10/11/17 04:32 10/11/17 04:32 Labs: Short CBC 10/11/17 Range/Units 04:32 WBC 9.8 (4.3-11.1) K/mcL Hgb 12.5 L (12.9-16.9) g/dL Hct 38.6 (37.5-50.1) % Plt Count 456 H (140-400) K/mcL Neutrophils # 7.2 (1.6-8.9) K/mcL BMP 10/11/17 04:32 Sodium 136 Potassium 3.8 Chloride 105 Carbon Dioxide 26 BUN 14 Creatinine 0.94 Glucose 86 Calcium 7.3 L - ABG Interpretation ABG results: PT/INR, D-dimer PT 21.7 Seconds (9.4-12.1) H 10/08/17 13:27 - Impressions Impressions Abdomen/Pelvis CT 10/10/17 09:30 IMPRESSION: 1. Interval placement of drainage catheter in perihepatic fluid collection/abscess. The previously seen fluid collection has resolved. 2. Persistent gallbladder wall thickening and pericholecystic fluid, slightly improved compared to the CT of October 07, 2017. Multiple stones are seen in the gallbladder lumen. 3. Fatty hypertrophy of the colonic submucosa noted in the ascending colon. Although nondiagnostic, this can be seen in the setting of chronic inflammation. D/ / 10/10/2017 11:22:42 Sami Alba MD / karly Interpreting Provider: Sami Alba MD Consult Discharge Plan - Plan Referrals: Joel Menchaca MD [Non-Partnered Physician] - Marce Andres CNP [Primary Care Provider] - 10/16/17 1:00 pm
[2017-10-11] MEDS: *HR* Heparin 5,000 UNIT/ML VIAL SQ SCH (18:35)
[2017-10-11] MEDS: *HR* OxyCODONE Immed Rel 5 MG TABLET PO PRN ×2 (19:47→23:42)
[2017-10-12 04:09] LABS: Basophils # 0.1 K/mcL (0.0-0.2); Basophils % 0.4 %; Eosinophils # 0.1 K/mcL (0.0-0.6); Eosinophils % 0.3 %; Hematocrit 38.6 % (37.5-50.1); Hemoglobin 12.5 g/dL (12.9-16.9); Immature Granulocytes % 2.2 % (0-4); Lymphocytes # 1.6 K/mcL (0.6-4.6); Lymphocytes % 8.4 %; Mean Corpuscular HGB Conc 32.4 g/dL (31.6-35.5); Mean Corpuscular Hemoglobin 27.6 pg (28.0-33.3); Mean Corpuscular Volume 85.2 fL (83.0-100.0); Monocytes # 1.3 K/mcL (0.0-1.3); Monocytes % 6.8 %; Platelet Count 591 K/mcL (140-400); Red Blood Count 4.53 M/mcL (4.19-5.50); Red Cell Distribution Width 15.9 % (11.5-14.5); Segmented Neutrophils % 81.9 %
[2017-10-12 04:11] LABS: Neutrophils # 15.2 K/mcL (1.6-8.9)
[2017-10-12] MEDS: Ipratropium/Albuterol Neb 3 ML AER SCH ×5 (04:23→20:36)
[2017-10-12 04:47] LABS: Alanine Aminotransferase 53 Units/L (7-52); Albumin 2.6 g/dL (3.5-5.7); Albumin/Globulin Ratio 0.7 (1.1-2.2); Alkaline Phosphatase 187 Units/L (34-104); Aspartate Amino Transferase 190 Units/L (13-39); BUN/Creatinine Ratio 15 (6-26); Bilirubin,Total 0.5 mg/dL (0.3-1.0); Blood Urea Nitrogen 19 mg/dL (8-23); Calcium 7.5 mg/dL (8.6-10.3); Carbon Dioxide 25 mEq/L (23-29); Chloride 100 mEq/L (98-107); Glucose 139 mg/dL (70-105); Osmolality,Calculated 277 (280-300); Potassium 4.8 mEq/L (3.5-5.1); Sodium 131 mEq/L (136-145); Total Protein 6.6 g/dL (6.4-8.9); eGFR For African Americans > 60 (> 60); eGFR For Non-African Americans 56 (> 60)
[2017-10-12] MEDS: *HR* Heparin 5,000 UNIT/ML VIAL SQ SCH ×2 (05:34→17:22)
[2017-10-12] MEDS: *HR* OxyCODONE Immed Rel 5 MG TABLET PO PRN (05:35)
[2017-10-12] MEDS: Multivit/Ca/Min/Fe/FA 1 TAB TABLET PO SCH (08:58)
[2017-10-12] MEDS: MetroNIDAZOLE 500 MG/100 ML 500 MG/100 ML BAG IVPB SCH ×2 (08:58→10:18)
[2017-10-12] MEDS: Aspirin 325 MG TABLET PO SCH (08:58)
[2017-10-12] MEDS: Budesonide/Formoterol 160/4.5 MDI IH SCH ×2 (09:33→20:36)
[2017-10-12] MEDS: 0.9 % Sodium Chloride 1,000 ML IVC SCH (10:19)
--- NOTE | 2017-10-12 11:05 | General Surgery Progress Note ---
Date of Encounter: 10/12/17 Time of Encounter: 10:57 Subjective Patient reports: still having pain, pain is less Narrative: General Surgery - POD #1 Patient seated at bedside; he describes feeling significantly better than preop. The patient has remained afebrile since surgery, currently 98.7; pulse 86, respirations 18-20, blood pressure 110/75. Lungs: Clear to auscultation though right upper quadrant abdominal pain occurs at end of inspiration; SPO2 on 2 L/m nasal cannula 97 - 99% Abdomen: Soft with right upper quadrant/anushka-incisional tenderness as expected. Active bowel sounds. Incision clean and dry; dressing removed. MERCEDES: Approximately 90 mL postop (10/11/17; 15 mL sanguinous fluid so far today Urine output: 600 mL for calendar day 10/11/17; 500 mL so far today Labs: White count 18.5; neutrophils 15.2% - likely response to surgery; hemoglobin 12.5, hematocrit 38.6, platelet count 591,000. Sodium 131, potassium 4.8, BUN 19, creatinine 1.27, estimated GFR 56 Bilirubin 0.5, AST 190, ALT 53, alkaline phosphatase 187. The elevated LFTs most likely represent response to surgery Pathology and operative cultures pending; preoperative cultures showed Escherichia coli and Citrobacter fundii - both sensitive to ciprofloxacin Impression: Postoperative day #1 status post open cholecystectomy with drainage of pericholecystic abscess related to suspected acute perforated cholecystitis, cholelithiasis. Oxygen dependent COPD - status appears stable Acceptable postoperative status Leukocytosis noted, likely response to surgery and is expected to resolve with additional recovery Hyponatremia - no detected sequela, continue to monitor Plan: Recheck labs in a.m. Discontinue metronidazole Continue ciprofloxacin Objective Vital Signs - Last 8 Hours Temp Pulse Resp BP Pulse Ox 10/12/17 09:35 20 110/75 99 10/12/17 07:00 98.7 F 86 20 110/75 97 10/12/17 04:23 18 98 10/12/17 04:06 98.5 F 90 18 137/70 99 Intake and Output 10/11/17 10/12/17 10/12/17 23:59 07:59 15:59 Intake Total 420 / 420 1100 / 1100 120 / 120 Output Total 310 / 310 500 / 500 15 / 15 Balance 110 / 110 600 / 600 105 / 105 Intake: IV Fluids 300 / 300 300 / 300 Cipro Premix 400 MG/200 ML 400 200 / 200 200 / 200 mg In 200 ml @ 200 mls/hr IVPB Q12H [facility] Rx#:[id number] Flagyl Premix 500 MG/100 ML 500 100 / 100 100 / 100 mg In 100 ml @ 100 mls/hr IVPB Q8H [facility] [place] Rx#:[id number] Oral 120 / 120 800 / 800 120 / 120 Output: Urine 300 / 300 500 / 500 Wound Drainage Right Lower Abdomen Other: Meal Dinner Breakfast Percent of Meal Consumed 5% 10% # Bowel Movements 1 Weight 92.4 kg Patient Weight 10/12/17 23:59 Weight 92.4 kg - Labs 10/12/17 03:37 10/12/17 03:37 Diabetes panel 10/12/17 Range/Units 03:37 Sodium 131 L (136-145) mEq/L Potassium 4.8 D (3.5-5.1) mEq/L Chloride 100 (98-107) mEq/L Carbon Dioxide 25 (23-29) mEq/L BUN 19 (8-23) mg/dL Creatinine 1.27 (0.70-1.30) mg/dL Glucose 139 H (70-105) mg/dL Calcium 7.5 L (8.6-10.3) mg/dL AST 190 H (13-39) Units/L ALT 53 H (7-52) Units/L Alkaline Phosphatase 187 H (34-104) Units/L Albumin 2.6 L (3.5-5.7) g/dL Calcium panel 10/12/17 Range/Units 03:37 Calcium 7.5 L (8.6-10.3) mg/dL Albumin 2.6 L (3.5-5.7) g/dL Pituitary panel 10/12/17 Range/Units 03:37 Sodium 131 L (136-145) mEq/L Potassium 4.8 D (3.5-5.1) mEq/L Chloride 100 (98-107) mEq/L Carbon Dioxide 25 (23-29) mEq/L BUN 19 (8-23) mg/dL Creatinine 1.27 (0.70-1.30) mg/dL Glucose 139 H (70-105) mg/dL Calcium 7.5 L (8.6-10.3) mg/dL Adrenal panel 10/12/17 Range/Units 03:37 Sodium 131 L (136-145) mEq/L Potassium 4.8 D (3.5-5.1) mEq/L Chloride 100 (98-107) mEq/L Carbon Dioxide 25 (23-29) mEq/L BUN 19 (8-23) mg/dL Creatinine 1.27 (0.70-1.30) mg/dL Glucose 139 H (70-105) mg/dL Calcium 7.5 L (8.6-10.3) mg/dL Total Bilirubin 0.5 (0.3-1.0) mg/dL AST 190 H (13-39) Units/L ALT 53 H (7-52) Units/L Alkaline Phosphatase 187 H (34-104) Units/L Albumin 2.6 L (3.5-5.7) g/dL - VTE Documentation of Mechanical Device: Intermittent pneumatic compression device Consult Discharge Plan - Plan Referrals: Joel Menchaca MD [Non-Partnered Physician] - Marce Andres CNP [Primary Care Provider] - 10/16/17 1:00 pm
[2017-10-12] MEDS: *HR* OxyCODONE/APAP 5/325 TABLET PO PRN ×2 (12:55→20:34)
--- NOTE | 2017-10-12 15:56 | Internal Med Progress Note ---
Date of Encounter: 10/12/17 Time of Encounter: 15:54 - Assessment and plan (1) Liver abscess Current Visit: Yes Status: Acute Assessment and plan: Surgery consulted; appreciate input. He is POD #1 s/p open cholecystecomy. S/ P 12 [place] abdominal drain in VIR. Continue regular diet. Pain control. Continue IV cipro. IV flagyl discontinued by surgery. WBC up today, like due to surgery. Recheck CBC in AM. (2) Perforated gallbladder Current Visit: Yes Status: Acute Assessment and plan: Management as per above. (3) Acute cholecystitis Current Visit: Yes Status: Acute Assessment and plan: Management as per above. (4) Severe sepsis Current Visit: Yes Status: Resolved Assessment and plan: Resolved. Continue IV cipro. Recheck labwork in AM. Monitor vitals closely. (5) CLYDE (acute kidney injury) Current Visit: Yes Status: Resolved Assessment and plan: Resolved. Continue regular diet. Recheck BMP in AM. (6) Hypertension Current Visit: Yes Status: Chronic Assessment and plan: Continue PRN hydralazine. Qualifiers: Hypertension type: essential hypertension Qualified Code(s): I10 - Essential (primary) hypertension (7) Hypothyroidism Current Visit: Yes Status: Chronic Assessment and plan: Continue home levothyroxine. Qualifiers: Hypothyroidism type: acquired Qualified Code(s): E03.9 - Hypothyroidism, unspecified (8) Hypokalemia Current Visit: Yes Status: Resolved Assessment and plan: Resolved. Recheck BMP in AM. (9) Hyponatremia Current Visit: Yes Status: Acute Assessment and plan: Decreased today. Continue regular diet. Recheck BMP in AM. (10) DVT prophylaxis Current Visit: Yes Status: Acute Assessment and plan: Continue SQ heparin and SCDs. - Time Spent With Patient Total time spent is greater than 50% in coordination of care (as documented) at patient's floor/unit and/or counseling patient: less than 15 minutes - Subjective Interval history: Patient had no acute events overnight. He is POD #1 s/p open cholecystecomy. He reports significant improvement in abdominal pain. He denies nausea or vomiting. He is tolerating diet. He denies fever, chills, chest pain, and SOB. He has no other complaints at this time. - Constitutional Vitals: Temp Pulse Resp BP Pulse Ox 98.3 F 84 18 104/78 97 10/12/17 11:01 10/12/17 11:01 10/12/17 11:35 10/12/17 11:01 10/12/17 11:35 General appearance: Present: cooperative, A&O X 3, pleasant, no acute distress, answers questions appropriately - Respiratory Respiratory exam: Present: CTAB. Absent: accessory muscle use, rales, rhonchi, wheezes Additional comments: Normal WOB - Cardiovascular Cardiovascular exam: Present: RRR, +S1, +S2. Absent: diastolic murmur, gallop, rubs, systolic murmur Additional comments: No BLE edema - GI/Abdominal GI/Abdominal exam: Present: normal bowel sounds, soft, tenderness (Mild TTP in RLQ and incision site). Absent: distended, hepatomegaly, mass, splenomegaly - Psychiatric Psychiatric exam: Present: normal affect, normal mood. Absent: agitated, anxious, depressed - Skin Skin exam: Present: dry, intact, warm. Absent: cyanosis, rash Internal Medicine: Result - Labs CBC & Chem 7: 10/12/17 03:37 10/12/17 03:37 Labs: Short CBC 10/12/17 Range/Units 03:37 WBC 18.5 H D (4.3-11.1) K/mcL Hgb 12.5 L (12.9-16.9) g/dL Hct 38.6 (37.5-50.1) % Plt Count 591 H (140-400) K/mcL Neutrophils # 15.2 H (1.6-8.9) K/mcL BMP 10/12/17 03:37 Sodium 131 L Potassium 4.8 D Chloride 100 Carbon Dioxide 25 BUN 19 Creatinine 1.27 Glucose 139 H Calcium 7.5 L Liver Function 10/12/17 Range/Units 03:37 Total Bilirubin 0.5 (0.3-1.0) mg/dL AST 190 H (13-39) Units/L ALT 53 H (7-52) Units/L Alkaline Phosphatase 187 H (34-104) Units/L Albumin 2.6 L (3.5-5.7) g/dL - ABG Interpretation ABG results: PT/INR, D-dimer PT 21.7 Seconds (9.4-12.1) H 10/08/17 13:27 Consult Discharge Plan - Plan Referrals: Joel Menchaca MD [Non-Partnered Physician] - Marce Andres CNP [Primary Care Provider] - 10/16/17 1:00 pm
[2017-10-12] MEDS: *HR* OxyCODONE/APAP 10/325 TABLET PO PRN (23:47)
[2017-10-13] MEDS: Ipratropium/Albuterol Neb 3 ML AER SCH ×8 (00:13→23:17)
[2017-10-13] MEDS: *HR* Heparin 5,000 UNIT/ML VIAL SQ SCH ×2 (06:44→16:09)
[2017-10-13 07:05] LABS: Basophils # 0.1 K/mcL (0.0-0.2); Basophils % 0.5 %; Eosinophils # 0.2 K/mcL (0.0-0.6); Eosinophils % 1.3 %; Hematocrit 35.7 % (37.5-50.1); Hemoglobin 11.5 g/dL (12.9-16.9); Lymphocytes # 1.6 K/mcL (0.6-4.6); Lymphocytes % 9.3 %; Mean Corpuscular HGB Conc 32.2 g/dL (31.6-35.5); Mean Corpuscular Hemoglobin 27.4 pg (28.0-33.3); Mean Corpuscular Volume 85.2 fL (83.0-100.0); Mean Platelet Volume 8.9 fL (9.4-12.4); Monocytes # 1.2 K/mcL (0.0-1.3); Monocytes % 6.8 %; Neutrophils # 13.7 K/mcL (1.6-8.9); Platelet Count 595 K/mcL (140-400); Red Blood Count 4.19 M/mcL (4.19-5.50); Red Cell Distribution Width 15.9 % (11.5-14.5); Segmented Neutrophils % 80.1 %
[2017-10-13 07:25] LABS: Alanine Aminotransferase 68 Units/L (7-52); Alkaline Phosphatase 179 Units/L (34-104); Aspartate Amino Transferase 164 Units/L (13-39)
[2017-10-13 07:27] LABS: BUN/Creatinine Ratio 19 (6-26); Blood Urea Nitrogen 26 mg/dL (8-23); Calcium 7.3 mg/dL (8.6-10.3); Carbon Dioxide 26 mEq/L (23-29); Chloride 97 mEq/L (98-107); Glucose 91 mg/dL (70-105); Osmolality,Calculated 274 (280-300); Potassium 4.5 mEq/L (3.5-5.1); Sodium 130 mEq/L (136-145); eGFR For African Americans > 60 (> 60); eGFR For Non-African Americans 51 (> 60)
[2017-10-13] MEDS: Multivit/Ca/Min/Fe/FA 1 TAB TABLET PO SCH (08:54)
[2017-10-13] MEDS: Aspirin 325 MG TABLET PO SCH (08:54)
[2017-10-13] MEDS: *HR* OxyCODONE/APAP 10/325 TABLET PO PRN ×2 (08:54→23:11)
--- NOTE | 2017-10-13 10:21 | General Surgery Progress Note ---
Date of Encounter: 10/13/17 Time of Encounter: 10:14 Subjective Patient reports: other (abdominal distention) Narrative: General Surgery - POD #2 Nursing has expressed concern that the patient's heart rate is elevated, however, review of vital signs demonstrate no such recordings. During my time at bedside; telemetry demonstrated heart rate approximately 84 bpm The patient has remained afebrile, currently 98.4; pulse 84-92, respirations 16-20, blood pressure 118/71 to 128/76. Lungs: Right basilar rales; left clear; no obvious abdominal pain on deep inspiration Cardiac: Regular rate, no appreciable murmurs. Abdomen: Slightly distended, quiet but nontender but non tender. Minimal tenderness right subcostal incision as expected Incision intact, clean and dry. Ilya-Riddle: 45 mL sanguinous fluid for 10/12/17; 15 mL so far today Urine output:or 10/12/17; none recorded for calendar day Laboratories: White count 17.1 (yesterday 18.5); neutrophils also diminished to 13.7 (previously 15.2) hemoglobin 11.5, hematocrit 35.7; platelets 595,000 Sodium 1:30, potassium 4.5, chloride 97. BUN is elevated to 26, creatinine 1.37 with resultant fall estimated GFRto 51 AST improved to 164, ALT 68 (slightly elevated) alkaline phosphatase 179. Pathology: Pending Impression: Postoperative day #2, status post open cholecystectomy for acute perforated cholecystitis with pericholecystic abscess Pain is abdominal distention consistent with an ileus Worsening renal status Recommendations: Increase fluids check AAS continue to monitor Objective Vital Signs - Last 8 Hours Temp Pulse Resp BP Pulse Ox 10/13/17 07:17 98.4 F 92 20 128/76 94 10/13/17 04:42 16 97 10/13/17 03:58 98.7 F 84 18 118/71 97 Intake and Output 10/12/17 10/13/17 10/13/17 23:59 07:59 15:59 Intake Total 200 / 200 850 / 850 240 / 240 Output Total 30 / 30 15 / 15 Balance 170 / 170 850 / 850 225 / 225 Intake: IV Fluids 200 / 200 200 / 200 Cipro Premix 400 MG/200 ML 400 200 / 200 200 / 200 mg In 200 ml @ 200 mls/hr IVPB Q12H [facility] Rx#:[id number] Oral 650 / 650 240 / 240 Output: Wound Drainage Right Lower Abdomen Other: Meal Breakfast Percent of Meal Consumed 25% Weight 93.7 kg Patient Weight 10/13/17 23:59 Weight 93.7 kg - Labs 10/13/17 05:51 10/13/17 05:51 Diabetes panel 10/13/17 10/13/17 Range/Units 05:51 05:51 Sodium 130 L (136-145) mEq/L Potassium 4.5 (3.5-5.1) mEq/L Chloride 97 L (98-107) mEq/L Carbon Dioxide 26 (23-29) mEq/L BUN 26 H (8-23) mg/dL Creatinine 1.37 H (0.70-1.30) mg/dL Glucose 91 (70-105) mg/dL Calcium 7.3 L (8.6-10.3) mg/dL AST 164 H (13-39) Units/L ALT 68 H (7-52) Units/L Alkaline Phosphatase 179 H (34-104) Units/L Calcium panel 10/13/17 Range/Units 05:51 Calcium 7.3 L (8.6-10.3) mg/dL Pituitary panel 10/13/17 Range/Units 05:51 Sodium 130 L (136-145) mEq/L Potassium 4.5 (3.5-5.1) mEq/L Chloride 97 L (98-107) mEq/L Carbon Dioxide 26 (23-29) mEq/L BUN 26 H (8-23) mg/dL Creatinine 1.37 H (0.70-1.30) mg/dL Glucose 91 (70-105) mg/dL Calcium 7.3 L (8.6-10.3) mg/dL Adrenal panel 10/13/17 10/13/17 Range/Units 05:51 05:51 Sodium 130 L (136-145) mEq/L Potassium 4.5 (3.5-5.1) mEq/L Chloride 97 L (98-107) mEq/L Carbon Dioxide 26 (23-29) mEq/L BUN 26 H (8-23) mg/dL Creatinine 1.37 H (0.70-1.30) mg/dL Glucose 91 (70-105) mg/dL Calcium 7.3 L (8.6-10.3) mg/dL AST 164 H (13-39) Units/L ALT 68 H (7-52) Units/L Alkaline Phosphatase 179 H (34-104) Units/L - VTE Documentation of Mechanical Device: Intermittent pneumatic compression device Consult Discharge Plan - Plan Referrals: Joel Menchaca MD [Non-Partnered Physician] - Marce Andres CNP [Primary Care Provider] - 10/16/17 1:00 pm
[2017-10-13] MEDS ORDERED: 0.9 % Sodium Chloride 250 ML IVC ONE (10:39)
[2017-10-13] MEDS: Budesonide/Formoterol 160/4.5 MDI IH SCH ×2 (10:59→19:54)
[2017-10-13] MEDS: 0.9 % Sodium Chloride 1,000 ML IVC SCH (12:44)
--- NOTE | 2017-10-13 14:19 | Internal Med Progress Note ---
Date of Encounter: 10/13/17 Time of Encounter: 14:17 - Assessment and plan (1) Liver abscess Current Visit: Yes Status: Acute Assessment and plan: Surgery consulted; appreciate input. He is POD #2 s/p open cholecystecomy. S/ P 12 [place] abdominal drain in VIR. Continue regular diet. Pain control. Continue IV cipro. WBC starting to trend down. Recheck CBC in AM. (2) Perforated gallbladder Current Visit: Yes Status: Acute Assessment and plan: Management as per above. (3) Acute cholecystitis Current Visit: Yes Status: Acute Assessment and plan: Management as per above. (4) Severe sepsis Current Visit: Yes Status: Resolved Assessment and plan: Resolved. Continue IV cipro. Recheck labwork in AM. Monitor vitals closely. (5) CLYDE (acute kidney injury) Current Visit: Yes Status: Acute Assessment and plan: Creatinine worsened this AM. Continue IVF as managed by surgery. Continue regular diet. Recheck BMP in AM. (6) Hypertension Current Visit: Yes Status: Chronic Assessment and plan: Continue PRN hydralazine. Qualifiers: Hypertension type: essential hypertension Qualified Code(s): I10 - Essential (primary) hypertension (7) Hypothyroidism Current Visit: Yes Status: Chronic Assessment and plan: Continue home levothyroxine. Qualifiers: Hypothyroidism type: acquired Qualified Code(s): E03.9 - Hypothyroidism, unspecified (8) Hypokalemia Current Visit: Yes Status: Resolved Assessment and plan: Resolved. Recheck BMP in AM. (9) Hyponatremia Current Visit: Yes Status: Acute Assessment and plan: Decreased today. Continue IVF as managed by surgery. Continue regular diet. Recheck BMP in AM. (10) DVT prophylaxis Current Visit: Yes Status: Acute Assessment and plan: Continue SQ heparin and SCDs. - Time Spent With Patient Total time spent is greater than 50% in coordination of care (as documented) at patient's floor/unit and/or counseling patient: less than 15 minutes - Subjective Interval history: Patient had no acute events overnight. He is POD #2 s/p open cholecystecomy. He still has abdominal pain, but greatly improved. He denies nausea or vomiting. He is tolerating diet. He denies fever, chills, chest pain, and SOB. He has no other complaints at this time. - Constitutional Vitals: Temp Pulse Resp BP Pulse Ox 98.9 F 83 18 116/76 100 10/13/17 11:25 10/13/17 11:25 10/13/17 11:25 10/13/17 11:25 10/13/17 11:25 General appearance: Present: cooperative, A&O X 3, pleasant, no acute distress, answers questions appropriately - Respiratory Respiratory exam: Present: CTAB. Absent: accessory muscle use, rales, rhonchi, wheezes Additional comments: Normal WOB - Cardiovascular Cardiovascular exam: Present: RRR, +S1, +S2. Absent: diastolic murmur, gallop, rubs, systolic murmur Additional comments: No BLE edema - GI/Abdominal GI/Abdominal exam: Present: distended (Mild), normal bowel sounds, soft, tenderness. Absent: hepatomegaly, mass, splenomegaly - Psychiatric Psychiatric exam: Present: normal affect, normal mood. Absent: agitated, anxious, depressed - Skin Skin exam: Present: dry, intact, warm. Absent: cyanosis, rash Internal Medicine: Result - Labs CBC & Chem 7: 10/13/17 05:51 10/13/17 05:51 Labs: Short CBC 10/13/17 Range/Units 05:51 WBC 17.1 H (4.3-11.1) K/mcL Hgb 11.5 L (12.9-16.9) g/dL Hct 35.7 L (37.5-50.1) % Plt Count 595 H (140-400) K/mcL Neutrophils # 13.7 H (1.6-8.9) K/mcL BMP 10/13/17 05:51 Sodium 130 L Potassium 4.5 Chloride 97 L Carbon Dioxide 26 BUN 26 H Creatinine 1.37 H Glucose 91 Calcium 7.3 L Liver Function 10/13/17 Range/Units 05:51 AST 164 H (13-39) Units/L ALT 68 H (7-52) Units/L Alkaline Phosphatase 179 H (34-104) Units/L - ABG Interpretation ABG results: PT/INR, D-dimer PT 21.7 Seconds (9.4-12.1) H 10/08/17 13:27 - Impressions Impressions Chest/Abdomen X-ray 10/13/17 10:40 IMPRESSION: Surgical clips and drainage catheter projecting over the right upper quadrant. Otherwise unremarkable study. D/ / Tova Zaragoza Cha, MD / Tova Zaragoza Cha, MD Interpreting Provider: Tova Zaragoza Cha, MD Consult Discharge Plan - Plan Referrals: Joel Menchaca MD [Non-Partnered Physician] - Marce Andres CNP [Primary Care Provider] - 10/16/17 1:00 pm
[2017-10-13] MEDS ORDERED: GI Cocktail 40 ML EACH PO STA (16:45)
[2017-10-13] MEDS: Pantoprazole 40 MG VIAL IVP SCH (17:06)
[2017-10-14] MEDS: 0.9 % Sodium Chloride 1,000 ML IVC SCH ×2 (03:20→20:40)
[2017-10-14] MEDS: Ipratropium/Albuterol Neb 3 ML AER SCH ×6 (03:31→23:10)
[2017-10-14 05:11] LABS: Basophils % 0.3 %; Eosinophils # 0.2 K/mcL (0.0-0.6); Eosinophils % 1.6 %; Hematocrit 32.9 % (37.5-50.1); Hemoglobin 10.9 g/dL (12.9-16.9); Lymphocytes # 1.4 K/mcL (0.6-4.6); Lymphocytes % 10.9 %; Mean Corpuscular HGB Conc 33.1 g/dL (31.6-35.5); Mean Corpuscular Hemoglobin 28.6 pg (28.0-33.3); Mean Corpuscular Volume 86.4 fL (83.0-100.0); Mean Platelet Volume 8.5 fL (9.4-12.4); Monocytes # 0.9 K/mcL (0.0-1.3); Monocytes % 6.8 %; Platelet Count 547 K/mcL (140-400); Red Blood Count 3.81 M/mcL (4.19-5.50); Segmented Neutrophils % 78.4 %
[2017-10-14] MEDS: *HR* Heparin 5,000 UNIT/ML VIAL SQ SCH ×2 (05:30→18:00)
[2017-10-14 05:41] LABS: Alanine Aminotransferase 49 Units/L (7-52); Albumin 2.4 g/dL (3.5-5.7); Albumin/Globulin Ratio 0.7 (1.1-2.2); Alkaline Phosphatase 143 Units/L (34-104); Aspartate Amino Transferase 82 Units/L (13-39); BUN/Creatinine Ratio 18 (6-26); Bilirubin,Direct 0.1 mg/dL (0.0-0.2); Bilirubin,Indirect 0.3 mg/dL (0.0-1.2); Bilirubin,Total 0.4 mg/dL (0.3-1.0); Blood Urea Nitrogen 23 mg/dL (8-23); Calcium 7.3 mg/dL (8.6-10.3); Carbon Dioxide 25 mEq/L (23-29); Chloride 99 mEq/L (98-107); Globulin 3.4 g/dL (2.4-3.5); Glucose 100 mg/dL (70-105); Magnesium 1.8 mg/dL (1.6-2.6); Osmolality,Calculated 276 (280-300); Potassium 4.8 mEq/L (3.5-5.1); Sodium 131 mEq/L (136-145); Total Protein 5.8 g/dL (6.4-8.9); eGFR For African Americans > 60 (> 60); eGFR For Non-African Americans 55 (> 60)
[2017-10-14] MEDS: Budesonide/Formoterol 160/4.5 MDI IH SCH ×2 (07:51→20:31)
[2017-10-14] MEDS: Multivit/Ca/Min/Fe/FA 1 TAB TABLET PO SCH (08:17)
[2017-10-14] MEDS: Aspirin 325 MG TABLET PO SCH (08:17)
[2017-10-14] MEDS: Pantoprazole 40 MG VIAL IVP SCH (08:17)
--- NOTE | 2017-10-14 12:23 | General Surgery Progress Note ---
Date of Encounter: 10/14/17 Time of Encounter: 12:20 Subjective Patient reports: no new complaints Narrative: General Surgery - POD #3 The patient continues to be afebrile, pulse 85 (no recorded tachycardia in the last 24 hours); RR 18; current BP low 93/39 but 121/82 earlier this AM Patient denies any increased abdominal pain he does admit that it "comes and goes". Appears to be tolerating diet; passing flatus, no BM Lungs: Unchanged; rales right base Abdomen: Protuberant, nontender. Active bowel sounds. Subcostal incision clean and dry. Ecchymosis noted left lower anterior abdominal wall - likely due to subcutaneous heparin MERCEDES: 45 mL for calendar day 10/12/17; 25 mL for calendar day 10/13/17; no output recorded so far today Urine output: 475 mL in the last 24 hours; 350 mL so far today Labs: White count continues to improve, 12.8; hemoglobin 10.9 with hematocrit 32.9- Slightly diminished secondary to IV fluids administered in the last 24 hours Platelet count 547,000; neutrophils also continuing to improve the 10.0 Sodium 131, potassium 4.8, BUN has improved to 23, creatinine improved to 1.29; estimated GFR increased to 55 - satisfactory response to IV fluids Bilirubin 0.4; AST has improved 82, AST has normalized, 49; alkaline phosphatase improved to 143. Phosphorus 2.0, magnesium 1.8. Acute abdominal series: reviewed with [facility] - bilateral pleural and parenchymal scarring with architectural distortion was pronounced in the upper lungs; normal bowel pattern with oral contrast, from previous CT, reaching the rectum. No free air evident Operative cultures demonstrate no growth - patient appears to have responded to admin ATB since admission Impression: Postoperative day #3 - acceptable post op status. Plan: discontinue ATB (patient has received 7 days with no growth on repeat cultures at the time of surgery) Continue IV fluids; renal status improved with initiation of these fluids correct hypophospatemia reduce narcotic pain meds Recheck CBC in AM Discussed with Dr Lowe Objective Vital Signs - Last 8 Hours Temp Pulse Resp BP Pulse Ox 10/14/17 11:59 98.7 F 85 18 93/39 95 10/14/17 07:51 18 97 10/14/17 07:25 98.9 F 89 18 121/82 97 Intake and Output 10/13/17 10/14/17 10/14/17 23:59 07:59 15:59 Intake Total 320 / 320 1200 / 1200 120 / 120 Output Total 475 / 475 350 / 350 Balance -155 / -155 850 / 850 120 / 120 Intake: IV Fluids 200 / 200 1200 / 1200 0.9 % Sodium Chloride 1,000 ML 1000 / 1000 @ 60 mls/hr IVC .[id number] ON LICENSE OF [facility] Rx #:[id number] Cipro Premix 400 MG/200 ML 400 200 / 200 200 / 200 mg In 200 ml @ 200 mls/hr IVPB Q12H ON LICENSE OF [facility] Rx#:[id number] Oral 120 / 120 120 / 120 Output: Urine 475 / 475 350 / 350 Wound Drainage 0 / 0 Right Lower Abdomen 0 / 0 Other: Meal Dinner Breakfast Percent of Meal Consumed 0% 100% # Voids 1 Weight 94.1 kg Patient Weight 10/14/17 23:59 Weight 94.1 kg - Labs 10/14/17 04:58 10/14/17 04:58 Diabetes panel 10/14/17 Range/Units 04:58 Sodium 131 L (136-145) mEq/L Potassium 4.8 (3.5-5.1) mEq/L Chloride 99 (98-107) mEq/L Carbon Dioxide 25 (23-29) mEq/L BUN 23 (8-23) mg/dL Creatinine 1.29 (0.70-1.30) mg/dL Glucose 100 (70-105) mg/dL Calcium 7.3 L (8.6-10.3) mg/dL AST 82 H (13-39) Units/L ALT 49 (7-52) Units/L Alkaline Phosphatase 143 H (34-104) Units/L Albumin 2.4 L (3.5-5.7) g/dL Calcium panel 10/14/17 Range/Units 04:58 Calcium 7.3 L (8.6-10.3) mg/dL Phosphorus 2.0 L (2.7-4.5) mg/dL Albumin 2.4 L (3.5-5.7) g/dL Pituitary panel 10/14/17 Range/Units 04:58 Sodium 131 L (136-145) mEq/L Potassium 4.8 (3.5-5.1) mEq/L Chloride 99 (98-107) mEq/L Carbon Dioxide 25 (23-29) mEq/L BUN 23 (8-23) mg/dL Creatinine 1.29 (0.70-1.30) mg/dL Glucose 100 (70-105) mg/dL Calcium 7.3 L (8.6-10.3) mg/dL Adrenal panel 10/14/17 Range/Units 04:58 Sodium 131 L (136-145) mEq/L Potassium 4.8 (3.5-5.1) mEq/L Chloride 99 (98-107) mEq/L Carbon Dioxide 25 (23-29) mEq/L BUN 23 (8-23) mg/dL Creatinine 1.29 (0.70-1.30) mg/dL Glucose 100 (70-105) mg/dL Calcium 7.3 L (8.6-10.3) mg/dL Total Bilirubin 0.4 (0.3-1.0) mg/dL AST 82 H (13-39) Units/L ALT 49 (7-52) Units/L Alkaline Phosphatase 143 H (34-104) Units/L Albumin 2.4 L (3.5-5.7) g/dL - VTE Documentation of Mechanical Device: Intermittent pneumatic compression device Consult Discharge Plan - Plan Referrals: Joel Menchaca MD [Non-Partnered Physician] - Marce Andres CNP [Primary Care Provider] - 10/16/17 1:00 pm
[2017-10-14] MEDS: Nystatin SUSP 5 ML UD.LIQ PO SCH ×3 (13:50→20:39)
--- NOTE | 2017-10-14 17:04 | Internal Med Progress Note ---
Date of Encounter: 10/14/17 Time of Encounter: 17:01 - Assessment and plan (1) Liver abscess Current Visit: Yes Status: Resolved Assessment and plan: Surgery consulted; appreciate input. He is POD #3 s/p open cholecystecomy. S/ P 12 [place] abdominal drain in VIR. Continue regular diet. Pain control; weaning now. Discontinue IV cipro per surgery. I discussed case with Dr. Menchaca. Recheck CBC in AM. PT/OT consulted today. (2) Perforated gallbladder Current Visit: Yes Status: Resolved Assessment and plan: Management as per above. (3) Acute cholecystitis Current Visit: Yes Status: Resolved Assessment and plan: Management as per above. (4) Severe sepsis Current Visit: Yes Status: Resolved Assessment and plan: Resolved. Antibiotics discontinued today. Recheck labwork in AM. Monitor vitals closely. (5) CLYDE (acute kidney injury) Current Visit: Yes Status: Resolved Assessment and plan: Creatinine improved this AM. Continue IVF as managed by surgery. Continue regular diet. Recheck BMP in AM. (6) Hypertension Current Visit: Yes Status: Chronic Assessment and plan: Continue PRN hydralazine. Qualifiers: Hypertension type: essential hypertension Qualified Code(s): I10 - Essential (primary) hypertension (7) Hypothyroidism Current Visit: Yes Status: Chronic Assessment and plan: Continue home levothyroxine. Qualifiers: Hypothyroidism type: acquired Qualified Code(s): E03.9 - Hypothyroidism, unspecified (8) Hypokalemia Current Visit: Yes Status: Resolved Assessment and plan: Resolved. Recheck BMP in AM. (9) Hyponatremia Current Visit: Yes Status: Acute Assessment and plan: Decreased today. Continue IVF as managed by surgery. Continue regular diet. Recheck BMP in AM. (10) DVT prophylaxis Current Visit: Yes Status: Acute Assessment and plan: Continue SQ heparin and SCDs. - Time Spent With Patient Total time spent is greater than 50% in coordination of care (as documented) at patient's floor/unit and/or counseling patient: less than 15 minutes - Subjective Interval history: Patient had no acute events overnight. He is POD #3 s/p open cholecystecomy. He still has abdominal pain, but slowly improving. He denies nausea or vomiting. He is tolerating diet. No bowel movement in last 3 days, but not complaining of constipation. He denies fever, chills, chest pain, and SOB. He has no other complaints at this time. - Constitutional Vitals: Temp Pulse Resp BP Pulse Ox 98.8 F 84 18 93/39 94 10/14/17 16:50 10/14/17 16:50 10/14/17 16:50 10/14/17 11:59 10/14/17 16:50 General appearance: Present: cooperative, A&O X 3, pleasant, no acute distress, answers questions appropriately - Respiratory Respiratory exam: Present: CTAB. Absent: accessory muscle use, rales, rhonchi, wheezes Additional comments: Normal WOB - Cardiovascular Cardiovascular exam: Present: RRR, +S1, +S2. Absent: diastolic murmur, gallop, rubs, systolic murmur Additional comments: No BLE edema - GI/Abdominal GI/Abdominal exam: Present: distended (mild), normal bowel sounds, soft, tenderness (mild TTP diffusely across abdomen). Absent: hepatomegaly, mass, splenomegaly - Psychiatric Psychiatric exam: Present: normal affect, normal mood. Absent: agitated, anxious, depressed - Skin Skin exam: Present: dry, warm. Absent: cyanosis, erythema, rash Internal Medicine: Result - Labs CBC & Chem 7: 10/14/17 04:58 10/14/17 04:58 Labs: Short CBC 10/14/17 Range/Units 04:58 WBC 12.8 H (4.3-11.1) K/mcL Hgb 10.9 L (12.9-16.9) g/dL Hct 32.9 L (37.5-50.1) % Plt Count 547 H (140-400) K/mcL Neutrophils # 10.0 H (1.6-8.9) K/mcL BMP 10/14/17 04:58 Sodium 131 L Potassium 4.8 Chloride 99 Carbon Dioxide 25 BUN 23 Creatinine 1.29 Glucose 100 Calcium 7.3 L Liver Function 10/14/17 Range/Units 04:58 Total Bilirubin 0.4 (0.3-1.0) mg/dL Direct Bilirubin 0.1 (0.0-0.2) mg/dL AST 82 H (13-39) Units/L ALT 49 (7-52) Units/L Alkaline Phosphatase 143 H (34-104) Units/L Albumin 2.4 L (3.5-5.7) g/dL - ABG Interpretation ABG results: PT/INR, D-dimer PT 21.7 Seconds (9.4-12.1) H 10/08/17 13:27 Consult Discharge Plan - Plan Referrals: Joel Menchaca MD [Non-Partnered Physician] - Marce Andres CNP [Primary Care Provider] - 10/16/17 1:00 pm
[2017-10-15] MEDS: Ipratropium/Albuterol Neb 3 ML AER SCH ×6 (04:02→23:05)
[2017-10-15] MEDS: *HR* OxyCODONE/APAP 5/325 TABLET PO PRN (05:24)
[2017-10-15] MEDS: *HR* Heparin 5,000 UNIT/ML VIAL SQ SCH ×2 (05:25→16:58)
[2017-10-15 06:29] LABS: Basophils % 0.4 %; Eosinophils # 0.2 K/mcL (0.0-0.6); Eosinophils % 1.6 %; Hematocrit 32.3 % (37.5-50.1); Hemoglobin 10.3 g/dL (12.9-16.9); Immature Granulocytes % 1.4 % (0-4); Lymphocytes % 9.6 %; Mean Corpuscular HGB Conc 31.9 g/dL (31.6-35.5); Mean Corpuscular Hemoglobin 27.3 pg (28.0-33.3); Mean Corpuscular Volume 85.7 fL (83.0-100.0); Mean Platelet Volume 8.7 fL (9.4-12.4); Monocytes # 0.7 K/mcL (0.0-1.3); Monocytes % 6.4 %; Neutrophils # 8.2 K/mcL (1.6-8.9); Platelet Count 559 K/mcL (140-400); Red Blood Count 3.77 M/mcL (4.19-5.50); Red Cell Distribution Width 16.5 % (11.5-14.5); Segmented Neutrophils % 80.6 %
[2017-10-15] MEDS: Budesonide/Formoterol 160/4.5 MDI IH SCH ×2 (07:28→19:42)
[2017-10-15] MEDS: Nystatin SUSP 5 ML UD.LIQ PO SCH ×4 (08:52→19:38)
[2017-10-15] MEDS: Aspirin 325 MG TABLET PO SCH (08:52)
[2017-10-15] MEDS: Multivit/Ca/Min/Fe/FA 1 TAB TABLET PO SCH (08:52)
[2017-10-15] MEDS: 0.9 % Sodium Chloride 1,000 ML IVC SCH (12:10)
--- NOTE | 2017-10-15 14:42 | General Surgery Progress Note ---
Date of Encounter: 10/15/17 Time of Encounter: 14:34 Subjective Patient reports: no new complaints Narrative: General Surgery - POD #4 Patient with no new complaints; remains afebrile, hemodynamically stable. 98.5 73, 16, 117/69. SPO2 on 2 L/m nasal cannula 99-100% , Lungs: Clear anteriorly; right basal rales most likely chronic ` Abdomen distended; active bowel sounds; minimally tender; patient passing flatus but no BM. Patient tolerating lunch, no nausea/vomiting Subcostal incision clean and dry. MERCEDES: 10 mL sanguinous output for calendar day 10/14/17; 20 mL so far today Labs: Leukocytosis resolved, 10.2; hemoglobin 10.3 with hematocrit 32.3. Continues to "drift" but this is likely related to continued IV fluids Platelet count 559,000; differential now within normal limits with resolution of the neutrophilia. No chemistries or LFTs drawn today. Impression: Postoperative day #4 - status post open cholecystectomy for acute perforated cholecystitis with pericholecystic abscess. Patient has responded to drainage and subsequent cholecystectomy. Leukocytosis resolved; no fevers. Acceptable postoperative status. Anemia appears to be related to the patient's acute disease (acute perforated cholecystitis with pericholecystic abscess); subsequent surgery and the accompanying perioperative fluids. Plan: Continue IV fluids for renal reason Fleet enema today Check labs - CBC, electrolytes, BUN, creatinine, LFTs in a.m. Objective Vital Signs - Last 8 Hours Temp Pulse Resp BP Pulse Ox 10/15/17 12:05 98.5 F 73 16 117/69 100 10/15/17 11:10 16 99 10/15/17 07:42 98.2 F 74 16 120/60 99 10/15/17 07:28 16 98 Intake and Output 10/14/17 10/15/17 10/15/17 23:59 07:59 15:59 Intake Total 1000 / 1000 1645 / 1645 Output Total 400 / 400 685 / 685 Balance 600 / 600 -685 / -685 1635 / 1635 Intake: IV Fluids 1000 / 1000 925 / 925 0.9 % Sodium Chloride 1,000 ML 1000 / 1000 925 / 925 @ 60 mls/hr IVC .[id number] [facility] Rx #:[id number] Oral 720 / 720 Output: Urine 400 / 400 675 / 675 Wound Drainage Right Lower Abdomen Other: Meal Lunch Percent of Meal Consumed 100% - Labs 10/15/17 05:14 10/14/17 04:58 - VTE Documentation of Mechanical Device: Intermittent pneumatic compression device Consult Discharge Plan - Plan Referrals: Joel Menchaca MD [Non-Partnered Physician] - Marce Andres CNP [Primary Care Provider] - 10/16/17 1:00 pm
[2017-10-15] MEDS ORDERED: 0.9 % Sodium Chloride 1,000 ML IVC SCH (14:44)
--- NOTE | 2017-10-15 19:33 | Internal Med Progress Note ---
Date of Encounter: 10/16/17 Time of Encounter: 11:00 - Assessment and plan (1) Perforated gallbladder Current Visit: Yes Status: Resolved Assessment and plan: Postop day #4 open cholecystectomy for acute perforated cholecystitis General surgery managing and appreciate recommendations (2) Acute cholecystitis Current Visit: Yes Status: Resolved Assessment and plan: Management as per above. (3) CLYDE (acute kidney injury) Current Visit: Yes Status: Resolved Assessment and plan: Resolved; continue to monitor (4) Severe sepsis Current Visit: Yes Status: Resolved Assessment and plan: Resolved; antibiotics discontinued today. (5) Hypertension Current Visit: Yes Status: Chronic Assessment and plan: Continue PRN hydralazine. Qualifiers: Hypertension type: essential hypertension Qualified Code(s): I10 - Essential (primary) hypertension (6) Hypothyroidism Current Visit: Yes Status: Chronic Assessment and plan: Continue home levothyroxine. Qualifiers: Hypothyroidism type: acquired Qualified Code(s): E03.9 - Hypothyroidism, unspecified (7) DVT prophylaxis Current Visit: Yes Status: Acute Assessment and plan: Continue SQ heparin and SCDs. - Time Spent With Patient Total time spent is greater than 50% in coordination of care (as documented) at patient's floor/unit and/or counseling patient: - Subjective Interval history: Still with abdominal discomfort this morning and abdomen slightly distended. - Constitutional Vitals: Temp Pulse Resp BP Pulse Ox 98.2 F 76 15 128/72 100 10/15/17 19:20 10/15/17 19:20 10/15/17 19:20 10/15/17 19:20 10/15/17 19:20 General appearance: Present: cooperative, A&O X 3, pleasant, no acute distress, answers questions appropriately - Respiratory Respiratory exam: Present: CTAB. Absent: accessory muscle use, rales, rhonchi, wheezes - Cardiovascular Cardiovascular exam: Present: RRR, +S1, +S2. Absent: diastolic murmur, gallop, rubs, systolic murmur - GI/Abdominal GI/Abdominal exam: Present: distended, tenderness Internal Medicine: Result - Labs CBC & Chem 7: 10/16/17 06:36 10/16/17 06:36 Labs: Short CBC 10/15/17 Range/Units 05:14 WBC 10.2 (4.3-11.1) K/mcL Hgb 10.3 L (12.9-16.9) g/dL Hct 32.3 L (37.5-50.1) % Plt Count 559 H (140-400) K/mcL Neutrophils # 8.2 (1.6-8.9) K/mcL - ABG Interpretation ABG results: PT/INR, D-dimer PT 21.7 Seconds (9.4-12.1) H 10/08/17 13:27 - VTE Documentation of Mechanical Device: Intermittent pneumatic compression device Consult Discharge Plan - Plan Referrals: Joel Menchaca MD [Non-Partnered Physician] - Marce Andres CNP [Primary Care Provider] -
[2017-10-16] MEDS: Ipratropium/Albuterol Neb 3 ML AER SCH (03:29)
[2017-10-16] MEDS: *HR* Heparin 5,000 UNIT/ML VIAL SQ SCH ×2 (05:26→17:01)
[2017-10-16 06:55] LABS: Basophils # 0.1 K/mcL (0.0-0.2); Basophils % 0.6 %; Eosinophils # 0.2 K/mcL (0.0-0.6); Eosinophils % 2.4 %; Hematocrit 29.7 % (37.5-50.1); Hemoglobin 9.7 g/dL (12.9-16.9); Immature Granulocytes % 1.1 % (0-4); Lymphocytes # 1.1 K/mcL (0.6-4.6); Lymphocytes % 12.2 %; Mean Corpuscular HGB Conc 32.7 g/dL (31.6-35.5); Mean Corpuscular Volume 85.8 fL (83.0-100.0); Mean Platelet Volume 8.2 fL (9.4-12.4); Monocytes # 0.6 K/mcL (0.0-1.3); Monocytes % 6.8 %; Neutrophils # 6.7 K/mcL (1.6-8.9); Platelet Count 483 K/mcL (140-400); Red Blood Count 3.46 M/mcL (4.19-5.50); Red Cell Distribution Width 16.6 % (11.5-14.5); Segmented Neutrophils % 76.9 %
[2017-10-16 07:14] LABS: Alanine Aminotransferase 29 Units/L (7-52); Albumin 2.2 g/dL (3.5-5.7); Albumin/Globulin Ratio 0.7 (1.1-2.2); Alkaline Phosphatase 101 Units/L (34-104); Aspartate Amino Transferase 37 Units/L (13-39); BUN/Creatinine Ratio 12 (6-26); Bilirubin,Direct 0.1 mg/dL (0.0-0.2); Bilirubin,Indirect 0.2 mg/dL (0.0-1.2); Bilirubin,Total 0.3 mg/dL (0.3-1.0); Blood Urea Nitrogen 11 mg/dL (8-23); Calcium 6.9 mg/dL (8.6-10.3); Carbon Dioxide 22 mEq/L (23-29); Chloride 106 mEq/L (98-107); Glucose 83 mg/dL (70-105); Magnesium 1.6 mg/dL (1.6-2.6); Osmolality,Calculated 277 (280-300); Phosphorous 1.9 mg/dL (2.7-4.5); Potassium 3.9 mEq/L (3.5-5.1); Sodium 134 mEq/L (136-145); Total Protein 5.2 g/dL (6.4-8.9); eGFR For African Americans > 60 (> 60); eGFR For Non-African Americans > 60 (> 60)
[2017-10-16] MEDS: Budesonide/Formoterol 160/4.5 MDI IH SCH ×2 (07:48→21:16)
[2017-10-16] MEDS: Aspirin 325 MG TABLET PO SCH (07:59)
[2017-10-16] MEDS: Nystatin SUSP 5 ML UD.LIQ PO SCH ×4 (07:59→19:48)
[2017-10-16] MEDS: Multivit/Ca/Min/Fe/FA 1 TAB TABLET PO SCH (07:59)
[2017-10-16] MEDS ORDERED: Furosemide 40 MG/4 ML VIAL IVP ONE (17:04)
--- NOTE | 2017-10-16 17:14 | General Surgery Progress Note ---
Date of Encounter: 10/16/17 Time of Encounter: 17:06 Subjective Narrative: General Surgery POD #5 Patient voicing no new complaints; maximum temperature 99.1; pulse 74-77, respiratory rate 16, blood pressure 124/70. Nursing expresses concern about the patient's relatively poor oral intake. The patient denies anorexia or poor eating habits. Lungs: Right sided rales, possibly slightly increased. Left side with diminished breath sounds but no audible rales or wheezes. Abdomen: Protuberant, soft, nontender. Subcostal incision remains intact and appears to be healing well. Active bowel sounds BM in response to Fleet enema noted 2 MERCEDES: Approximately 15 mL for this calendar day. Urine output: 675 mL for calendar day 10/15/17 with positive fluid balance of 950 mL 800 mL so far today with a negative fluid balance of approximately 225 mL Extremities: 3-4+ pitting edema bilaterally to at least the knees. Laboratories: White count 8.7, hemoglobin 9.7 with hematocrit 29.7 - H&H has fallen in the last 72 hours likely due to administered IV fluids Differential remains within normal limits, platelet count 483,000. Sodium 134, potassium 3.9, BUN 11, creatinine 0.92; estimated GFR greater than 60 Bilirubin 0.1; AST normal at 37, ALT normal at 29, alkaline phosphatase has normalized to 101 Impression: Postoperative day #5 - status post open cholecystectomy for acute perforated cholecystitis with pericholecystic abscess. Patient has responded well to drainage and subsequent cholecystectomy. Leukocytosis and abnormal LFTs resolved Renal function improved with IV fluids, however, patient now appears to be fluid overloaded with significant dependent edema involving both lower extremities Persistent hypophosphatemia - supplement in progress Plan: Discontinue IV fluids Lasix diuresis with risk of electrolyte abnormalities, persistent hypophosphatemia and worsening renal status. Postoperative status is good; the patient appears to have responded favorably to the interventions provided today Objective Vital Signs - Last 8 Hours Temp Pulse Resp BP Pulse Ox 10/16/17 15:06 99.1 F 77 16 124/70 96 10/16/17 10:18 98.4 F 74 16 110/69 100 Intake and Output 10/16/17 10/16/17 10/16/17 07:59 15:59 23:59 Intake Total 0 / 0 240 / 240 Output Total 405 / 405 10 400 / 400 Balance -405 / -405 230 / 230 -400 / -400 Intake: Oral 0 / 0 240 / 240 Output: Urine 400 / 400 0 / 0 400 / 400 Wound Drainage Right Lower Abdomen Other: Meal Lunch Percent of Meal Consumed 25% Stool Size Small Stool Color Brown # Voids 1 1 - Labs 10/16/17 06:36 10/16/17 06:36 Diabetes panel 10/16/17 Range/Units 06:36 Sodium 134 L (136-145) mEq/L Potassium 3.9 (3.5-5.1) mEq/L Chloride 106 (98-107) mEq/L Carbon Dioxide 22 L (23-29) mEq/L BUN 11 (8-23) mg/dL Creatinine 0.92 (0.70-1.30) mg/dL Glucose 83 (70-105) mg/dL Calcium 6.9 L (8.6-10.3) mg/dL AST 37 (13-39) Units/L ALT 29 (7-52) Units/L Alkaline Phosphatase 101 (34-104) Units/L Albumin 2.2 L (3.5-5.7) g/dL Calcium panel 10/16/17 Range/Units 06:36 Calcium 6.9 L (8.6-10.3) mg/dL Phosphorus 1.9 L (2.7-4.5) mg/dL Albumin 2.2 L (3.5-5.7) g/dL Pituitary panel 10/16/17 Range/Units 06:36 Sodium 134 L (136-145) mEq/L Potassium 3.9 (3.5-5.1) mEq/L Chloride 106 (98-107) mEq/L Carbon Dioxide 22 L (23-29) mEq/L BUN 11 (8-23) mg/dL Creatinine 0.92 (0.70-1.30) mg/dL Glucose 83 (70-105) mg/dL Calcium 6.9 L (8.6-10.3) mg/dL Adrenal panel 10/16/17 Range/Units 06:36 Sodium 134 L (136-145) mEq/L Potassium 3.9 (3.5-5.1) mEq/L Chloride 106 (98-107) mEq/L Carbon Dioxide 22 L (23-29) mEq/L BUN 11 (8-23) mg/dL Creatinine 0.92 (0.70-1.30) mg/dL Glucose 83 (70-105) mg/dL Calcium 6.9 L (8.6-10.3) mg/dL Total Bilirubin 0.3 (0.3-1.0) mg/dL AST 37 (13-39) Units/L ALT 29 (7-52) Units/L Alkaline Phosphatase 101 (34-104) Units/L Albumin 2.2 L (3.5-5.7) g/dL - VTE Documentation of Mechanical Device: Intermittent pneumatic compression device Consult Discharge Plan - Plan Referrals: Joel Menchaca MD [Non-Partnered Physician] -
--- NOTE | 2017-10-16 18:32 | Internal Med Progress Note ---
Date of Encounter: 10/16/17 Time of Encounter: 11:00 - Assessment and plan (1) Perforated gallbladder Current Visit: Yes Status: Resolved Assessment and plan: Postop day #5 open cholecystectomy for acute perforated cholecystitis Patient still with abdominal tenderness with movement Patient does report of flatulence and small bowel movement General surgery managing and appreciate recommendations (2) Acute cholecystitis Current Visit: Yes Status: Resolved Assessment and plan: Management as per above. (3) CLYDE (acute kidney injury) Current Visit: Yes Status: Resolved Assessment and plan: Resolved; continue to monitor (4) Severe sepsis Current Visit: Yes Status: Resolved Assessment and plan: Resolved; antibiotics discontinued today. (5) Hypertension Current Visit: Yes Status: Chronic Assessment and plan: Continue PRN hydralazine. Qualifiers: Hypertension type: essential hypertension Qualified Code(s): I10 - Essential (primary) hypertension (6) Hypothyroidism Current Visit: Yes Status: Chronic Assessment and plan: Continue home levothyroxine. Qualifiers: Hypothyroidism type: acquired Qualified Code(s): E03.9 - Hypothyroidism, unspecified (7) DVT prophylaxis Current Visit: Yes Status: Acute Assessment and plan: Continue SQ heparin and SCDs. - Time Spent With Patient Total time spent is greater than 50% in coordination of care (as documented) at patient's floor/unit and/or counseling patient: - Subjective Interval history: Still with abdominal discomfort this morning and abdomen slightly distended. Patient was sitting up in the chair this morning; abdominal discomfort with movement - Constitutional Vitals: Temp Pulse Resp BP Pulse Ox 99.1 F 77 16 124/70 96 10/16/17 15:06 10/16/17 15:06 10/16/17 15:06 10/16/17 15:06 10/16/17 15:06 General appearance: Present: cooperative, A&O X 3, pleasant, no acute distress, answers questions appropriately - Respiratory Respiratory exam: Present: CTAB. Absent: accessory muscle use, rales, rhonchi, wheezes - Cardiovascular Cardiovascular exam: Present: RRR, +S1, +S2. Absent: diastolic murmur, gallop, rubs, systolic murmur Internal Medicine: Result - Labs CBC & Chem 7: 10/16/17 06:36 10/16/17 06:36 Labs: Short CBC 10/16/17 Range/Units 06:36 WBC 8.7 (4.3-11.1) K/mcL Hgb 9.7 L (12.9-16.9) g/dL Hct 29.7 L (37.5-50.1) % Plt Count 483 H (140-400) K/mcL Neutrophils # 6.7 (1.6-8.9) K/mcL BMP 10/16/17 06:36 Sodium 134 L Potassium 3.9 Chloride 106 Carbon Dioxide 22 L BUN 11 Creatinine 0.92 Glucose 83 Calcium 6.9 L Liver Function 10/16/17 Range/Units 06:36 Total Bilirubin 0.3 (0.3-1.0) mg/dL Direct Bilirubin 0.1 (0.0-0.2) mg/dL AST 37 (13-39) Units/L ALT 29 (7-52) Units/L Alkaline Phosphatase 101 (34-104) Units/L Albumin 2.2 L (3.5-5.7) g/dL - ABG Interpretation ABG results: PT/INR, D-dimer PT 21.7 Seconds (9.4-12.1) H 10/08/17 13:27 - VTE Documentation of Mechanical Device: Intermittent pneumatic compression device Consult Discharge Plan - Plan Referrals: Joel Menchaca MD [Non-Partnered Physician] -
[2017-10-17] MEDS: *HR* Heparin 5,000 UNIT/ML VIAL SQ SCH ×2 (06:13→18:18)
[2017-10-17 06:54] LABS: Basophils # 0.1 K/mcL (0.0-0.2); Basophils % 0.5 %; Eosinophils # 0.2 K/mcL (0.0-0.6); Eosinophils % 1.5 %; Hematocrit 35.9 % (37.5-50.1); Lymphocytes % 10.2 %; Mean Corpuscular HGB Conc 31.5 g/dL (31.6-35.5); Mean Corpuscular Hemoglobin 27.2 pg (28.0-33.3); Mean Corpuscular Volume 86.3 fL (83.0-100.0); Mean Platelet Volume 8.2 fL (9.4-12.4); Monocytes # 0.6 K/mcL (0.0-1.3); Monocytes % 5.9 %; Neutrophils # 8.1 K/mcL (1.6-8.9); Platelet Count 515 K/mcL (140-400); Red Blood Count 4.16 M/mcL (4.19-5.50); Red Cell Distribution Width 16.5 % (11.5-14.5); Segmented Neutrophils % 80.9 %
[2017-10-17 06:57] LABS: Hemoglobin 11.3 g/dL (12.9-16.9)
[2017-10-17 07:15] LABS: BUN/Creatinine Ratio 9 (6-26); Blood Urea Nitrogen 9 mg/dL (8-23); Calcium 7.5 mg/dL (8.6-10.3); Carbon Dioxide 27 mEq/L (23-29); Chloride 101 mEq/L (98-107); Glucose 95 mg/dL (70-105); Osmolality,Calculated 278 (280-300); Sodium 135 mEq/L (136-145); eGFR For African Americans > 60 (> 60); eGFR For Non-African Americans > 60 (> 60)
[2017-10-17] MEDS: Nystatin SUSP 5 ML UD.LIQ PO SCH ×4 (09:25→20:01)
[2017-10-17] MEDS: Aspirin 325 MG TABLET PO SCH (09:25)
[2017-10-17] MEDS: Multivit/Ca/Min/Fe/FA 1 TAB TABLET PO SCH (09:26)
[2017-10-17] MEDS: Budesonide/Formoterol 160/4.5 MDI IH SCH ×2 (10:19→20:48)
[2017-10-17] MEDS: Tiotropium 18 MCG inhalation IH SCH (10:19)
[2017-10-17] MEDS ORDERED: Furosemide 40 MG/4 ML VIAL IVP ONE (14:45)
--- NOTE | 2017-10-17 14:45 | General Surgery Progress Note ---
Date of Encounter: 10/17/17 Time of Encounter: 14:40 Subjective Narrative: General Surgery - POD #6 Patient voicing no new complaints Afebrile, 98.9, pulse 88, respirations 15, blood pressure 124/65. SPO2 on room air 98-99% Lungs: Clear; persistent rales right base, suspected to be baseline. Respiratory status appears improved post-diuresis Abdomen: protuberant, soft nontender active bowel sounds. Small brown BM yesterday. MERCEDES drain - scant drainage - removed Extremities 4+ pitting edema persists despite fairly brisk response to Lasix administered last evening. Urine output 1800 mL for countered a 10/16/17; 425 mL so far today. Laboratories: White count 10.0; hemoglobin 11.3, hematocrit 35.9 - improved due to diuresis Sodium 135, other electrolytes, BUN, creatinine within normal limits Impression: Postoperative day #6 - status post open cholecystectomy with evacuation of pericholecystic abscess Patient doing well Effective diuresis with Lasix last evening; dependent edema persists. Plan: Discussed with Dr. Campbell. Additional lasix today. Objective Vital Signs - Last 8 Hours Temp Pulse Resp BP Pulse Ox 10/17/17 14:32 98.9 F 88 15 124/65 99 10/17/17 10:34 98.3 F 82 16 138/82 98 10/17/17 07:45 98.0 F 81 18 109/65 100 Intake and Output 10/16/17 10/17/17 10/17/17 23:59 07:59 15:59 Intake Total 350 / 350 400 / 400 600 / 600 Output Total 1400 / 1400 425 / 425 0 / 0 Balance -1050 / -1050 -25 / -25 600 / 600 Intake: Oral 350 / 350 400 / 400 600 / 600 Output: Urine 1400 / 1400 425 / 425 Wound Drainage 0 / 0 0 / 0 Right Lower Abdomen 0 / 0 0 / 0 Other: Meal Lunch Percent of Meal Consumed 20% # Voids 1 Weight 90.8 kg Patient Weight 10/17/17 23:59 Weight 90.8 kg - Labs 10/17/17 06:34 10/17/17 06:34 Diabetes panel 10/17/17 Range/Units 06:34 Sodium 135 L (136-145) mEq/L Potassium 4.0 (3.5-5.1) mEq/L Chloride 101 (98-107) mEq/L Carbon Dioxide 27 (23-29) mEq/L BUN 9 (8-23) mg/dL Creatinine 0.96 (0.70-1.30) mg/dL Glucose 95 (70-105) mg/dL Calcium 7.5 L (8.6-10.3) mg/dL Calcium panel 10/17/17 Range/Units 06:34 Calcium 7.5 L (8.6-10.3) mg/dL Pituitary panel 10/17/17 Range/Units 06:34 Sodium 135 L (136-145) mEq/L Potassium 4.0 (3.5-5.1) mEq/L Chloride 101 (98-107) mEq/L Carbon Dioxide 27 (23-29) mEq/L BUN 9 (8-23) mg/dL Creatinine 0.96 (0.70-1.30) mg/dL Glucose 95 (70-105) mg/dL Calcium 7.5 L (8.6-10.3) mg/dL Adrenal panel 10/17/17 Range/Units 06:34 Sodium 135 L (136-145) mEq/L Potassium 4.0 (3.5-5.1) mEq/L Chloride 101 (98-107) mEq/L Carbon Dioxide 27 (23-29) mEq/L BUN 9 (8-23) mg/dL Creatinine 0.96 (0.70-1.30) mg/dL Glucose 95 (70-105) mg/dL Calcium 7.5 L (8.6-10.3) mg/dL - VTE Documentation of Mechanical Device: Intermittent pneumatic compression device Consult Discharge Plan - Plan Referrals: Joel Menchaca MD [Non-Partnered Physician] -
--- NOTE | 2017-10-17 19:50 | Internal Med Progress Note ---
Date of Encounter: 10/18/17 Time of Encounter: 11:00 - Assessment and plan (1) Perforated gallbladder Current Visit: Yes Status: Resolved Assessment and plan: Postop day #6 open cholecystectomy for acute perforated cholecystitis Patient still with abdominal tenderness with movement Patient with flatulence and small bowel movement General surgery managing and appreciate recommendations (2) Acute cholecystitis Current Visit: Yes Status: Resolved Assessment and plan: Management as per above. (3) CLYDE (acute kidney injury) Current Visit: Yes Status: Resolved Assessment and plan: Resolved; continue to monitor (4) Severe sepsis Current Visit: Yes Status: Resolved Assessment and plan: Resolved; antibiotics discontinued today. (5) Hypertension Current Visit: Yes Status: Chronic Assessment and plan: Continue PRN hydralazine. Qualifiers: Hypertension type: essential hypertension Qualified Code(s): I10 - Essential (primary) hypertension (6) Hypothyroidism Current Visit: Yes Status: Chronic Assessment and plan: Continue home levothyroxine. Qualifiers: Hypothyroidism type: acquired Qualified Code(s): E03.9 - Hypothyroidism, unspecified (7) DVT prophylaxis Current Visit: Yes Status: Acute Assessment and plan: Continue SQ heparin and SCDs. - Time Spent With Patient Total time spent is greater than 50% in coordination of care (as documented) at patient's floor/unit and/or counseling patient: - Subjective Interval history: Patient with improvement in abdominal discomfort this morning but still with bilateral lower extremity edema secondary to volume overload Continue IV diuresis - Constitutional Vitals: Temp Pulse Resp BP Pulse Ox 98.9 F 76 18 133/77 100 10/17/17 19:00 10/17/17 19:00 10/17/17 19:00 10/17/17 19:00 10/17/17 19:00 General appearance: Present: cooperative, A&O X 3, pleasant, no acute distress, answers questions appropriately - Respiratory Respiratory exam: Present: CTAB. Absent: accessory muscle use, rales, rhonchi, wheezes - Cardiovascular Cardiovascular exam: Present: RRR, +S1, +S2. Absent: diastolic murmur, gallop, rubs, systolic murmur - Expanded Lower Extremities Exam Lower Leg exam: Present: swelling (Bilateral +1 pitting edema) Internal Medicine: Result - Labs CBC & Chem 7: 10/17/17 06:34 10/17/17 06:34 Labs: Short CBC 10/17/17 Range/Units 06:34 WBC 10.0 (4.3-11.1) K/mcL Hgb 11.3 L D (12.9-16.9) g/dL Hct 35.9 L (37.5-50.1) % Plt Count 515 H (140-400) K/mcL Neutrophils # 8.1 (1.6-8.9) K/mcL BMP 10/17/17 06:34 Sodium 135 L Potassium 4.0 Chloride 101 Carbon Dioxide 27 BUN 9 Creatinine 0.96 Glucose 95 Calcium 7.5 L - ABG Interpretation ABG results: PT/INR, D-dimer PT 21.7 Seconds (9.4-12.1) H 10/08/17 13:27 - VTE Documentation of Mechanical Device: Intermittent pneumatic compression device Consult Discharge Plan - Plan Referrals: Joel Menchaca MD [Non-Partnered Physician] -
[2017-10-18] MEDS: *HR* Heparin 5,000 UNIT/ML VIAL SQ SCH (06:27)
[2017-10-18] MEDS: Tiotropium 18 MCG inhalation IH SCH (07:50)
[2017-10-18] MEDS: Budesonide/Formoterol 160/4.5 MDI IH SCH (07:50)
[2017-10-18] MEDS ORDERED: Furosemide 40 MG/4 ML VIAL IVP ONE (08:15)
[2017-10-18 08:49] LABS: Basophils # 0.1 K/mcL (0.0-0.2); Basophils % 0.6 %; Eosinophils # 0.2 K/mcL (0.0-0.6); Eosinophils % 1.8 %; Hematocrit 36.1 % (37.5-50.1); Hemoglobin 11.3 g/dL (12.9-16.9); Immature Granulocytes % 0.7 % (0-4); Lymphocytes # 1.3 K/mcL (0.6-4.6); Lymphocytes % 12.1 %; Mean Corpuscular HGB Conc 31.3 g/dL (31.6-35.5); Mean Corpuscular Volume 86.2 fL (83.0-100.0); Mean Platelet Volume 8.2 fL (9.4-12.4); Monocytes # 0.7 K/mcL (0.0-1.3); Monocytes % 6.6 %; Neutrophils # 8.5 K/mcL (1.6-8.9); Platelet Count 510 K/mcL (140-400); Red Blood Count 4.19 M/mcL (4.19-5.50); Red Cell Distribution Width 16.2 % (11.5-14.5); Segmented Neutrophils % 78.2 %
[2017-10-18 09:26] LABS: BUN/Creatinine Ratio 11 (6-26); Blood Urea Nitrogen 11 mg/dL (8-23); Calcium 7.9 mg/dL (8.6-10.3); Carbon Dioxide 28 mEq/L (23-29); Chloride 101 mEq/L (98-107); Glucose 91 mg/dL (70-105); Osmolality,Calculated 279 (280-300); Potassium 3.8 mEq/L (3.5-5.1); Sodium 135 mEq/L (136-145); eGFR For African Americans > 60 (> 60); eGFR For Non-African Americans > 60 (> 60)
[2017-10-18] MEDS: Nystatin SUSP 5 ML UD.LIQ PO SCH (09:29)
[2017-10-18] MEDS: Aspirin 325 MG TABLET PO SCH (09:35)
[2017-10-18] MEDS: Multivit/Ca/Min/Fe/FA 1 TAB TABLET PO SCH (09:35)
[2017-10-18 10:00] VITALS: BP 126/78
--- NOTE | 2017-10-18 11:13 | General Surgery Progress Note ---
Date of Encounter: 10/18/17 Time of Encounter: 10:55 Subjective Patient reports: no new complaints, feels better Narrative: General Surgery - POD #7 Patient describes feeling better; denies abdominal pain, fevers, chills. Describes a large BM earlier today Patient remains afebrile, currently 98.7; pulse currently 102; during the night 72-74; respiratory rate 18 and unlabored; blood pressure 126/78 Lungs: Lungs bilaterally clear; SPO2 on 2 L per nasal cannula 94-95% Abdomen: Slightly less protuberant; nontender; active bowel sounds. Incision clean and dry and healing well. Extremities: Dependent lower extremity edema diminished, approximately 2+ ( previously 4+) Urine output: 1175 mL for calendar day 10/17/17; no urine output recorded for this date. Satisfactory response to Lasix diuresis Laboratories: White count 10.9, hemoglobin 11.3 with hematocrit 36.1. Platelet count 510,000; differential within normal limits. Sodium 135, potassium 3.8, BUN 11, creatinine 1.01; estimated GFR greater than 60 Operative pathology: Chronic cholecystitis, cholelithiasis; no described perforation or stigmata of perforation Impression: Postoperative day #7, status post open cholecystectomy with evacuation of pericholecystic abscess. Satisfactory postoperative surgical status - acceptable surgical status for discharge home Patient tolerating regular diet without fevers, chills, nausea, or vomiting. Pulmonary status still requires up omental oxygenation to maintain SPO2 greater than 92% Mild postoperative anemia, appears likely due to perioperative fluids. Plan: Outpatient surgical follow-up approximately one week. Objective Vital Signs - Last 8 Hours Temp Pulse Resp BP Pulse Ox 10/18/17 09:59 98.7 F 102 18 126/78 94 10/18/17 07:50 18 95 10/18/17 07:19 97.7 F 72 17 119/71 100 10/18/17 04:04 98.3 F 72 16 130/70 100 Intake and Output 10/17/17 10/18/17 10/18/17 23:59 07:59 15:59 Intake Total 60 / 60 300 / 300 120 / 120 Output Total 750 / 750 0 / 0 Balance -690 / -690 300 / 300 120 / 120 Intake: Oral 60 / 60 300 / 300 120 / 120 Output: Urine 750 / 750 0 / 0 Other: Meal Dinner Breakfast Percent of Meal Consumed 5% 75% # Voids 1 # Bowel Movements 0 1 Weight 98.9 kg Patient Weight 10/18/17 23:59 Weight 98.9 kg - Labs 10/18/17 08:29 10/18/17 08:29 Diabetes panel 10/18/17 Range/Units 08:29 Sodium 135 L (136-145) mEq/L Potassium 3.8 (3.5-5.1) mEq/L Chloride 101 (98-107) mEq/L Carbon Dioxide 28 (23-29) mEq/L BUN 11 (8-23) mg/dL Creatinine 1.01 (0.70-1.30) mg/dL Glucose 91 (70-105) mg/dL Calcium 7.9 L (8.6-10.3) mg/dL Calcium panel 10/18/17 Range/Units 08:29 Calcium 7.9 L (8.6-10.3) mg/dL Pituitary panel 10/18/17 Range/Units 08:29 Sodium 135 L (136-145) mEq/L Potassium 3.8 (3.5-5.1) mEq/L Chloride 101 (98-107) mEq/L Carbon Dioxide 28 (23-29) mEq/L BUN 11 (8-23) mg/dL Creatinine 1.01 (0.70-1.30) mg/dL Glucose 91 (70-105) mg/dL Calcium 7.9 L (8.6-10.3) mg/dL Adrenal panel 10/18/17 Range/Units 08:29 Sodium 135 L (136-145) mEq/L Potassium 3.8 (3.5-5.1) mEq/L Chloride 101 (98-107) mEq/L Carbon Dioxide 28 (23-29) mEq/L BUN 11 (8-23) mg/dL Creatinine 1.01 (0.70-1.30) mg/dL Glucose 91 (70-105) mg/dL Calcium 7.9 L (8.6-10.3) mg/dL - VTE Documentation of Mechanical Device: Intermittent pneumatic compression device Consult Discharge Plan - Plan Referrals: Joel Menchaca MD [Non-Partnered Physician] -
--- NOTE | 2017-10-18 11:56 | Discharge Summary ---
- NOTES TO OUTPATIENT PROVIDER Notes to Outpatient Provider: Follow-up with primary care provider to monitor lower extremity edema and potassium levels Date of Encounter: 10/18/17 Time of Encounter: 11:00 - Discharge Diagnosis (1) Perforated gallbladder Priority: Primary Status: Resolved (2) Acute cholecystitis Priority: Primary Status: Resolved (3) CLYDE (acute kidney injury) Priority: Primary Status: Resolved (4) Severe sepsis Priority: Secondary Status: Resolved (5) Hypertension Priority: Secondary Status: Chronic Qualifiers: Hypertension type: essential hypertension Qualified Code(s): I10 - Essential (primary) hypertension (6) Hypothyroidism Priority: Secondary Status: Chronic Qualifiers: Hypothyroidism type: acquired Qualified Code(s): E03.9 - Hypothyroidism, unspecified Hospital course: Patient is a 72-year-old male with past medical history significant for COPD ( wears 2 L oxygen at home PRN), hypothyroidism, hypertension who presented to the ER on 10/07/17 due to right upper quadrant pain. Patient arrived to the emergency department today with chief complaint of right upper quadrant pain has been going on for about a week and a half. He rates the pain as 7/10 and describes it as a dull ache located in his right upper quadrant. The pain is intermittent without any exacerbating or relieving factors. In the ER, CT abdomen/pelvis showed acute cholecystitis with perihepatic abscess with trace pneumoperitoneum, cholelithiasis, diffuse gallbladder wall thickening, inflammatory changes along the descending colon, hepatic flexure, and proximal transverse colon. Patient was admitted to the medical surgical floor for acute cholecystitis. During patients hospital stay general surgery was consulted and an open cholecystectomy was done. Patient tolerated procedure well with no postop complications. Patient was diuresed due to volume overload and will be discharged to continue a 2 week course of oral Lasix and to follow-up with primary care provider. - Time Spent with Patient Total time spent providing and/or coordinating discharge services: Less than 30 minutes - Discharge Medications Prescriptions: OxyCODONE/APAP 5/325 [Percocet 5/325 MG] 1 each PO Q6HR PRN 3 Days #20 tablet PRN Reason: pain not relieved by Tylenol Furosemide [Lasix] 40 mg PO BID 14 Days #28 tablet Home Medications: Aspirin 325 mg PO DAILY 09/11/16 [History] Multivit,Th Iron,Other Min [Thera-M] 1 tab PO DAILY 09/11/16 [History] Albuterol Sulfate [Albuterol Inhaler] 2 puff IH Q4-6H PRN 04/11/17 [History] Budesonide/Formoterol 160/4.5 [Symbicort 160/4.5] 2 puff IH BIDR 30 Days hfa.aer.[email or web address] 04/15/17 [Rx] Levothyroxine [Synthroid] 125 mcg PO DAILY@0630 #30 tablet 04/15/17 [Rx] Cyclobenzaprine [Flexeril] 10 mg PO TID 10/08/17 [History] Umeclidinium [place] [Incruse Ellipta] 1 puff IH DAILY 10/08/17 [History] Furosemide [Lasix] 40 mg PO BID 14 Days #28 tablet 10/18/17 [Rx] OxyCODONE/APAP 5/325 [Percocet 5/325 MG] 1 each PO Q6HR PRN 3 Days #20 tablet [Rx] Allergies/Adverse Reactions: 3 Allergy/AdvReac Type Severity Reaction Status Date / Time Penicillins [PCN] Allergy Hives Verified 10/08/17 08:36 Date of admission: 10/07/17 20:36 Primary care physician: Marce Andres CNP Consults: 10/14/17 14:18 Consult to Occupational Therapy [CONS] Routine Comment: Evaluate, develop and implement POC Reason for Consult: Patient has had abdominal surgery and needs evaluated for ambulatory and self care ability Does patient have active BEDREST order?: No Is patient medically & hemodynamically stable?: Yes Patient assessed for mobility or mobilized this visit?: Yes Consult to Physical Therapy [CONS] Routine Comment: Evaluate, develop and implement POC Reason for Consult: Patient has had abdominal surgery and needs evaluated for ambulatory and self care ability Does patient have active BEDREST order?: No Is patient medically & hemodynamically stable?: Yes Patient assessed for mobility or mobilized this visit?: Yes - Constitutional Vitals: Temp Pulse Resp BP Pulse Ox 98.7 F 102 18 126/78 94 10/18/17 09:59 10/18/17 09:59 10/18/17 09:59 10/18/17 09:59 10/18/17 09:59 General appearance: Present: cooperative, A&O X 3, pleasant, no acute distress, answers questions appropriately - Respiratory Respiratory exam: Present: CTAB. Absent: accessory muscle use, rales, rhonchi, wheezes - Cardiovascular Cardiovascular exam: Present: RRR, +S1, +S2. Absent: diastolic murmur, gallop, rubs, systolic murmur - Extremities Exam Extremities exam: Present: pedal edema - Patient Status Disposition: Home Health Service Condition: Fair - Discharge Instructions Instructions: Open Cholecystectomy (DC) Follow Up With: Joel Menchaca MD [Non-Partnered Physician] - 10/24/17 3:20 pm Marce Andres CNP [Primary Care Provider] - 10/22/17 1:00 pm - VTE Documentation of Mechanical Device: Intermittent pneumatic compression device
--- NOTE | 2017-10-18 11:57 | Physician Discharge Referral ---
Home Health/Hosp Referral Info Transfer to: Home Health - Diagnosis (1) Perforated gallbladder Status: Resolved (2) Acute cholecystitis Status: Resolved (3) CLYDE (acute kidney injury) Status: Resolved (4) Severe sepsis Status: Resolved (5) Hypertension Status: Chronic (6) Hypothyroidism Status: Chronic (7) DVT prophylaxis Status: Acute - Respiratory Orders Smoking Cessation: Smoking cessation has been advised. For more information, call the [facility] Tobacco Quit Line at 3-971-AMDQ-NOW. - Services Needed Following services are medically necessary services: Physical Therapy - Transfer Medications Prescriptions: OxyCODONE/APAP 5/325 [Percocet 5/325 MG] 1 each PO Q6HR PRN 3 Days #20 tablet PRN Reason: pain not relieved by Tylenol Furosemide [Lasix] 40 mg PO BID 14 Days #28 tablet Home Medications: Aspirin 325 mg PO DAILY 09/11/16 [History] Multivit,Th Iron,Other Min [Thera-M] 1 tab PO DAILY 09/11/16 [History] Albuterol Sulfate [Albuterol Inhaler] 2 puff IH Q4-6H PRN 04/11/17 [History] Budesonide/Formoterol 160/4.5 [Symbicort 160/4.5] 2 puff IH BIDR 30 Days hfa.aer.ad 04/15/17 [Rx] Levothyroxine [Synthroid] 125 mcg PO DAILY@0630 #30 tablet 04/15/17 [Rx] Cyclobenzaprine [Flexeril] 10 mg PO TID 10/08/17 [History] Umeclidinium [place] [Incruse Ellipta] 1 puff IH DAILY 10/08/17 [History] Furosemide [Lasix] 40 mg PO BID 14 Days #28 tablet 10/18/17 [Rx] OxyCODONE/APAP 5/325 [Percocet 5/325 MG] 1 each PO Q6HR PRN 3 Days #20 tablet [Rx] Allergies/Adverse Reactions: 3 Allergy/AdvReac Type Severity Reaction Status Date / Time Penicillins [PCN] Allergy Hives Verified 10/08/17 08:36 Certification: Further, I certify that my clinical findings support that this patient is homebound (i.e. absences from home require considerable and taxing effort and are for medical reasons or sabianist services or infrequently or short duration when for other reasons) because: Homebound Reason: Patient requires assistance of a person or device to safely leave home Attestation: My signature below is to certify that this patient is under my care and that I, or nurse practitioner, or a physician's marketing support assistant working with me, has a face-to -face encounter with this patient.
== END 2017-10-18 15:04 | disposition home health service (06) | DRG 853 ==
LOC: 3ANU 18:08 → EMEROO 18:08 → SUATTDRO 20:36 → 2NNU 20:44 → 3ANU 10-14 18:51
PROVIDERS: ADMIT Internal Medicine; ATTEND Hospitalist
PROC: IRDRAIN (2017-10-08 12:00)